=== PATIENT | female | born 1945 | race Caucasian/White ===

== ENCOUNTER → 2023-11-02 09:28 | Outpatient (REF) | payer MEDICARE, OTHER, SELFPAY ==
[2023-11-02 10:18] LABS: % Basophils 0.2 % (0-2); % Immature Granulocytes 0.3 % (0-0.5); % Lymphocytes 14.3 % (20.5-51.1); % Monocytes 6.1 % (1.7-9.3); % Neutrophils 79.1 % (42.2-75.2); Absolute Lymphocytes 1.3 10^3/uL (1.2-3.4); Absolute Monocytes 0.6 10^3/uL (0.1-0.6); Absolute Neutrophils 7.2 10^3/uL (1.4-6.5); Hematocrit 44.9 % (37.0-47.0); Hemoglobin 14.5 g/dL (12.0-16.0); Mean Corp Hgb Conc. 32.3 g/dL (33.0-37.0); Mean Corpuscular Hgb 28.2 pg (27.0-31.0); Mean Corpuscular Volume 87.4 fL (81.0-99.0); Mean Platelet Volume 10.4 fL (7.4-10.4); Nucleated Red Blood Cells % 0 %; Platelet Count 324 10^3/uL (130-400); Red Blood Cell Count 5.14 10^6/uL (4.20-5.40); Red Cell Dist. Width 13.3 % (11.5-14.5); White Blood Cell Count 9.2 10^3/uL (4.8-10.8)
[2023-11-02 10:37] LABS: ALT (SGPT) 22 U/L (0-35); AST (SGOT) 23 U/L (14-36); Albumin 4.2 g/dl (3.5-5.0); Alkaline Phosphatase 77 U/L (38-126); Blood Urea Nitrogen 18 mg/dl (7-17); Calcium 9.7 mg/dl (8.4-10.2); Carbon Dioxide 29 mmol/L (22-30); Chloride 102 mmol/L (98-107); Glucose 101 mg/dl (70-99); HDL Cholesterol 52 mg/dl; LDL Cholesterol, Calculated 57 mg/dl; Sodium 138 mmol/L (135-145); Total Bilirubin 0.8 mg/dl (0.2-1.3); Total Cholesterol 130 mg/dl (50-199); Total Protein 6.9 g/dl (6.3-8.2); Triglyceride 109 mg/dl (10-149); Very Low Density Lipoprotein 21 mg/dl (0-30); eGFR > 60.00
[2023-11-02 10:50] LABS: Potassium 4.1 mmol/L (3.5-5.1)
[2023-11-02 11:08] LABS: TSH Reflex To Free T4 0.91 uIU/ml (0.47-4.68)
[2023-11-02 12:20] LABS: Glycohemoglobin (HgbA1c) 5.8 % (4.0-5.6)
== END ==
LOC: REG 09:28
PROVIDERS: ATTENDING PHYSICIAN Emergency Medicine
DX: I10 Essential (primary) hypertension (principal); R73.03 Prediabetes; E78.00 Pure hypercholesterolemia, unspecified
CPT/HCPCS: 36415; 80053; 80061; 83036; 84443; 85025

== ENCOUNTER → 2024-01-01 14:36 | Outpatient (REF) | payer MEDICARE, OTHER, SELFPAY ==
[2024-01-01 16:30] LABS: % Basophils 0.3 % (0-2); % Immature Granulocytes 0.3 % (0-0.5); % Lymphocytes 15.1 % (20.5-51.1); % Monocytes 6.9 % (1.7-9.3); % Neutrophils 77.4 % (42.2-75.2); Absolute Lymphocytes 1.5 10^3/uL (1.2-3.4); Absolute Monocytes 0.7 10^3/uL (0.1-0.6); Absolute Neutrophils 7.4 10^3/uL (1.4-6.5); Hemoglobin 14.2 g/dL (12.0-16.0); Mean Corp Hgb Conc. 32.3 g/dL (33.0-37.0); Mean Corpuscular Hgb 27.7 pg (27.0-31.0); Mean Corpuscular Volume 85.8 fL (81.0-99.0); Mean Platelet Volume 10.8 fL (7.4-10.4); Nucleated Red Blood Cells % 0 %; Platelet Count 314 10^3/uL (130-400); Red Blood Cell Count 5.13 10^6/uL (4.20-5.40); Red Cell Dist. Width 13.4 % (11.5-14.5); White Blood Cell Count 9.6 10^3/uL (4.8-10.8)
[2024-01-01 16:44] LABS: Uric Acid 5.9 mg/dl (2.5-6.2)
[2024-01-01 16:48] LABS: Erythrocyte Sed Rate 13 mm/hour (0-20)
== END ==
LOC: REG 14:36
PROVIDERS: ATTENDING PHYSICIAN Orthopaedic Surgery; FAMILY PHYSICIAN Emergency Medicine
DX: M10.9 Gout, unspecified (principal)
CPT/HCPCS: 36415; 84550; 85025; 85652

== ENCOUNTER 2024-03-21 10:13 | Emergency (ER) | payer MEDICARE, OTHER, SELFPAY ==
[2024-03-21 10:20] VITALS: BP 127/83
[2024-03-21 10:46] VITALS: BP 122/59
[2024-03-21 10:50] VITALS: BMI 30.7
[2024-03-21 11:00] VITALS: BP 113/62
[2024-03-21] MEDS: TORADOL 30 MG IV (11:39)
[2024-03-21] MEDS: NSS 1000 IV (11:39)
[2024-03-21] MEDS: ZOFRAN 4 MG IV (11:40)
[2024-03-21 11:50] LABS: % Basophils 0.1 % (0-2); % Immature Granulocytes 0.4 % (0-0.5); % Lymphocytes 7.1 % (20.5-51.1); % Neutrophils 84.4 % (42.2-75.2); Absolute Immature Granulocytes 0.1 10^3/uL (0-0.05); Absolute Monocytes 1.1 10^3/uL (0.1-0.6); Hemoglobin 16.4 g/dL (12.0-16.0); Mean Corp Hgb Conc. 34.9 g/dL (33.0-37.0); Mean Platelet Volume 9.9 fL (7.4-10.4); Nucleated Red Blood Cells % 0 %; Platelet Count 379 10^3/uL (130-400); Red Blood Cell Count 5.66 10^6/uL (4.20-5.40); Red Cell Dist. Width 13.2 % (11.5-14.5); White Blood Cell Count 14.2 10^3/uL (4.8-10.8)
[2024-03-21 12:12] LABS: ALT (SGPT) 17 U/L (0-35); AST (SGOT) 21 U/L (14-36); Albumin 4.3 g/dl (3.5-5.0); Alkaline Phosphatase 64 U/L (38-126); Blood Urea Nitrogen 28 mg/dl (7-17); Calcium 9.8 mg/dl (8.4-10.2); Carbon Dioxide 33 mmol/L (22-30); Chloride 94 mmol/L (98-107); Estimated Creatinine Clearance 55 ml/min; Glucose 114 mg/dl (70-99); Lipase 46 U/L (23-300); Potassium 3.6 mmol/L (3.5-5.1); Sodium 139 mmol/L (135-145); Total Protein 6.7 g/dl (6.3-8.2); eGFR > 60.00
[2024-03-21 13:49] LABS: Urine Albumin Trace (Neg - Trace); Urine Bilirubin Negative (Negative); Urine Character Clear (Clear); Urine Color Yellow; Urine Glucose Negative (Negative); Urine Ketone Negative (Negative); Urine Leukocyte 2+ (Negative); Urine Nitrite Negative (Negative); Urine Occult Blood Negative (Negative); Urine Urobilinogen Negative (Neg - 1+)
[2024-03-21 13:58] LABS: Urine Bacteria Few (Negative); Urine Hyaline Cast 0-2 /LPF (0-2); Urine Red Blood Cell 0-2 /HPF (0-2); Urine Squamous Cell 21-25 /LPF (Few)
[2024-03-21] MEDS: NSS 500 IV (15:26)
[2024-03-21] MEDS: REGLAN 10 MG IV (15:27)
[2024-03-21] MEDS: BENTYL 20 MG IM (15:27)
[2024-03-21 17:07] VITALS: BP 156/71
--- NOTE | 2024-03-21 17:18 | ED.GENMED ---
History of Present Illness
General
Chief Complaint: Abdominal Pain
Source: patient and family
Exam Limitations: none
Time Seen by Provider: 03/21/24 11:12
Nursing documentation reviewed up to this point in time: agreed with
History of Present Illness
History of Present Illness:
78-year-old female past ministry of hypertension hyperlipidemia, GERD anxiety depression presenting to the emergency department today with concerns of constipation over the past 4 days or so there is that she is very nauseous unable to tolerate by
mouth and has severe lower abdominal pain. Denies any fever chest pain shortness of breath.
Past History
Past History
ED Past Medical History: HTN and Psychiatric (Anxiety)
ED Past Surgical History: Appendectomy, Gynecological and Orthopedic (Right TKR)
Social History
Tobacco: Non-smoker
Alcohol: None
Drug: None
Personal:
Living: with family
Employment: Retired
Family History
Family History: Hypertension
Review of Systems
Review of Systems
Allergies reviewed?: Yes
All Other Systems: ROS reviewed and negative except as documented in HPI and ROS
Phy Exam
Physical Exam
Physical Exam:
GENERAL: Alert , in no apparent distress
EYE: pupils equal and reactive
NECK: Supple, no significant adenopathy.
ENT: o/p clr, mmm.
CARDIAC: Regular rate and rhythm .
LUNGS: Clear breath sounds bilaterally, no acute respiratory distress, no wheezes/rales/rhonchi
ABDOMEN: Diffuse abdominal pain somewhat bloated.
NEUROLOGICAL: Alert and oriented, no focal neuro deficits
SKIN: Warm and dry, skin intact.
MUSCULOSKELETAL: No edema, well perfused.
PSYCH: Normal and appropriate interaction.
Course
Orders/Labs/Results
Orders:
Orders
03/21/24 11:18
0.9% Sodium Chloride 1000 ml [Nss] 1,000 ml IV BOLUS
Ketorolac [Toradol] 30 mg IV NOW STA
Ondansetron Injectable [Zofran] 4 mg IV NOW STA
03/21/24 11:19
CT Abd/Pel (IV only)-DH only Urgent
Comment:
Reason For Exam: diffuse abd pain, no BM for 5 days
03/21/24 11:37
Complete Blood Count/With Diff Urgent
Comprehensive Metabolic Panel Urgent
Lipase Urgent
03/21/24 13:26
Urinalysis Reflex To Culture Urgent
Date Specimen was Collected: 03/21/24
Time Specimen was Collected: 13:25
Urine Microscopic Reflex Cult Urgent
Urine Culture Urgent
DALI Source: U
Specimen Description:
Date Specimen was Collected: 03/21/24
Time Specimen was Collected: 13:25
03/21/24 15:21
0.9% Sodium Chloride 500 ml [Nss] 500 ml IV BOLUS
Dicyclomine HCl [Bentyl] 20 mg IM NOW STA
Metoclopramide [Reglan] 10 mg IV NOW STA
03/21/24 17:25
Lactic Acid Urgent
Abnormal Lab Results
03/21/24 03/21/24
11:37 13:26
WBC 14.2 H 10^3/uL
(4.8-10.8)
RBC 5.66 H 10^6/uL
(4.20-5.40)
Hgb 16.4 H g/dL
(12.0-16.0)
Abs Immat Gran (auto) 0.1 H 10^3/uL
(0-0.05)
Absolute Neuts (auto) 12.0 H 10^3/uL
(1.4-6.5)
Absolute Lymphs (auto) 1.0 L 10^3/uL
(1.2-3.4)
Absolute Monos (auto) 1.1 H 10^3/uL
(0.1-0.6)
Neutrophils % 84.4 H %
(42.2-75.2)
Lymphocytes % 7.1 L %
(20.5-51.1)
Chloride 94 L mmol/L
(98-107)
Carbon Dioxide 33 H mmol/L
(22-30)
BUN 28 H mg/dl
(7-17)
Glucose 114 H mg/dl
(70-99)
Leukocyte Esterase Rfl 2+ A
(Negative)
Urine Bacteria (Reflex) Few A
(Negative)
03/21/24 11:37
03/21/24 11:37
Vital Signs
Initial and Last Documented VS:
Initial Vital Signs
Temp Pulse Resp BP Pulse Ox
98.1 F 71 18 127/83 96
03/21/24 10:20 03/21/24 10:20 03/21/24 10:20 03/21/24 10:20 03/21/24 10:20
Last Documented Vital Signs
Temp Pulse Resp BP Pulse Ox
98.1 F 72 21 156/71 96
03/21/24 10:20 03/21/24 17:07 03/21/24 17:07 03/21/24 17:07 03/21/24 17:00
MDM/Problems Addressed
MDM/Problems Addressed:
78-year-old female presenting to the emergency department today with concerns of initial constipation over the past few days but worsening diffuse abdominal pain over the past 24 hours or so. Upon arrival vital signs are normal. Patient does have
a white count of 14.2 on labs elevated BUN to creatinine ratio of 28 2.9 likely representing dehydration was given fluids here. Urinalysis without acute abnormalities. CT scan did not show bowel obstruction but did show large volume of loose
liquid stool no signs of significant inflammation.. Patient was given multiple medications including Bentyl multiple nausea medications and pain medication upon reassessment patient did have some improvement and did appear comfortable. The case
was discussed with her and her daughter who does help her at home they are to monitor symptoms at home try medications to help with bowel movements and if symptoms are progressing or her nausea is persisting without ability to tolerate by mouth she
will return for further assessment.
*Critical Care Note
Total Time (30-74mins, 75-104mins- exclusive of procedures): Not Applicable
ED Attending Note
-
Portions of this chart may have been created with voice recognition software.� Occasional wrong word or��sound alike� substitutions may have occurred due to the inherent limitations of voice recognition software.
Discharge Plan
Departure
Patient Disposition: Home (Routine Discharge)
Date of Disposition: 03/21/24
Time of Disposition: 17:40
Patient with high blood pressure during this ER visit?: No
Condition: Good
Covid-19: Not Applicable
Discharge Problem:
Abdominal pain
Instructions: Constipation, Adult (DC), Abdominal Pain
Prescriptions:
New
ondansetron 4 mg tablet,disintegrating
4 mg PO Q8H PRN (Reason: nausea and vomiting) Qty: 7 0RF
No Action
atenolol 25 MG tablet
25 mg PO BID
hydrochlorothiazide 25 MG tablet
25 mg PO DAILY
rosuvastatin [Crestor] 5 mg Tablet
5 mg PO QPM
aspirin [Baby Aspirin] 81 mg Tablet,Chewable
81 mg PO DAILY
buspirone [BuSpar] 5 mg Tablet
5 mg PO BID
Referrals:
Anjana Cooper MD [Family Provider] -
Activity Restrictions/Additional Instructions:
You came to the emergency department today with concerns of abdominal discomfort. Here you had a reassuring assessment. Your CT scan did not show any bowel obstruction it did show a large amount of stool. Medications to help with stooling should
be helpful over the next few days. You did have some findings on your labs that would indicate a slight degree of dehydration. You were given fluids here which alleviated that. It is important that you start to drink fluids including electrolytes
at home. If you are not able to tolerate by mouth please return for further assessment here.
Interventions
Interventions:
*Risk Screen - Suicide Last Done: 03/21/24 10:20
*General Assessment Last Done: 03/21/24 10:20
*Neglect/Abuse Screening Last Done: 03/21/24 10:20
ED- Fall Risk Assessment Last Done: 03/21/24 10:52
*ED COVID-19 Vaccine History Last Done: 03/21/24 10:20
CY-Oopvml-Stdzoykqjq Assessment Last Done: 03/21/24 10:56
Discharge Date and Time
Print Language: LITHUANIAN
[2024-03-21 17:49] LABS: Lactic Acid 1.3 mmol/L (0.7-2.0)
[2024-03-21 18:03] VITALS: BP 156/71
== END 2024-03-21 18:05 | disposition home or self-care (01) ==
LOC: EMR 10:13
PROVIDERS: Physician Assistant; EMERGENCY PHYSICIAN Emergency Medicine; FAMILY PHYSICIAN Emergency Medicine
DX: R10.9 Unspecified abdominal pain (principal); K59.00 Constipation, unspecified; I10 Essential (primary) hypertension; E78.00 Pure hypercholesterolemia, unspecified; K21.9 Gastro-esophageal reflux disease without esophagitis; F41.8 Other specified anxiety disorders; Z82.49 Family history of ischemic heart disease and other diseases of the circulatory system; Z90.49 Acquired absence of other specified parts of digestive tract
CPT/HCPCS: 99284; 96374; 96375; 96372; 96361; 74177; 80053; 81003; 81015; 83605; 83690; 85025; 87086; Q9967

== ENCOUNTER 2024-03-24 13:59 | Inpatient (IN) | payer MEDICARE, OTHER, SELFPAY ==
[2024-03-24] VITALS (13 sets, daily range): BP systolic 97–132; BP diastolic 59–75; BMI 30.2; BMI 29.0
--- NOTE | 2024-03-24 09:09 | ED.GENMED ---
History of Present Illness
General
Chief Complaint: Chest Pain
Source: patient
Exam Limitations: none
Time Seen by Provider: 03/24/24 08:43
Nursing documentation reviewed up to this point in time: agreed with
History of Present Illness
History of Present Illness:
Patient treated in ED 3 days ago and diagnosed with potential constipation, after blood work and CT scan, returns to ED with continual difficulty with bowel movements, associated with decreased appetite with nausea sensation. Patient has also noted
increased abdominal distention, as well as 'indigestion'. Patient denies chest pain or shortness of breath. Secondary to discomfort, patient felt 'sweaty' last night. Denies fever or chills. Denies recent change in medications or diet. Denies
recent illness. Denies recent travel. Denies sick contact.
Past History
Past History
ED Past Medical History: HTN and Psychiatric (Anxiety)
ED Past Surgical History: Appendectomy, Gynecological and Orthopedic (Right TKR)
Social History
Tobacco: Non-smoker
Alcohol: None
Drug: None
Personal:
Living: with family
Employment: Retired
Family History
Family History: Hypertension
Review of Systems
Review of Systems
Allergies reviewed?: Yes
All Other Systems: ROS reviewed and negative except as documented in HPI and ROS
Constitutional: Reports no symptoms; Denies fever
EENT: Reports no symptoms
Respiratory: Reports no symptoms
Cardiac: Reports no symptoms; Denies chest pain
ABD/GI: Reports abdominal pain, nausea and constipated; Denies vomiting
Musculoskeletal: Reports no symptoms
Skin: Reports no symptoms
Neurological: Reports no symptoms
Phy Exam
Physical Exam
Physical Exam:
Physical Exam
General: mild distress, uncomfortable. afebrile
Head: nc/at. eomi
Neck: supple. no meningeal signs.
Heart: s1/s2 regular rate and rhythm, no murmur. equal radial pulses.
Lungs: no acute respiratory distress. clear bilaterally
Abdomen: normal bowel sounds. diffusely tender with mild distention.
Neuro: alert and oriented. no focal neurological deficits
Skin: no rash
Psychiatric: well kept. interactive and cooperative
Extremities: no edema. no calf tenderness.
Scores
Heart Score for Chest Pain Patients
STEMI patient?: Not applicable
Course
Orders/Labs/Results
Orders:
Orders
03/24/24 Breakfast
NPO
Allow oral meds: No
Allow clear liquids: No
03/24/24 08:21
Electrocardiogram (*1) Urgent
Reason for Study: Chest Pain
03/24/24 08:22
EKG- Treatment ONCE
03/24/24 09:03
Complete Blood Count/With Diff Urgent
03/24/24 09:08
Add On- LAB Urgent
Tests Added?: lipase, magnesium
03/24/24 09:09
0.9% Sodium Chloride 500 ml [Nss] 500 ml IV BOLUS
Ondansetron Injectable [Zofran] 4 mg IV NOW STA
Pantoprazole [Protonix IV] 40 mg IV NOW STA
03/24/24 09:11
CT Abd/pel W Iv And Oral Contr Urgent
Comment:
Reason For Exam: abd pain w distention
Iohexol [Omnipaque] See Protocol PO NOW STA
03/24/24 09:29
Troponin I Urgent
03/24/24 10:50
Comprehensive Metabolic Panel Urgent
Lipase Urgent
Magnesium Urgent
Urinalysis Reflex To Culture Urgent
Date Specimen was Collected: 03/24/24
Time Specimen was Collected: 10:38
Urine Microscopic Reflex Cult Urgent
03/24/24 13:33
0.9% Sodium Chloride [Nss (Preservative Free)] 0.25 ml IV ONCE@1333 ONE
Lorazepam [Ativan] 0.5 mg IV NOW STA
03/24/24 13:45
Admit/Transfer Patient As Directed
Co-Sign Provider:
Level of Care: Inpatient admission
Assign to:: Telemetry
Physician / Group: scott
Diagnosis: SBO
Reason for Telemetry: Arrhythmia
Date to Stop Telemetry: 03/27/24
Time to Stop Telemetry: 11:00
Reason for Hospitalization: SBO
Expected length of stay greater than two midnights?: Yes
ELOS- Estimated Length of Stay in days: 3
I certify the patient meets the requirements for IP care: Yes
PRN Pain Medication Management As Directed
May give lesser potent ordered pain med per pt: Yes
preference::
Protocol:: Medication orders for pain may be administered in a
manner that supports deferring to patient preference
when the pt is:
- Requesting an ordered lesser potent pain medication.
Least to most potent pain medications are defined
as: acetaminophen < NSAID < tramadol < opioids
(morphine, oxycodone, hydromorphone).
- Requesting a lesser dose of the same medication IF
ORDERED.
- Requesting a less intrusive route of administration
if both routes are prescribed by the provider (PO <
IV).
03/24/24 13:46
Code Status As Directed
Resuscitation Status: Do not resuscitate
Reached after discussion with pt or family/Healthcare POA: Yes
DNR Bracelet Application ONCE
03/24/24 13:50
Cr Chest Portable [CR Chest Portable - 1 View] Stat
Comment:
Reason For Exam: post gtube placement
Reason Study Needs to be Portable: Unable to Transport
03/24/24 14:00
Flush (0.9% Sodium Chloride) [Flush (Nss)] See Dose Instructions IV PER PROTOCOL
03/24/24 17:27
0.9% Sodium Chloride 1000 ml [Nss] 1,000 ml IV 80 mls/hr
HydrALAZINE [Apresoline] 5 mg IV Q6HPRN PRN
Lorazepam [Ativan] 0.5 mg IV Q8HPRN PRN
Morphine Sulfate 0.5 mg IV Q4HPRN PRN
Ondansetron Injectable [Zofran] 4 mg IV Q6HPRN PRN
03/24/24 17:27
CARDIOLOGY CONSULT Routine
Consulting Provider: Elmo Boyd
Was physician already notified: Yes
Colon Surgery Consult [ColoRectal Surgery Consult] Routine
Consulting Provider: Michael Leiva
Was physician already notified: Yes
Activity As Directed
Activity Level: As Tolerated
Vital Signs As Directed
Frequency: Per unit guidelines
DX Deep Vein Thrombosis Video Routine
03/24/24 18:00
Enoxaparin Sodium [Lovenox] 40 mg SC QPM
03/25/24 06:17
Basic Metabolic Panel IN AM
Complete Blood Count/No Diff IN AM
Magnesium IN AM
03/26/24 06:00
Basic Metabolic Panel IN AM
Complete Blood Count/No Diff IN AM
03/27/24 06:00
Basic Metabolic Panel IN AM
Complete Blood Count/No Diff IN AM
03/27/24 11:00
DC Protocol for Telemetry ONCE
03/28/24 06:00
Basic Metabolic Panel IN AM
Complete Blood Count/No Diff IN AM
03/29/24 06:00
Basic Metabolic Panel IN AM
Complete Blood Count/No Diff IN AM
Abnormal Lab Results
03/24/24 03/24/24
09:03 10:50
WBC 13.3 H 10^3/uL
(4.8-10.8)
RBC 6.01 H 10^6/uL
(4.20-5.40)
Hgb 17.0 H g/dL
(12.0-16.0)
Hct 49.2 H %
(37.0-47.0)
Plt Count 467 H D 10^3/uL
(130-400)
Abs Immat Gran (auto) 0.1 H 10^3/uL
(0-0.05)
Absolute Neuts (auto) 11.3 H 10^3/uL
(1.4-6.5)
Absolute Lymphs (auto) 1.0 L 10^3/uL
(1.2-3.4)
Absolute Monos (auto) 0.8 H 10^3/uL
(0.1-0.6)
Neutrophils % 84.8 H %
(42.2-75.2)
Lymphocytes % 7.6 L %
(20.5-51.1)
Chloride 97 L mmol/L
(98-107)
Carbon Dioxide 32 H mmol/L
(22-30)
BUN 43 H mg/dl
(7-17)
Glucose 107 H mg/dl
(70-99)
Magnesium 2.9 H mg/dl
(1.6-2.3)
Total Protein 6.2 L g/dl
(6.3-8.2)
Urine Ketones 2+ A
(Negative)
Urine Bilirubin 1+ A
(Negative)
Leukocyte Esterase Rfl Trace A
(Negative)
Urine Bacteria (Reflex) Few A
(Negative)
03/24/24 09:03
03/24/24 10:50
Vital Signs
Initial and Last Documented VS:
Initial Vital Signs
Temp Pulse Resp BP Pulse Ox
97.6 F 67 18 97/71 96
03/24/24 08:29 03/24/24 08:29 03/24/24 08:29 03/24/24 08:29 03/24/24 08:29
Last Documented Vital Signs
Temp Pulse Resp BP Pulse Ox
98.4 F 64 18 147/68 93
03/25/24 07:30 03/25/24 07:30 03/25/24 07:30 03/25/24 07:30 03/25/24 07:30
MDM/Problems Addressed
MDM/Problems Addressed:
History, exam, and CT scan consistent with bowel obstruction. NG tube will be placed, as patient remains symptomatic with significant abdominal distention.
Dr. Michael Leiva, colorectal surgery, notified via [facility] text.
*Critical Care Note
Total Time (30-74mins, 75-104mins- exclusive of procedures): Not Applicable
ED Attending Note
-
Portions of this chart may have been created with voice recognition software.� Occasional wrong word or��sound alike� substitutions may have occurred due to the inherent limitations of voice recognition software.
Discharge Plan
Departure
Patient Disposition: Admit
Date of Disposition: 03/24/24
Time of Disposition: 13:00
Admit to: Telemetry
Presentation/result/management discussed w/ accepting MD/DO: Hospitalist
Discharge Problem:
Bowel obstruction, Second degree heart block
Interventions
Interventions:
*Risk Screen - Suicide Last Done: 03/24/24 09:30
*General Assessment Last Done: 03/24/24 09:30
*Neglect/Abuse Screening Last Done: 03/24/24 09:30
*Nursing Disposition Last Done: 03/24/24 17:21
ED- Cardiac Assessment Last Done: 03/24/24 09:30
Discharge Date and Time
Discharge Date/Time: 03/24/24 17:21
[2024-03-24 09:12] LABS: % Basophils 0.5 % (0-2); % Eosinophils 0.8 % (0-6); % Immature Granulocytes 0.5 % (0-0.5); % Lymphocytes 7.6 % (20.5-51.1); % Monocytes 5.8 % (1.7-9.3); % Neutrophils 84.8 % (42.2-75.2); Absolute Basophils 0.1 10^3/uL (0-0.2); Absolute Eosinophils 0.1 10^3/uL (0-0.7); Absolute Immature Granulocytes 0.1 10^3/uL (0-0.05); Absolute Monocytes 0.8 10^3/uL (0.1-0.6); Absolute Neutrophils 11.3 10^3/uL (1.4-6.5); Hematocrit 49.2 % (37.0-47.0); Mean Corp Hgb Conc. 34.6 g/dL (33.0-37.0); Mean Corpuscular Hgb 28.3 pg (27.0-31.0); Mean Corpuscular Volume 81.9 fL (81.0-99.0); Mean Platelet Volume 9.5 fL (7.4-10.4); Nucleated Red Blood Cells % 0 %; Platelet Count 467 10^3/uL (130-400); Red Blood Cell Count 6.01 10^6/uL (4.20-5.40); Red Cell Dist. Width 13.5 % (11.5-14.5); White Blood Cell Count 13.3 10^3/uL (4.8-10.8)
[2024-03-24] MEDS: OMNIPAQUE 50 ML PO (09:35)
[2024-03-24] MEDS: ZOFRAN 4 MG IV ×2 (09:35→15:00)
[2024-03-24] MEDS: PROTONIX IV 40 MG IV (09:35)
[2024-03-24] MEDS: NSS 500 IV (09:36)
[2024-03-24 10:07] LABS: Troponin I 0.022 ng/ml
[2024-03-24 11:06] LABS: Urine Albumin Trace (Neg - Trace); Urine Bilirubin 1+ (Negative); Urine Character Clear (Clear); Urine Color Yellow; Urine Glucose Negative (Negative); Urine Ketone 2+ (Negative); Urine Leukocyte Trace (Negative); Urine Nitrite Negative (Negative); Urine Occult Blood Negative (Negative); Urine Specific Gravity 1.015 (<1.030); Urine Urobilinogen Negative (Neg - 1+)
[2024-03-24 11:12] LABS: ALT (SGPT) 18 U/L (0-35); AST (SGOT) 24 U/L (14-36); Albumin 3.8 g/dl (3.5-5.0); Alkaline Phosphatase 63 U/L (38-126); Blood Urea Nitrogen 43 mg/dl (7-17); Calcium 9.4 mg/dl (8.4-10.2); Carbon Dioxide 32 mmol/L (22-30); Chloride 97 mmol/L (98-107); Estimated Creatinine Clearance 53 ml/min; Glucose 107 mg/dl (70-99); Lipase 45 U/L (23-300); Magnesium 2.9 mg/dl (1.6-2.3); Potassium 3.6 mmol/L (3.5-5.1); Sodium 140 mmol/L (135-145); Total Bilirubin 1.3 mg/dl (0.2-1.3); Total Protein 6.2 g/dl (6.3-8.2); eGFR 57.66
[2024-03-24 11:42] LABS: Urine Red Blood Cell None Seen /HPF (0-2)
[2024-03-24 11:43] LABS: Urine Bacteria Few (Negative)
--- NOTE | 2024-03-24 13:02 | HPS.HSE ---
Family Physician
-
Family Physician: Anjana Cooper MD
Chief Complaint
-
constipation
History of Present Illness
78 year old with PMH for HTN, anxiety, depression, HLD presented to us with constipation. stated decreased appetite and nausea. denied vomit. patient stated no BM for for more than a week. stated abdominal distention and pain. patient was
evaluated here on . she had an CT with the impression of no bowel obstruction. denied ALVA, dizzy or syncopal episode. denied fever, chills, chest pain, sob.denied dysuria or hematuria
CT today with distal colonic obstruction located in the proximal sigmoid colon. NGT placed in ER. admitting for further management.
Medical History
Past Medical History
Past Medical History: Reports Other
Additional Past Medical History:
Anxiety
Hypertension
Depression
Irritable bowel syndrome
Hypertension hyperlipidemia
Past Surgical History: Reports Other
Additional Past Surgical History:
Appendectomy
Hysterectomy
left knee replacement
Right eye cataract surgery
Social History
Tobacco: Non-smoker
Alcohol: None
Drug: None
Family History
Family History: Not pertinent
Allergies / Home Medications
Allergies reflects when Allergies were last updated in [facility].
Home Medications with original date entered in [facility]
Allergy/Medication List:
Allergies
Allergy/AdvReac Type Severity Reaction Status Date / Time
amoxicillin [From Augmentin] Allergy Hives Verified 03/24/24 08:30
clavulanic acid Allergy Hives Verified 03/24/24 08:30
[From Augmentin]
lisinopril Allergy Hives Verified 03/24/24 08:30
Sulfa (Sulfonamide Allergy Rash Verified 03/24/24 08:30
Antibiotics)
Home Medications
atenolol 25 mg tablet 25 mg PO BID 07/28/12
hydrochlorothiazide 25 mg tablet 25 mg PO DAILY 07/28/12
aspirin 81 mg chewable tablet 81 mg PO DAILY 08/08/22
alprazolam 0.25 mg tablet 0.25 mg PO BIDPRN PRN anxiety 03/24/24
escitalopram oxalate 5 mg tablet 5 mg PO DAILY 03/24/24
rosuvastatin 5 mg tablet 5 mg PO QPM 03/24/24
Review of Systems
-
Constitutional: Reports No Symptoms
EENT: Reports No Symptoms
Respiratory: Reports No Symptoms
Cardiac: Reports No Symptoms
Abdomen/GI: Reports Nausea and Constipated
: Reports No Symptoms
Musculoskeletal: Reports No Symptoms
Skin: Reports No Symptoms
Neurological: Reports No Symptoms
Endocrine: Reports No Symptoms
Hematologic/Lymphatic: Reports No Symptoms
Psych: Reports No Symptoms
Physical Exam
Vital Signs
Vital Signs
Temp Pulse Resp BP Pulse Ox
97.6 F 68 18 113/69 96
03/24/24 08:29 03/24/24 11:00 03/24/24 08:29 03/24/24 11:00 03/24/24 10:00
Physical Exam
General: Well Developed, Well Nourished and No Apparent Distress
HEENT: NormoCephalic, Moist mucous membranes and Atraumatic
Respiratory: Clear
Cardiac: S1/S2 and Regular Rhythm; No Murmur or Rub
GI: Tender and Distended; No Organomegaly
Rectal: Deferred by Provider
Musculoskeletal: No Clubbing, No Cyanosis and No Edema
Skin: No Rash
Neuro: AO x 3 and Nonfocal/grossly intact
Psych: Calm
Laboratory Results
-
03/24/24 09:03
03/24/24 10:50
Laboratory Results
Total Bilirubin 1.3 mg/dl (0.2-1.3) 03/24/24 10:50
AST 24 U/L (14-36) 03/24/24 10:50
ALT 18 U/L (0-35) 03/24/24 10:50
Alkaline Phosphatase 63 U/L (38-126) 03/24/24 10:50
Troponin I 0.022 ng/ml 03/24/24 09:29
Lipase 45 U/L (23-300) 03/24/24 10:50
Data Reviewed
-
CT Scan: Report Reviewed by me
Lab Data: Labs Reviewed by me
Impression/Plan
-
# Severe small bowel and colonic obstruction located in the proximal sigmoid colon
-NGT placed in ER
-NPO
-Colorectal surgery consulted
-CT abdomen pelvis with severe small bowel and colonic distention proximal to a DISTAL COLONIC OBSTRUCTION located in the PROXIMAL SIGMOID COLON. Diagnostic possibilities are (1) an obstructing adenocarcinoma or (2) an obstructing stricture
secondary to chronic diverticular disease.
2. Severe diverticulosis in the sigmoid colon.
3. Small amount of peritoneal fluid in the pelvis.
4. Previous appendectomy and hysterectomy.
5. Small hiatal hernia.
6. Moderate number of bilateral parapelvic renal cysts.
7. 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
#2nd degree Mobitz 1 AV block
-EKG with SINUS RHYTHM WITH 2ND DEGREE A-V BLOCK (MOBITZ I) WITH 2:1 A-V CONDUCTION
-Avoid AV blocking agents
-cardiology consulted
# Leukocytosis, thrombocytosis likely reactive
-Defer antibiotics at at this time
-Continue to monitor CBC
#hemoconcentration likely dehydration
-hgb 17.0, 49.2
-Normal saline continued
#hypermagnesemia
-magnesium 2.9
-Fluids continued
-Monitor magnesium in a.m.
#anxiety
= Ativan IV every 8 hours ordered for anxiety
#essential HTN
-Hold HCTZ and atenolol
-Hydralazine as needed for systolic BP greater than 160
#DVT prophylaxis
-Lovenox subcu
# CODE STATUS
-DNR
--- NOTE | 2024-03-24 13:18 | W.PN.UPDATE ---
Update Note
Progress Note Update
I have independently evaluated the patient and agree with assessment and plan written on the same date. In addition:
78yo F with PMHx of diverticulitis, HTN, HLD came with nausea and abd pain for 1 week. She was seen in ED [address] at that time showed constipation, but with decompressed sigmoid. At this time concern for large bowel obstruction with
transition point in the sigmoid.
Patient has Hx of hysterectomy and appendectomy - high risk for adhesions
Accidental finding of 2nd degree AVB type 2
A/P:
#Large bowel obstruction
NG for decompression
NPO
Colorectal Sx eval
IVF
#2nd degree Mobitz type 1 AVB
Incidental
avoid AVB agents
Cardio consult
#Essential HTN
use IV meds as needed to control BP
#HLD
#Anxiety d/o
cont meds when able to take PO
#Leukocytosis
#Thrombocytosis
Reactive
no inducation for Abx
follow CBC
#Diverticulosis
#Small hiatal hernia
#DJD
follow up with PCP upon d/c
DVT ppx hep
Full code
We have spent at least 60min admitting the patient
[2024-03-24] MEDS: ATIVAN 0.5 MG IV (13:39)
[2024-03-24] MEDS: NSS (PRESERVATIVE FREE) 0.25 ML IV (13:40)
--- NOTE | 2024-03-24 14:51 | CON.CRS ---
Medical History
-
History of Present Illness:
Patient is a 78-year-old female with PMH of HTN, HLD, anxiety/depression and GERD who presents with concern of constipation and nausea associated with abdominal bloating. She first presented to [place] ED on 03/21/2024 due to significant nausea
and no BMs for 4 days. At that time, a CT scan was done, but a report is not available in [facility]. Per the ED note, the CT scan 'did not show bowel obstruction but did show large volume of loose liquid stools, no signs of significant
inflammation', so the patient was discharged with a bowel regiment. Over the last few days, she tried magnesium citrate and other motility agents, but did not pass any stool or much flatus. As she has had significant nausea and a couple of
episodes of dry heaving, she came back to the ED. She denies any vomiting. She has been having significant abdominal discomfort and bloating, but no abdominal pain. In the ED, her WBC was 13.[address] scan was done showing dilated small bowel
and proximal colon up to the point of a sigmoid obstruction, possibly a mass versus diverticular stricture. The cecum measuring 9 cm, no evidence of perforation or pneumatosis.
Past Medical History
Past Medical History: Other (As above)
Past Surgical History: Other (Appendectomy, right TKR, hysterectomy, shoulder surgery x2)
Social History
Tobacco: Non-Smoker
Alcohol: None
Personal:
Employment: Retired
Family History
Family History: Other (No CRC)
Allergies / Home Medications
Allergy/AdvReac Type Severity Reaction Status Date / Time
amoxicillin [From Augmentin] Allergy Hives Verified 03/24/24 08:30
clavulanic acid Allergy Hives Verified 03/24/24 08:30
[From Augmentin]
lisinopril Allergy Hives Verified 03/24/24 08:30
Sulfa (Sulfonamide Allergy Rash Verified 03/24/24 08:30
Antibiotics)
�Medication �Instructions �Recorded �Confirmed �Type
atenolol 25 mg tablet 25 mg PO BID Blood Pressure 07/28/12 03/24/24 History
hydrochlorothiazide 25 mg tablet 25 mg PO DAILY Blood Pressure 07/28/12 03/24/24 History
aspirin 81 mg chewable tablet 81 mg PO DAILY Blood Clot 08/08/22 03/24/24 History
Prevention/Tx
alprazolam 0.25 mg tablet 0.25 mg PO BIDPRN PRN anxiety 03/24/24 03/24/24 History
escitalopram oxalate 5 mg tablet 5 mg PO DAILY Mental Health/Anxiety 03/24/24 03/24/24 History
rosuvastatin 5 mg tablet 5 mg PO QPM High Cholesterol 03/24/24 03/24/24 History
Review of Systems
-
All other systems: Negative unless noted
A 10 point review of systems was completed, and was negative except as per HPI.
Physical Exam
Vital Signs
Temp 97.6 F 03/24/24 08:29
Pulse 68 03/24/24 11:00
Resp Rate 18 03/24/24 08:29
Blood pressure 113/69 03/24/24 11:00
SaO2 96 03/24/24 10:00
03/23/24 03/24/24 03/25/24
06:59 06:59 06:59
Actual Weight 87.5 kg
Body Mass Index (BMI) 30.2
Lab Results / Allergies
03/24/24 09:03
03/24/24 10:50
WBC 13.3 10^3/uL (4.8-10.8) H 03/24/24 09:03
Hgb 17.0 g/dL (12.0-16.0) H 03/24/24 09:03
Hct 49.2 % (37.0-47.0) H 03/24/24 09:03
Plt Count 467 10^3/uL (130-400) H D 03/24/24 09:03
Abs Immat Gran (auto) 0.1 10^3/uL (0-0.05) H 03/24/24 09:03
Neutrophils % 84.8 % (42.2-75.2) H 03/24/24 09:03
Allergy/AdvReac Type Severity Reaction Status Date / Time
amoxicillin [From Augmentin] Allergy Hives Verified 03/24/24 08:30
clavulanic acid Allergy Hives Verified 03/24/24 08:30
[From Augmentin]
lisinopril Allergy Hives Verified 03/24/24 08:30
Sulfa (Sulfonamide Allergy Rash Verified 03/24/24 08:30
Antibiotics)
Physical Exam
General: Well Developed and No Apparent Distress
HEENT: Normocephalic and Atraumatic
Respiratory: Non Labored Respirations
GI: Soft, Tender (Non tender, just some upper abdominal discomfort with palpation; no rebound or guarding) and Distended (Moderately distended)
Skin: Warm and Dry
Neuro: AO x 3
Data Reviewed
-
CT Scan: Discussed with Physician (With radiology, [facility]; with Dr. Stone), Discussed with Patient and Discussed with Family (Daughter was present)
Labs: Labs Reviewed by me, Discussed with Patient and Discussed with Family
Assessment / Plan
-
78-year-old female with PMH of HTN, HLD, anxiety/depression and GERD who presents with concern of constipation and nausea associated with abdominal bloating. She first presented to [place] ED on 03/21/2024 due to significant nausea and no BMs for
4 days. At that time, a CT scan was done, but a report is not available in [facility]. Per the ED note, the CT scan 'did not show bowel obstruction but did show large volume of loose liquid stools, no signs of significant inflammation', so the
patient was discharged with a bowel regiment. Over the last few days, she tried magnesium citrate and other motility agents, but did not pass any stool or much flatus. As she has had significant nausea and a couple of episodes of dry heaving, she
came back to the ED. She denies any vomiting or abdominal pain. Her last colonoscopy was >8yrs ago, likely in [place], reported as normal except for polyps and diverticulosis. In the ED, her WBC was 13.3 and a CTAP with PO contrast was done
showing dilated small bowel and proximal colon up to the point of a sigmoid obstruction, possibly a mass versus diverticular stricture. The cecum measuring 9 cm, no evidence of perforation or pneumatosis.
AFVSS
� Large bowel obstruction due to sigmoid narrowing; differential includes sigmoid colon mass versus stricture
�Recommend NGT placement, keep n.p.o. with IVF
�No evidence of hemodynamic instability or peritonitis
�Discussed with Dr. Ramos with GI for possible colonic stent; will plan for tomorrow morning
�Discussed risks and benefits regarding emergent surgery, including but not limited to, definitive relief of obstruction, needing an ostomy and an exploratory laparotomy; discussed risks and benefits regarding nonoperative measures with stent
placement, including but not limited to worsening clinical status and perforation, failure of stent to relieve obstruction or occlusion of stent; after lengthy discussion with patient and patient's daughter (who is a nurse in our [employer]), patient
was in agreement with moving forward with an attempt at colonic stent
�I explained that prior to the procedure, I would obtain her consent to move forward with ex lap and possible ostomy in the case that a stent fails to decompress the colon so that the surgery would not be delayed due to her inability to consent for
herself due to the effects of anesthesia; patient wanted a little more time to consider this, but the daughter was in agreement
� Strict n.p.o. with NGT, no p.o. meds
� Minimize narcotic pain meds, okay for Toradol PRN
� IVF
� Recommend DVT PPx with Lovenox
� Okay for OOB with assist, encourage IS
� Appreciate hospitalist
--- NOTE | 2024-03-24 16:58 | CON.CAR ---
Consultation
Consultation Request
Date/Time Consultation Requested: 03/24/24
Date/Time Consultation Performed: 03/24/24
Requesting Provider: Roula Mejia
Performing Provider: Oliver
Reason for Consultation: AV block
Medical History
-
Chief Complaint: abd distention, nausea, constipation
History of Present Illness:
78-year-old woman past medical history as below who presents with worsening constipation, abdominal distention and nausea. Cardiology is consulted for bradycardia and second-degree AV block.
Patient evaluated in the ED 3 days ago and was diagnosed with constipation. Now returns with worsening symptoms and CT of the abdomen and pelvis revealed bowel obstruction for which GI and surgery are discussing potential stenting +/- ex lap. NG
tube placed in the ER with greater than 1 L of gastric contents suctioned, patient tells me with this she has had some improvement in her symptoms.
In regards to her heart rate, we discussed that prior outpatient nuclear monitoring technician revealed second-degree AV block Mobitz type I in 2020. Telemetry here also showing Mobitz, no high-grade AV block or significant pauses. Patient is not reporting any
lightheadedness, dizziness or syncope to me. Her chest/epigastric discomfort seems to be related to her GI symptoms and is improving with NG tube placement and decompression.
Past medical history:
Hypertension
Hyperlipidemia
Palpitations
Family history of premature CAD
Anxiety
Past Medical History
Past Medical History: Other (as above)
Past Surgical History: Other (as above)
Social History
Tobacco: Non-Smoker
Employment: Retired
Family History
Family History: Reviewed & Not Pertinent
Allergies / Home Medications
Allergy/AdvReac Type Severity Reaction Status Date / Time
amoxicillin [From Augmentin] Allergy Hives Verified 03/24/24 08:30
clavulanic acid Allergy Hives Verified 03/24/24 08:30
[From Augmentin]
lisinopril Allergy Hives Verified 03/24/24 08:30
Sulfa (Sulfonamide Allergy Rash Verified 03/24/24 08:30
Antibiotics)
�Medication �Instructions �Recorded �Confirmed �Type
atenolol 25 mg tablet 25 mg PO BID Blood Pressure 07/28/12 03/24/24 History
hydrochlorothiazide 25 mg tablet 25 mg PO DAILY Blood Pressure 07/28/12 03/24/24 History
aspirin 81 mg chewable tablet 81 mg PO DAILY Blood Clot 08/08/22 03/24/24 History
Prevention/Tx
alprazolam 0.25 mg tablet 0.25 mg PO BIDPRN PRN anxiety 03/24/24 03/24/24 History
escitalopram oxalate 5 mg tablet 5 mg PO DAILY Mental Health/Anxiety 03/24/24 03/24/24 History
rosuvastatin 5 mg tablet 5 mg PO QPM High Cholesterol 03/24/24 03/24/24 History
Review of Systems
-
History Source: Patient and Family
All other systems: Negative unless noted
Physical Exam
Vital Signs
Temp Pulse Resp BP Pulse Ox
97.6 F 72 18 109/66 94
03/24/24 08:29 03/24/24 16:00 03/24/24 08:29 03/24/24 16:00 03/24/24 16:00
Lab Results
03/24/24 09:03
03/24/24 10:50
Troponin I 0.022 ng/ml 03/24/24 09:29
Physical Exam
General: Well Developed
HEENT: Normocephalic and Other (NG tube with bilious contents)
Respiratory: Clear
Cardiac: S1/S2 and Regular Rhythm
Breast: Deferred by me
GI: Distended
Musculoskeletal: No Edema
Skin: Warm and Dry
Neuro: Awake and Alert
Psych: Calm
Impression / Plan
-
Assembler Clip On Sunglasses: Cristiana
Assessment:
Bowel obstruction
2nd degree AV block, Mobitz type I
Hypertension
Hyperlipidemia
Palpitations
Family history of premature CAD
Anxiety
Plan:
-We are asked to evaluate for bradycardia and heart block, ECG and telemetry reviewed which shows sinus rhythm with Wenckebach. I do not see any high-grade AV block or significant pauses.
-Not reporting any lightheadedness, dizziness or syncope
-Prior outpatient nuclear monitoring technician reviewed from 2020 which also identified Wenckebach
-Suspect this is being precipitated by high vagal tone in the setting of bowel obstruction
-Would hold atenolol for now
-Monitor on telemetry overnight
Discussed with patient and daughter who is at bedside
Data Reviewed
-
EKG: Tracing Personally Visualized and interpreted
CT Scan: Image Personally Visualized and interpreted and Report Reviewed by me
Medical Tests (Nuc Med, Echo etc): Report Reviewed by me
Labs: Labs Reviewed by me
Old Records: Reviewed
--- NOTE | 2024-03-24 18:17 | CM ---
CM reviewed patient's chart. Spoke with patient at bedside. CM introduced self and role. Patient with an NGT. It's putting out a large amount of dark green output. Daughter at bedside as well.
PCP: Dr. Anjana Lincoln
Pharmacy: [facility] in [place]
Living situation: Patient lives alone in an apt at [facility]. She has a son and daughter for support.
Finances: Patient denies any social insecurities. She is able to afford her housing, clothing, medications, food, utilities and transportation. 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 Her son pays her bills for her.
DME/Ambulation: Patient ambulates independently. She owns a cane.
Transportation: Rubin's daughter will provide transportation once she is discharged. Patient does not drive.
Agreeable to home health care?: Yes, if needed. (Daughter shared [facility] uses [facility] for PT).
ANTICIPATED DISCHARGE DISPOSITION:
Return home to [facility].
CM will continue to follow case and available for further assistance.
[2024-03-24] MEDS: LOVENOX 40 MG SC (18:28)
[2024-03-24] MEDS: NSS 1000 IV (18:40)
[2024-03-24] MEDS: MORPHINE SULFATE 0.5 MG IV (21:50)
[2024-03-25] VITALS (11 sets, daily range): BP systolic 125–157; BP diastolic 57–74
[2024-03-25 06:40] LABS: Hematocrit 41.6 % (37.0-47.0); Hemoglobin 14.6 g/dL (12.0-16.0); Mean Corp Hgb Conc. 35.1 g/dL (33.0-37.0); Mean Corpuscular Hgb 28.6 pg (27.0-31.0); Mean Corpuscular Volume 81.4 fL (81.0-99.0); Mean Platelet Volume 9.9 fL (7.4-10.4); Platelet Count 383 10^3/uL (130-400); Red Blood Cell Count 5.11 10^6/uL (4.20-5.40); Red Cell Dist. Width 13.5 % (11.5-14.5); White Blood Cell Count 10.3 10^3/uL (4.8-10.8)
[2024-03-25 06:52] LABS: Blood Urea Nitrogen 43 mg/dl (7-17); Calcium 8.8 mg/dl (8.4-10.2); Carbon Dioxide 32 mmol/L (22-30); Chloride 99 mmol/L (98-107); Estimated Creatinine Clearance 57 ml/min; Glucose 79 mg/dl (70-99); Magnesium 2.9 mg/dl (1.6-2.3); Potassium 3.3 mmol/L (3.5-5.1); Sodium 139 mmol/L (135-145); eGFR > 60.00
[2024-03-25] MEDS: NSS 1000 IV ×2 (07:50→22:28)
[2024-03-25] MEDS: KCL 260 MEQ IV (07:51)
[2024-03-25 08:03] LABS: APTT 31.6 Sec (23.4-35.0)
--- NOTE | 2024-03-25 08:45 | WOUNDNOTE ---
[facility] RN NOTE: Patient visited for stoma marking x4 quadrants. Abdomen distended, tender. Procedure and rationale explained to patient and daughter. Rectus abdominal muscle was located and care was taken to avoid creases and folds. Patient was
assessed in laying and sitting positions. Patient and daughter made aware that abdominal topography is likely to change after surgery and that surgeon will make final determination of stoma placement. Will continue to follow with patient if stoma is
created.
--- NOTE | 2024-03-25 09:01 | CON.GI ---
Consultation
-
Date/Time Consultation Requested: 03/25/2024
Date/Time Consultation Performed: 03/25/2024
Performing Provider: Moe Ramos
Reason for Consultation: colonic obstruction
Medical History
Chief Complaint / HPI
Chief Complaint: colonic obstruction
History of Present Illness:
Patient is a 78-year-old female with history of HTN, GERD, and HPL who presents with obstipation and nausea. Patient states that for past 4 days she was not able to have bowel movement and does not think she passed flatus. She also has been having
worsening nausea but denies vomiting and had associated bloating/abdominal distention. Her last colonoscopy was couple years ago at outside facility. She recently presented to ER with similar complaint on 03/21/[address] scan of abdomen
which showed significant stool burden but no bowel obstruction was noted and was discharged home. CT abdomen and pelvis with oral contrast this time showed severe dilation of small bowel and colon proximal to the obstruction located in proximal
sigmoid colon suspicious for obstructing mass versus chronic diverticulitis stricture.
Past Medical History
Past Medical History: GERD, HTN and Hypercholesterolemia
Past Surgical History: Other
Social History
Tobacco: Non-Smoker
Alcohol: None
Drug: None
Allergies / Home Medications
Allergy/AdvReac Type Severity Reaction Status Date / Time
amoxicillin [From Augmentin] Allergy Hives Verified 03/24/24 08:30
clavulanic acid Allergy Hives Verified 03/24/24 08:30
[From Augmentin]
lisinopril Allergy Hives Verified 03/24/24 08:30
Sulfa (Sulfonamide Allergy Rash Verified 03/24/24 08:30
Antibiotics)
�Medication �Instructions �Recorded
atenolol 25 mg tablet 25 mg PO BID Blood Pressure 07/28/12
hydrochlorothiazide 25 mg tablet 25 mg PO DAILY Blood Pressure 07/28/12
aspirin 81 mg chewable tablet 81 mg PO DAILY Blood Clot 08/08/22
Prevention/Tx
alprazolam 0.25 mg tablet 0.25 mg PO BIDPRN PRN anxiety 03/24/24
escitalopram oxalate 5 mg tablet 5 mg PO DAILY Mental Health/Anxiety 03/24/24
rosuvastatin 5 mg tablet 5 mg PO QPM High Cholesterol 03/24/24
Review of Systems
Vital Signs
Temp Pulse Resp BP Pulse Ox
98.4 F 64 18 147/68 93
03/25/24 07:30 03/25/24 07:30 03/25/24 07:30 03/25/24 07:30 03/25/24 07:30
Physical Exam
Exam
General: Well Developed and Well Nourished
HEENT: Normocephalic
Respiratory: Clear
Cardiac: S1/S2
GI: Soft, Non Tender and Distended
Results
WBC 10.3 10^3/uL (4.8-10.8) 03/25/24 06:17
Hgb 14.6 g/dL (12.0-16.0) 03/25/24 06:17
Hct 41.6 % (37.0-47.0) 03/25/24 06:17
MCV 81.4 fL (81.0-99.0) 03/25/24 06:17
Plt Count 383 10^3/uL (130-400) 03/25/24 06:17
Absolute Neuts (auto) 11.3 10^3/uL (1.4-6.5) H 03/24/24 09:03
PT 15.0 Sec (11.4-14.6) H 03/25/24 07:28
INR 1.20 03/25/24 07:28
APTT 31.6 Sec (23.4-35.0) 03/25/24 07:28
Sodium 139 mmol/L (135-145) 03/25/24 06:17
Potassium 3.3 mmol/L (3.5-5.1) L 03/25/24 06:17
Chloride 99 mmol/L (98-107) 03/25/24 06:17
Carbon Dioxide 32 mmol/L (22-30) H 03/25/24 06:17
BUN 43 mg/dl (7-17) H 03/25/24 06:17
Creatinine 0.9 mg/dL (0.6-1.0) 03/25/24 06:17
Calcium 8.8 mg/dl (8.4-10.2) 03/25/24 06:17
Total Bilirubin 1.3 mg/dl (0.2-1.3) 03/24/24 10:50
AST 24 U/L (14-36) 03/24/24 10:50
ALT 18 U/L (0-35) 03/24/24 10:50
Alkaline Phosphatase 63 U/L (38-126) 03/24/24 10:50
Lipase 45 U/L (23-300) 03/24/24 10:50
Diagnostic Image Results:
CT abd/pel 03/24/2024
IMPRESSION:
1. Severe small bowel and colonic distention proximal to a DISTAL COLONIC OBSTRUCTION located in the PROXIMAL SIGMOID COLON. Diagnostic possibilities are (1) an obstructing adenocarcinoma or (2) an obstructing stricture secondary to chronic
diverticular disease.
2. Severe diverticulosis in the sigmoid colon.
3. Small amount of peritoneal fluid in the pelvis.
4. Previous appendectomy and hysterectomy.
5. Small hiatal hernia.
6. Moderate number of bilateral parapelvic renal cysts.
7. 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
Prior GI Procedures:
EGD:
Colonoscopy:
Assessment / Plan
-
78-year-old female with HTN, HPL, and GERD presents with 4-day history of obstipation, abdominal distention, and worsening nausea without vomiting.
Impression / Rec:
1. Obstipation, abdominal distention, and nausea - CT images were reviewed by me. CT w/ oral contrast showed severe small bowel and colonic distention proximal to the point of obstruction which is located in proximal sigmoid colon. This
obstructing lesion is suspected to be either obstructing mass versus chronic diverticulitis stricture. Has NG tube in place. Will plan for colonoscopy with intention of colonic stent placement.
Total Time Spent with Patient (in minutes): 55
-
-
Thank you for consultation and allowing me to participate in the patient's care. Please call the distribution systems superintendent GI physician during the after hours with any questions or concerns.
--- NOTE | 2024-03-25 09:48 | W.PN.CARDCBS ---
Addendum entered and electronically signed by Farhad Moran MD 03/25/24 15:35:
Patient seen, interviewed and examined by me.
Well-appearing, no acute distress
NG tube in place
Regular rate and rhythm with normal S1 and S2, no S3 no S4. There is a grade 1/6 apical holosystolic murmur and no rubs. PMI is normally placed.
Lungs are clear to auscultation bilaterally without wheezes rales or rhonchi.
Abdomen soft nontender nondistended with normoactive bowel sounds
Extremities show trace pretibial edema bilaterally no clubbing or cyanosis.
Agree with advanced practice professionals assessment and plan as noted below.
She has type I second-degree AV block and has remained asymptomatic. There is no indication for pacing. Would avoid AV yudy blocking agents and would not be unexpected to have periods of higher degree of AV block when she bears down or Valsalvas.
An echocardiogram has been ordered for tomorrow and we will review when available. There is no cardiac contraindication for any surgery or procedures.
Original Note:
Today's Communication / Plan
-
Continue to hold AV yudy blocking agents
Colonic stent procedure performed today
Continue to monitor on telemetry
Check TSH
Consider echo tomorrow if patient stable
Impression / Plan
-
Wave Solder Offbearer: Cristiana
Assessment:
Presented 03/24/2024 with abdominal pain, nausea and constipation x 1 wk
Bowel obstruction
2nd degree AV block, Mobitz type I
Hypertension
Hyperlipidemia
Palpitations
Sinus rhythm with first-degree AV block with intermittent second-degree AV block Mobitz type I
Family history of premature CAD
Anxiety
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
3-day SP3Hy monitor completed 11/20/2020: Sinus rhythm with heart rate range 45 to 106 bpm, average heart rate 69 bpm. First-degree AV block with brief episodes of winky block noted. There was no significant pauses, 12 episodes of atrial tachycardia
with isolated PACs and rare PVCs
Echo 09/01/2008: EF 60% with mild pulmonary hypertension, RVSP 42 mmHg
Plan:
-Presented 03/24/2024 with abdominal pain, nausea and constipation x 1 wk with concerns for large bowel obstruction. Failed conservative management thus far. Underwent placement of colonic stent after being found to have stricture 03/25/2024.
-cardiology asked to evaluate for bradycardia and heart block There is no high-grade AV block or significant pauses. Prior outpatient radiation monitor reviewed from 2020 which also identified Wenckebach.
-Would continue to monitor on telemetry
-Suspect this is being precipitated by high vagal tone in the setting of bowel obstruction.
-Not reporting any lightheadedness, dizziness or syncope. Could consider repeating outpatient monitor once improved from bowel obstruction standpoint
-Would avoid AV yudy blocking agents. Patient had been maintained on atenolol 25 mg twice a day as outpatient. Continue to hold for now; blood pressure stable.
-Would consider checking echocardiogram likely tomorrow
Reviewed with patient, patient's daughter who is at bedside and Dr. Gonsalez
Progress Note - Wave Solder Offbearer
Subjective
Date of Service: March 25, 2024
Patient seen and examined. Patient laying in bed post colonic stent implant. NG tube remains in place. She denies chest pain, shortness of breath, dizziness or lightheadedness
Objective
Labs:
03/25/24 06:17
03/25/24 06:17
Labs
Hgb 14.6 g/dL (12.0-16.0) 03/25/24 06:17
Hct 41.6 % (37.0-47.0) 03/25/24 06:17
Plt Count 383 10^3/uL (130-400) 03/25/24 06:17
PT 15.0 Sec (11.4-14.6) H 03/25/24 07:28
INR 1.20 03/25/24 07:28
APTT 31.6 Sec (23.4-35.0) 03/25/24 07:28
Sodium 139 mmol/L (135-145) 03/25/24 06:17
Potassium 3.3 mmol/L (3.5-5.1) L 03/25/24 06:17
BUN 43 mg/dl (7-17) H 03/25/24 06:17
Creatinine 0.9 mg/dL (0.6-1.0) 03/25/24 06:17
Glucose 79 mg/dl (70-99) 03/25/24 06:17
Troponins
03/24/24 03/24/24
09:03 09:29
Troponin I Cancelled 0.022
Vital Signs and I&O:
Vital Signs
Temp Pulse Resp BP Pulse Ox
98.4 F 64 18 147/68 93
03/25/24 07:30 03/25/24 07:30 03/25/24 07:30 03/25/24 07:30 03/25/24 07:30
Vital Signs
Temp Pulse Resp BP Pulse Ox
98.4 F 64 18 147/68 93
03/25/24 07:30 03/25/24 07:30 03/25/24 07:30 03/25/24 07:30 03/25/24 07:30
Intake & Output
03/23/24 03/24/24 03/25/24 03/26/24
06:59 06:59 06:59 06:59
Intake Total 1690 / 1690 0 / 0
Output Total 1695 / 1695
Balance -5 / -5 0 / 0
Physical Exam
Physical Exam
GEN: No distress, awake, Ox3, lying in bed with NG tube in place
HEENT: supple, anicteric, mmm
LUNGS: CTA anteriorly, no wheezes/rales
CV: Reg, S1/S2, faint murmur at left sternal border, no rubs or gallop
ABD: soft, BS+, NT/ND
EXT: No edema, clubbing or cyanosis
NEURO: Gross non-focal
SKIN: No rash, warm, dry, pink
--- NOTE | 2024-03-25 11:40 | W.PN.CRS1 ---
Today's Communication / Plan
-
as below
Assessment/Plan
-
78-year-old female with PMH of HTN, HLD, anxiety/depression and GERD who presents with concern of constipation and nausea associated with abdominal bloating. She first presented to [facility] ED on 03/21/2024 due to significant nausea and no BMs for
4 days. At that time, a CT scan was done, but a report is not available [facility]. Per the ED note, the CT scan 'did not show bowel obstruction but did show large volume of loose liquid stools, no signs of significant inflammation', so the
patient was discharged with a bowel regiment. Over the last few days, she tried magnesium citrate and other motility agents, but did not pass any stool or much flatus. As she has had significant nausea and a couple of episodes of dry heaving, she
came back to the ED. She denies any vomiting or abdominal pain. Her last colonoscopy was >8yrs ago, likely in [place], reported as normal except for polyps and diverticulosis. In the ED, her WBC was 13.3 and a CTAP with PO contrast was done
showing dilated small bowel and proximal colon up to the point of a sigmoid obstruction, possibly a mass versus diverticular stricture. The cecum measuring 9 cm, no evidence of perforation or pneumatosis.
03/25 - successful placement of colonic stent, findings concerning for diverticular stricture, no obvious mass seen, no biopsies taken
AFVSS
WBC 10.3 from 13.3, Cr 0.9
� Large bowel obstruction due to sigmoid narrowing; s/p stent, c/f diverticular stricture, no biopsies
�Cont NGT, keep n.p.o. with IVF
�Will monitor post procedure for improvement in distention
�Had lengthy discussion with patient and patient's daughter prior to procedure; patient consented to ex lap with possible ostomy in case stent unsuccessful or develops complication post�stent placement
� Minimize narcotic pain meds, okay for Toradol PRN
�Continue DVT PPx with Lovenox
� Okay for OOB with assist, encourage IS
� Appreciate hospitalist
Subjective Data
Subjective Data
Date of Service: March 25, 2024, seen at bedside around 8 AM
No overnight events.
Pain and distention improved since placement of NGT
Denies nausea/vomiting. N.p.o. with NGT.
No flatus or BMs overnight.
Objective Data
-
Vital Signs
Temp Pulse Resp BP Pulse Ox
97.5 F 71 14 139/68 92
03/25/24 10:30 03/25/24 11:30 03/25/24 11:30 03/25/24 11:30 03/25/24 11:30
Intake & Output
03/24/24 03/25/24 03/26/24
06:59 06:59 06:59
Intake Total 1690 / 1690 0 / 0
Output Total 1695 / 1695
Balance -5 / -5 0 / 0
Intake:
Oral fluids 600 / 600 0 / 0
IV fluids (Total) 1000 / 1000
Amount instilled into GI Tube ( 90 / 90
Total)
[place] Sump 90 / 90
Output:
Gastrointestinal tube output ( 1170 / 1170
Total)
[place] Sump 200 / 200
Urine, Voided 525 / 525
Other:
Number of approximated MODERATE 1
amounts of urine
Lab Results
03/25/24 06:17
03/25/24 06:17
Physical Exam
-
General: No Acute Distress and AOx3
HEENT: Grossly Normal
Abdomen: Soft, Distended (Moderately distended, slightly improved since yesterday), Non Tender, No Guarding and No Rebound
Skin: Warm and Dry
--- NOTE | 2024-03-25 12:57 | W.PN.HOSP.TC ---
Today's Communication/Plan
-
cont mgmt as per ColorectalSx
Assessment / Plan
Assessment / Plan
78yo F with PMHx of 2nd degree AVB type 2, diverticulitis, HTN, HLD came with nausea and abd pain for 1 week. She was seen in ED [address] at that time showed constipation, but with decompressed sigmoid. At this time concern for large
bowel obstruction with transition point in the sigmoid. Found stricture 2/2 diverticulosis, had stent placed on 03/25/24
A/P:
#Large bowel obstruction
NG for decompression
NPO
Colorectal Sx eval: s/p stent on 03/25/24 - no biopsy taken as no signs of tumor
IVF
#2nd degree Mobitz type 1 AVB
Incidental
avoid AVB agents
Cardio consult
#Essential HTN
use IV meds as needed to control BP
#HLD
#Anxiety d/o
cont meds when able to take PO
#Leukocytosis
#Thrombocytosis
Reactive
no inducation for Abx
follow CBC
#Diverticulosis
#Small hiatal hernia
#DJD
follow up with PCP upon d/c
DVT ppx hep
DNR/DNI
I ahve spent at least 37min reviewing chart, test results and direct aptient care
Anticipated Discharge: 24 - 48 hours
Subjective/Interval History
-
Date of Service: March 25, 2024
Objective Data
-
Labs:
Laboratory Results
03/25/24 03/25/24
06:17 07:28
WBC 10.3
Hgb 14.6
Hct 41.6
Plt Count 383
PT 15.0 H
INR 1.20
APTT 31.6
Sodium 139
Potassium 3.3 L
Chloride 99
Carbon Dioxide 32 H
BUN 43 H
Creatinine 0.9
Glucose 79
Calcium 8.8
Vital Signs:
Vital Signs
Temp Pulse Resp BP Pulse Ox
97.6 F 71 14 139/68 98
03/25/24 11:30 03/25/24 11:30 03/25/24 11:30 03/25/24 11:30 03/25/24 11:30
I&O
03/24/24 03/25/24 03/26/24
06:59 06:59 06:59
Intake Total 1690 / 1690 0 / 0
Output Total 1695 / 1695
Balance -5 / -5 0 / 0
Review of Systems
-
History Source: Patient
All other systems: Reviewed and negative
Physical Exam
-
General: Comfortable
Respiratory: Clear to Auscultation
Cardiac: Regular Rhythm
GI: Soft, Nontender and Nondistended
Neuro: Awake, Alert, Oriented and AO x 3
[2024-03-25] MEDS: LOVENOX 40 MG SC (17:26)
[2024-03-25 17:32] LABS: TSH Reflex To Free T4 0.83 uIU/ml (0.47-4.68)
--- NOTE | 2024-03-25 20:49 | VATNOTE ---
unsuccessful IV restart x2; another VAT RN to attempt.
--- NOTE | 2024-03-25 20:50 | VATNOTE ---
left arm IV removed; noted entire left arm swollen compared to right arm. +2 - 3 edema; elevated left arm on folded pillow. No pain per pt.
[2024-03-25] MEDS: ATIVAN 0.5 MG IV (22:28)
[2024-03-25] MEDS: NSS (PRESERVATIVE FREE) 0.25 ML IV (22:28)
[2024-03-26 03:10] VITALS: BP 150/64
[2024-03-26 05:48] LABS: % Basophils 0.1 % (0-2); % Immature Granulocytes 0.5 % (0-0.5); % Lymphocytes 6.7 % (20.5-51.1); % Monocytes 9.2 % (1.7-9.3); % Neutrophils 83.5 % (42.2-75.2); Absolute Immature Granulocytes 0.1 10^3/uL (0-0.05); Absolute Monocytes 1.4 10^3/uL (0.1-0.6); Absolute Neutrophils 12.3 10^3/uL (1.4-6.5); Hematocrit 40.3 % (37.0-47.0); Hemoglobin 13.8 g/dL (12.0-16.0); Mean Corp Hgb Conc. 34.2 g/dL (33.0-37.0); Mean Corpuscular Hgb 28.6 pg (27.0-31.0); Mean Corpuscular Volume 83.4 fL (81.0-99.0); Mean Platelet Volume 10.1 fL (7.4-10.4); Nucleated Red Blood Cells % 0 %; Platelet Count 345 10^3/uL (130-400); Red Blood Cell Count 4.83 10^6/uL (4.20-5.40); Red Cell Dist. Width 13.6 % (11.5-14.5); White Blood Cell Count 14.7 10^3/uL (4.8-10.8)
[2024-03-26 06:14] LABS: Blood Urea Nitrogen 31 mg/dl (7-17); Calcium 8.2 mg/dl (8.4-10.2); Carbon Dioxide 24 mmol/L (22-30); Chloride 104 mmol/L (98-107); Estimated Creatinine Clearance 74 ml/min; Glucose 82 mg/dl (70-99); Magnesium 2.8 mg/dl (1.6-2.3); Potassium 3.6 mmol/L (3.5-5.1); Sodium 141 mmol/L (135-145); eGFR > 60.00
[2024-03-26 07:10] LABS: Prealbumin (Transthyretin) 14.3 mg/dl (17.6-36.0)
[2024-03-26 07:15] VITALS: BP 164/61
--- NOTE | 2024-03-26 09:00 | W.PN.CRS1 ---
Today's Communication / Plan
-
clears
abd xrays
Assessment/Plan
-
03/25 - successful placement of colonic stent, findings concerning for diverticular stricture, no obvious mass seen, no biopsies taken
AFVSS
WBC 14.7 from 10.3
� Large bowel obstruction due to sigmoid narrowing; s/p stent, c/f diverticular stricture, no biopsies
� Advance diet to clears
� Abdominal xrays this AM
� Minimize narcotic pain meds, okay for Toradol PRN
� Continue DVT PPx with Lovenox
� Okay for OOB, PT evaluated on 03/25
� Appreciate hospitalist
Subjective Data
Subjective Data
Date of Service: March 26, 2024
Patient states she feels weak because she has not been eating. She has no nausea or vomiting. She is thirsty. She is not sure if she has had any flatus. She has had a little bit of stools.
Objective Data
-
Vital Signs
Temp Pulse Resp BP Pulse Ox
98.5 F 74 18 164/61 94
03/26/24 07:15 03/26/24 07:15 03/26/24 07:15 03/26/24 07:15 03/26/24 07:15
Intake & Output
03/25/24 03/26/24 03/27/24
06:59 06:59 06:59
Intake Total 1690 / 1690 1060 / 1060
Output Total 1695 / 1695 0 / 0
Balance -5 / -5 1060 / 1060
Intake:
Oral fluids 600 / 600 0 / 0
IV fluids (Total) 1000 / 1000 1000 / 1000
Amount instilled into GI Tube ( 90 / 90 60 / 60
Total)
[place] Sump 90 / 90 60 / 60
Output:
Gastrointestinal tube output ( 1170 / 1170 0 / 0
Total)
[place] Sump 200 / 200 0 / 0
Urine, Voided 525 / 525
Other:
Number of approximated MODERATE 2
amounts of urine
Number of unmeasured liquid
stools
Rectum 4
Lab Results
03/26/24 05:13
03/26/24 05:13
Physical Exam
-
General: No Acute Distress and AOx3
Abdomen: Soft, Distended (Improving) and Non Tender
Skin: Warm and Dry
[2024-03-26 11:45] VITALS: BP 166/71
--- NOTE | 2024-03-26 12:25 | CM ---
CM reviewed chart and pt with nursing
TT/Dr Gonsalez requesting PT order for eval
Pt may have VN or SNF needs per nursing
Discharge Disposition- home likely with services, watch for higher needs
--- NOTE | 2024-03-26 12:51 | W.PN.HOSP.TC ---
Today's Communication/Plan
-
mgmt as per Colorectal Sx
Assessment / Plan
Assessment / Plan
78yo F with PMHx of 2nd degree AVB type 2, diverticulitis, HTN, HLD came with nausea and abd pain for 1 week. She was seen in ED [address] at that time showed constipation, but with decompressed sigmoid. At this time concern for large
bowel obstruction with transition point in the sigmoid. Found stricture 2/2 diverticulosis, had stent placed on 03/25/24
A/P:
#Large bowel obstruction
NG for decompression
NPO
Colorectal Sx eval: s/p stent on 03/25/24 - no biopsy taken as no signs of tumor. Eventual surgical intervention planned in 1-2 weeks or sooner of condition deteriorate. Pharmaceutical Scientist clearance needed
IVF
#2nd degree Mobitz type 1 AVB
Incidental
avoid AVB agents
Cardio consult
#Essential HTN
use IV meds as needed to control BP
#HLD
#Anxiety d/o
cont meds when able to take PO
#Leukocytosis
#Thrombocytosis
Reactive
no inducation for Abx
follow CBC
#Diverticulosis
#Small hiatal hernia
#DJD
follow up with PCP upon d/c
DVT ppx hep
DNR/DNI
I ahve spent at least 37min reviewing chart, test results and direct aptient care
Anticipated Discharge: > 48 hours
Subjective/Interval History
-
Date of Service: March 26, 2024
Objective Data
-
Labs:
Laboratory Results
03/26/24
05:13
WBC 14.7 H
Hgb 13.8
Hct 40.3
Plt Count 345
Sodium 141
Potassium 3.6
Chloride 104
Carbon Dioxide 24
BUN 31 H
Creatinine 0.7
Glucose 82
Calcium 8.2 L
Vital Signs:
Vital Signs
Temp Pulse Resp BP Pulse Ox
98.6 F 77 16 166/71 96
03/26/24 11:45 03/26/24 11:45 03/26/24 11:45 03/26/24 11:45 03/26/24 11:45
I&O
03/25/24 03/26/24 03/27/24
06:59 06:59 06:59
Intake Total 1690 / 1690 1060 / 1060
Output Total 1695 / 1695 0 / 0
Balance -5 / -5 1060 / 1060
Review of Systems
-
History Source: Patient
All other systems: Reviewed and negative
Abdomen/GI: Reports Abdominal Pain and Nausea
Physical Exam
-
General: Appears in Distress and Pain
HEENT: Normocephalic
Respiratory: Clear to Auscultation
Cardiac: Regular Rhythm
GI: Soft, Nontender and Nondistended
Rectal: Brown
Musculoskeletal: No Clubbing, No Cyanosis and No Edema
Skin: Warm
Neuro: Awake
Psych: Anxious
--- NOTE | 2024-03-26 13:17 | W.PN.CARDCBS ---
Addendum entered and electronically signed by Scott Cruz MD 03/26/24 14:38:
I saw and examined the patient.
The SUPERINTENDENT RENTING MANAGING or PA's note was reviewed and I agree with the note.
Comment: General: Well developed, well nourished in NAD.
Neck: Supple, no JVD, HJR, carotids +2 B/L, no bruits bilaterally.
Heart: Non displaced PMI, RRR, no murmurs, No S3, S4, no rubs.
Lungs: Clear to auscultation bilaterally, no wheeze, rhonchi, rubs bilaterally,
normal expiratory phase.
Extremities: No clubbing, cyanosis or edema bilaterally.
Neuro: Grossly nonfocal, awake, alert and oriented x3.
Stable cardiology status. 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 Continue to hold atenolol
Original Note:
Today's Communication / Plan
-
Continue to hold outpatient dose of atenolol
Patient is at moderate risk for surgery, no cardiac contraindication for surgery. Recommend telemetry monitoring perioperatively.
Impression / Plan
-
PCP: Dr. Cooper
Sharepoint Trainer: Cristiana
Assessment:
Presented 03/24/2024 with abdominal pain, nausea and constipation x 1 wk
Bowel obstruction
2nd degree AV block, Mobitz type I
HTN
Hyperlipidemia
Palpitations
Sinus rhythm with first-degree AV block with intermittent second-degree AV block Mobitz type I
Family history of premature CAD
Anxiety
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
3-day Bardy monitor completed 11/20/2020: Sinus rhythm with heart rate range 45 to 106 bpm, average heart rate 69 bpm. First-degree AV block with brief episodes of winky block noted. There was no significant pauses, 12 episodes of atrial tachycardia
with isolated PACs and rare PVCs
Echo 09/01/08: EF 60% with mild pulmonary hypertension, RVSP 42 mmHg
Echo 03/26/24: EF 65 to 70%, normal RV size and function, mild MR, mild TR
Plan:
-Colorectal surgery service note reviewed and NGT to be removed 03/26/24. Patient being evaluated for an elective colectomy in 2-4 weeks
-From a cardiac standpoint the patient had normal LV function on echo without severe valve disease. No unstable or resting symptoms. Patient can proceed with procedures or surgeries at moderate risk and would recommend telemetry monitoring
perioperatively.
-Overnight tele reviewed and patient with sinus bradycardia and 1st degree AV block and Wenckebach rarely. Outpatient dose of atenolol 25 mg BID has been held since admission. No indication for pacing.
HPI: 78-year-old woman past medical history as below who presents with worsening constipation, abdominal distention and nausea. Cardiology is consulted for bradycardia and second-degree AV block. Patient evaluated in the ED 3 days ago and was
diagnosed with constipation. Now returns with worsening symptoms and CT of the abdomen and pelvis revealed bowel obstruction for which GI and surgery are discussing potential stenting +/- ex lap. NG tube placed in the ER with greater than 1 L of
gastric contents suctioned, patient tells me with this she has had some improvement in her symptoms. In regards to her heart rate, we discussed that prior outpatient quality assurance monitor chassis revealed second-degree AV block Mobitz type I in 2020. Telemetry
here also showing Mobitz, no high-grade AV block or significant pauses. Patient is not reporting any lightheadedness, dizziness or syncope to me. Her chest/epigastric discomfort seems to be related to her GI symptoms and is improving with NG tube
placement and decompression.
Progress Note - Sharepoint Trainer
Subjective
Date of Service: March 26, 2024
Tired, no lightheadedness
Objective
Labs:
03/26/24 05:13
03/26/24 05:13
Labs
Hgb 13.8 g/dL (12.0-16.0) 03/26/24 05:13
Hct 40.3 % (37.0-47.0) 03/26/24 05:13
Plt Count 345 10^3/uL (130-400) 03/26/24 05:13
PT 15.0 Sec (11.4-14.6) H 03/25/24 07:28
INR 1.20 03/25/24 07:28
APTT 31.6 Sec (23.4-35.0) 03/25/24 07:28
Sodium 141 mmol/L (135-145) 03/26/24 05:13
Potassium 3.6 mmol/L (3.5-5.1) 03/26/24 05:13
BUN 31 mg/dl (7-17) H 03/26/24 05:13
Creatinine 0.7 mg/dL (0.6-1.0) 03/26/24 05:13
Glucose 82 mg/dl (70-99) 03/26/24 05:13
Troponins
03/24/24 03/24/24
09:03 09:29
Troponin I Cancelled 0.022
Vital Signs and I&O:
Vital Signs
Temp Pulse Resp BP Pulse Ox
98.6 F 77 16 166/71 96
03/26/24 11:45 03/26/24 11:45 03/26/24 11:45 03/26/24 11:45 03/26/24 11:45
Vital Signs
Temp Pulse Resp BP Pulse Ox
98.6 F 77 16 166/71 96
03/26/24 11:45 03/26/24 11:45 03/26/24 11:45 03/26/24 11:45 03/26/24 11:45
Intake & Output
03/24/24 03/25/24 03/26/24 03/27/24
06:59 06:59 06:59 06:59
Intake Total 1690 / 1690 1060 / 1060
Output Total 1695 / 1695 0 / 0
Balance -5 / -5 1060 / 1060
Physical Exam
Physical Exam
GEN: AAOx3
HEENT: mmm
LUNGS: No audible wheeze
CV: SR on tele
ABD: +NGT
EXT: No edema
NEURO: Gross non-focal
SKIN: No rash
[2024-03-26 15:55] VITALS: BP 171/75
--- NOTE | 2024-03-26 16:12 | W.PN.UPDATE ---
Addendum entered and electronically signed by Michael Leiva MD 03/26/24 17:06:
Spoke with patients daughter and updated her on the above
Original Note:
Update Note
Progress Note Update
Patient reevaluated today due to concerns for abdominal discomfort. Repeat CT from today also reviewed. On exam at the bedside the patient has mild abdominal tenderness without guarding rebound or peritoneal signs. She is moderately distended.
She feels about the same as she did this morning. She admits to passing small pebble-like stools intermittently. Denies flatus. CT scan reveals the stent to be in reasonable position. There is no free air or evidence for perforation. There is
no evidence for stent migration. The rectal contrast is bright in the rectum and dilute proximal to the stent. Is unclear whether the proximal contrast is her prior oral contrast or the new rectal contrast. I communicated with Dr. Ramos of GI
regarding his thoughts. He recommended oral laxatives to see if she responds. Magnesium citrate ordered.
[2024-03-26] MEDS: CITROMA 300 ML PO (16:41)
[2024-03-26] MEDS: LOVENOX 40 MG SC (16:41)
[2024-03-26] MEDS: ATIVAN 0.5 MG IV (16:48)
--- NOTE | 2024-03-26 17:55 | W.PN.GI.CBS2 ---
Today's Communication / Plan
-
mg citrate o/n, re-eval tomorrow for possible repeat flx sig
Assessment / Plan
-
78-year-old female with HTN, HPL, and GERD presents with 4-day history of obstipation, abdominal distention, and worsening nausea without vomiting.
Impression / Rec:
1. Obstipation, abdominal distention, and nausea - CT images were reviewed by me. CT w/ oral contrast showed severe small bowel and colonic distention proximal to the point of obstruction which is located in proximal sigmoid colon. This
obstructing lesion is suspected to be either obstructing mass versus chronic diverticulitis stricture.
Colonic stent was placed yesterday, had small BM x 2 today but denies large BM. Had repeat CT which shows mild improvement but remains distended concerning for malfunction/occlusion of stent. CT was reviewed by me - the position looks good, with
prox end of stent well into the dilated sigmoid colon traversing the stenosis. If no significant BM by tomorrow, will repeat flx sig for re-evaluation. Trial of gentle laxative o/n. Case was d/w Dr. Galdamez.
Total Time Spent with Patient (in minutes): 35
Subjective
Subjective
Date of Service: March 26, 2024
Had small BMs x 2 today
Objective
Data Reviewed
Laboratory Data:
Laboratory Results
03/26/24 05:13
03/26/24 05:13
Laboratory Results
PT 15.0 Sec (11.4-14.6) H 03/25/24 07:28
INR 1.20 03/25/24 07:28
APTT 31.6 Sec (23.4-35.0) 03/25/24 07:28
Phosphorus 3.0 mg/dl (2.5-4.5) 03/26/24 05:13
Magnesium 2.8 mg/dl (1.6-2.3) H 03/26/24 05:13
Total Bilirubin 1.3 mg/dl (0.2-1.3) 03/24/24 10:50
AST 24 U/L (14-36) 03/24/24 10:50
ALT 18 U/L (0-35) 03/24/24 10:50
Alkaline Phosphatase 63 U/L (38-126) 03/24/24 10:50
Lipase 45 U/L (23-300) 03/24/24 10:50
Vital Signs and I&O:
Vital Signs
Temp Pulse Resp BP Pulse Ox
97.9 F 97 20 171/75 93
03/26/24 15:55 03/26/24 15:55 03/26/24 15:55 03/26/24 15:55 03/26/24 15:55
I&O
03/25/24 03/26/24 03/27/24
06:59 06:59 06:59
Intake Total 1690 / 1690 1060 / 1060
Output Total 1695 / 1695 0 / 0
Balance -5 / -5 1060 / 1060
[2024-03-26 19:30] VITALS: BP 133/70
[2024-03-26 23:35] VITALS: BP 120/62
[2024-03-27] VITALS (34 sets, daily range): BP systolic 94–162; BP diastolic 54–103; BMI 29.0; BMI 31.0
[2024-03-27] MEDS: ZOFRAN 4 MG IV (03:58)
[2024-03-27 06:13] LABS: % Basophils 0.4 % (0-2); % Eosinophils 0.4 % (0-6); % Immature Granulocytes 0.5 % (0-0.5); % Lymphocytes 4.6 % (20.5-51.1); % Monocytes 8.7 % (1.7-9.3); % Neutrophils 85.4 % (42.2-75.2); Absolute Basophils 0.1 10^3/uL (0-0.2); Absolute Eosinophils 0.1 10^3/uL (0-0.7); Absolute Immature Granulocytes 0.1 10^3/uL (0-0.05); Absolute Lymphocytes 0.8 10^3/uL (1.2-3.4); Absolute Monocytes 1.5 10^3/uL (0.1-0.6); Absolute Neutrophils 14.2 10^3/uL (1.4-6.5); Hematocrit 43.9 % (37.0-47.0); Mean Corp Hgb Conc. 34.2 g/dL (33.0-37.0); Mean Corpuscular Hgb 28.8 pg (27.0-31.0); Mean Corpuscular Volume 84.4 fL (81.0-99.0); Mean Platelet Volume 10.1 fL (7.4-10.4); Nucleated Red Blood Cells % 0 %; Platelet Count 369 10^3/uL (130-400); Red Cell Dist. Width 13.6 % (11.5-14.5); White Blood Cell Count 16.6 10^3/uL (4.8-10.8)
[2024-03-27 06:31] LABS: ALT (SGPT) 18 U/L (0-35); AST (SGOT) 30 U/L (14-36); Albumin 3.4 g/dl (3.5-5.0); Alkaline Phosphatase 76 U/L (38-126); Blood Urea Nitrogen 29 mg/dl (7-17); Calcium 8.4 mg/dl (8.4-10.2); Carbon Dioxide 28 mmol/L (22-30); Chloride 99 mmol/L (98-107); Estimated Creatinine Clearance 74 ml/min; Glucose 154 mg/dl (70-99); Potassium 3.3 mmol/L (3.5-5.1); Sodium 140 mmol/L (135-145); Total Protein 5.8 g/dl (6.3-8.2); eGFR > 60.00
--- NOTE | 2024-03-27 07:09 | PTCARENOTE ---
Verbal order received from Dr. Michael Leiva and read back for new order of Lactated Ringers at 125 ml/hr continuously.
[2024-03-27] MEDS: LR 1000 IV ×2 (07:21→15:17)
--- NOTE | 2024-03-27 08:52 | W.PN.HOSP.TC ---
Today's Communication/Plan
-
for GI and ColorectaSx mgmt
replete potassium
reinsertion of NG tube noted
Assessment / Plan
Assessment / Plan
78yo F with PMHx of 2nd degree AVB type 2, diverticulitis, HTN, HLD came with nausea and abd pain for 1 week. She was seen in ED [address] at that time showed constipation, but with decompressed sigmoid. At this time concern for large
bowel obstruction with transition point in the sigmoid. Found stricture 2/2 diverticulosis, had stent placed on 03/25/24
A/P:
#Large bowel obstruction
NG for decompression
NPO
Colorectal Sx eval: s/p stent by GI on 03/25/24 - no biopsy taken as no signs of tumor. Patient has no significant resolution - to reposition stent on 03/27/24, possible OR
IVF
#2nd degree Mobitz type 1 AVB
Incidental
avoid AVB agents
Cardio consult
#Essential HTN
use IV meds as needed to control BP
#HLD
#Anxiety d/o
cont meds when able to take PO
#Leukocytosis
#Thrombocytosis
Reactive
no indication for Abx
follow CBC
#Diverticulosis
#Small hiatal hernia
#DJD
follow up with PCP upon d/c
#Hypokalemia
replete
DVT ppx hep
DNR/DNI
I have spent at least 37min reviewing chart, test results and direct aptient care
Anticipated Discharge: > 48 hours
Subjective/Interval History
-
Date of Service: March 27, 2024
Objective Data
-
Labs:
Laboratory Results
03/27/24
05:37
WBC 16.6 H
Hgb 15.0
Hct 43.9
Plt Count 369
Sodium 140
Potassium 3.3 L
Chloride 99
Carbon Dioxide 28
BUN 29 H
Creatinine 0.7
Glucose 154 H
Calcium 8.4
Total Bilirubin 1.0
AST 30
ALT 18
Alkaline Phosphatase 76
Vital Signs:
Vital Signs
Temp Pulse Resp BP Pulse Ox
99 F 87 18 161/78 93
03/27/24 07:41 03/27/24 07:41 03/27/24 07:41 03/27/24 07:41 03/27/24 07:41
I&O
03/26/24 03/27/24 03/28/24
06:59 06:59 06:59
Intake Total 1060 / 1060 700 / 700
Output Total 0 / 0
Balance 1060 / 1060 700 / 700
Review of Systems
-
History Source: Patient
All other systems: Reviewed and negative
Abdomen/GI: Reports Abdominal Pain
Psych: Reports Anxious
Physical Exam
-
General: Appears in Distress
HEENT: Moist Mucous Membranes
Cardiac: Regular Rhythm
GI: Tender and Distended
Musculoskeletal: No Clubbing, No Cyanosis and No Edema
Skin: Warm
Neuro: Awake, Alert, Oriented and AO x 3
Psych: Anxious
[2024-03-27] MEDS: ATIVAN 0.5 MG IV (09:00)
[2024-03-27] MEDS: KCL 270 MEQ IV (09:50)
--- NOTE | 2024-03-27 10:03 | W.PN.CRS1 ---
Today's Communication / Plan
-
npo
ngt
GI to eval stent
Assessment/Plan
-
03/25 - successful placement of colonic stent, findings concerning for diverticular stricture, no obvious mass seen, no biopsies taken
AFVSS
WBC 14.7 from 10.3
� Large bowel obstruction due to sigmoid narrowing; s/p stent, c/f diverticular stricture, no biopsies
- GI contacted this AM given distention, enema given, will attempt to eval stent
� NPO, NGT ordered given distention/vomiting
� Abdominal xray to confirm NGT placement
� Minimize narcotic pain meds, okay for Toradol PRN
� Continue DVT PPx with Lovenox
� Okay for OOB, PT evaluated on 03/25
� Appreciate hospitalist
- Nutrition consulted and labs ordered, will need to consider TPN if continues with NGT
Subjective Data
Subjective Data
Date of Service: March 27, 2024
Patient states she is in that much belly pain. However, she did vomit twice, once overnight and once this morning. She has more distention today.
Objective Data
-
Vital Signs
Temp Pulse Resp BP Pulse Ox
99 F 87 18 161/78 93
03/27/24 07:41 03/27/24 07:41 03/27/24 07:41 03/27/24 07:41 03/27/24 07:41
Intake & Output
03/26/24 03/27/24 03/28/24
06:59 06:59 06:59
Intake Total 1060 / 1060 700 / 700
Output Total 0 / 0
Balance 1060 / 1060 700 / 700
Intake:
Oral fluids 0 / 0 700 / 700
IV fluids (Total) 1000 / 1000
Amount instilled into GI Tube ( 60 / 60
Total)
[place] Sump 60 / 60
Output:
Gastrointestinal tube output ( 0 / 0
Total)
[place] Sump 0 / 0
Other:
Number of approximated SMALL 1
amounts of urine
Number of approximated MODERATE 2 3
amounts of urine
Number of immeasurable emeses? 1
Number of unmeasured liquid
stools
Rectum 4
Lab Results
03/27/24 05:37
03/27/24 05:37
Physical Exam
-
General: No Acute Distress and AOx3
Abdomen: Distended and Tender (Upper quadrants)
Skin: Warm
--- NOTE | 2024-03-27 10:54 | W.PN.UPDATE ---
Update Note
Progress Note Update
Pt for colon with stent evaluation-- NGT placed right nare without difficulty with large volume of feculent material drainage placed at 60cm and confirmed with insufflation. .
--- NOTE | 2024-03-27 13:10 | SUR.PHASEI ---
Received pt from GI lab, HR 90 to low 100's in AFIB which is new. Dr. Fischer reached out and no new orders at this time. Will continue to monitor
[2024-03-27 13:13] LABS: Prealbumin (Transthyretin) 10.6 mg/dl (17.6-36.0)
--- NOTE | 2024-03-27 14:16 | W.PN.UPDATE ---
Addendum entered and electronically signed by Will Gonsalez MD 03/27/24 14:30:
Discussed with daughter in details. Hx of hives to penicillins, not clear about cephalosporin, however in agreement to try and closely monitor as cefepime is most favorable side evvect provide. Started Vanco/Cefepime
Original Note:
Update Note
Progress Note Update
Hypoxia s/p NG tube placement, pending OR at 1800 - close monitoring in IMU, chest XR. If signs of pneumonia or new fever - will start broad spectrum Abx
--- NOTE | 2024-03-27 14:17 | PTCARENOTE ---
1350 Spoke with anesthesia/hospitalist and agreed patient should be transferred to a higher level of care. Patient scheduled for OR today. Patient remains tachycardic, now febrile, saturation 90-92% on 5L NC. Remains comfortable with no C/O.
--- NOTE | 2024-03-27 14:54 | PHA.VAN.IN ---
Assessment
- Assessment
Renal Function: Appears similar to baseline
Concomitant Antimicrobials: cefepime
AUC Dosing Plan
- Dosing Variables
Dosing Weight (kg): 94
Dosing CrCl (ml/min): 74
Vd coefficient (L/kg): 0.7
- Empiric Dosing
Initial / Loading Dose: 2000mg - administration pending
Maintenance Regimen: Vanc 1000mg Q12H starting 03/28 600
Estimated AUC (mcg*h/mL): 477
Estimated Peak (mcg*h/mL): 27.8
Estimated Trough (mcg/ml): 13.5
Estimated Half Life (H): 10.5
- Monitoring
No levels ordered at this time: consider levels in next few days
MRSA Screen: Ordered per protocol
Pharmacokinetics Vancomycin I
- -
Patient Age: 78
Patient Sex: Female
Vancomycin Day #: 1
Indication: Pulmonary/Respiratory
Requesting Provider: Dr. Gonsalez
Pertinent Antimicrobial Allergies:
amoxicillin/clavulanic acid - hives
sulfonamide antibiotics - rash
Height / Weight:
Height 5 ft 7 in
Actual Weight 83.915 kg
- Vital Signs / Lab Results
Temp Pulse Resp BP Pulse Ox
99.6 F 91 26 105/64 92
03/27/24 13:50 03/27/24 14:30 03/27/24 14:30 03/27/24 14:30 03/27/24 14:30
Lab Results - Hematology
03/25/24 03/26/24 03/27/24
06:17 05:13 05:37
WBC 10.3 14.7 H 16.6 H
Lab Results - Chemistry
03/25/24 03/26/24 03/27/24
06:17 05:13 05:37
BUN 43 H 31 H 29 H
Creatinine 0.9 0.7 0.7
Estimated Creat Clear 57 74 74
Albumin 3.4 L
--- NOTE | 2024-03-27 15:44 | W.PN.CARDCBS ---
Addendum entered and electronically signed by Jose L Browning DO 03/27/24 20:25:
I saw and examined the patient AM 03/27/2024.
The [employer]osaic Worker's note was reviewed and I agree with the note.
Comment:
General: No acute distress, AAOX3
Neck: Negative JVD
Heart: Regular, Negative S3 positive S1/S2, Negative S4, No murmur
Lungs: CTA b/l, negative wheezes/rales/rhonchi
Abd: Positive BS, NT/ND, neg rebound/rigidity/guarding
Ext: Negative cyanosis/clubbing/edema
Neuro: nonfocal
Plan:
Transition to IV Lopressor
Atrial tachycardia today. Monitor HR with prior second degree AV block type I/bradycardia
Cont tele
Echo with preserved EF
Pt remains compensated for GI procedure/surgery from cardiac standpoint.
Discussed with son at bedside.
Original Note:
Today's Communication / Plan
-
found to have ischemic bowel - to OR today for colectomy
-IV Metoprolol for rate control of AT.
-check 12 lead EKG if recurrent AT.
Impression / Plan
-
PCP: Dr. Cooper
Day Treatment Clinician/Art Therapist: Cristiana
Assessment:
Presented 03/24/2024 with abdominal pain, nausea and constipation x 1 wk
worsening abd distension 03/27/24- NGT placed and had flex sig showing possible ischemic bowel - going to OR later today for colectomy (03/27/24).
Atrial tachycardia
2nd degree AV block, Mobitz type I
HTN
Hyperlipidemia
Palpitations
Sinus rhythm with first-degree AV block with intermittent second-degree AV block Mobitz type I
Family history of premature CAD
Anxiety
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
3-day Bardy monitor completed 11/20/2020: Sinus rhythm with heart rate range 45 to 106 bpm, average heart rate 69 bpm. First-degree AV block with brief episodes of winky block noted. There was no significant pauses, 12 episodes of atrial tachycardia
with isolated PACs and rare PVCs
Echo 09/01/08: EF 60% with mild pulmonary hypertension, RVSP 42 mmHg
Echo 03/26/24: EF 65 to 70%, normal RV size and function, mild MR, mild TR
EKG 03/27/24 reviewed: ST w/ first degree AVB
Plan:
-IV Metoprolol for rate control of ST/AT for HRs >100 bpm - order placed.
-continue telemetry
-going for colectomy tonight after worsening abdominal distention today with flex sig showing possible ischemic bowel.
-From a cardiac standpoint the patient had normal LV function on echo without severe valve disease. No unstable or resting symptoms. Patient can proceed with procedures or surgeries at moderate risk and would recommend telemetry monitoring
perioperatively.
-Overnight tele reviewed and patient with sinus rhythm/sinus bradycardia and 1st degree AV block and Wenckebach rarely. Started having runs atrial tachycardia this morning around 0840. Outpatient dose of atenolol 25 mg BID has been held since
admission. No indication for pacing. Ordering IV Metoprolol rate control of AT.
HPI: 78-year-old woman past medical history as below who presents with worsening constipation, abdominal distention and nausea. Cardiology is consulted for bradycardia and second-degree AV block. Patient evaluated in the ED 3 days ago and was
diagnosed with constipation. Now returns with worsening symptoms and CT of the abdomen and pelvis revealed bowel obstruction for which GI and surgery are discussing potential stenting +/- ex lap. NG tube placed in the ER with greater than 1 L of
gastric contents suctioned, patient tells me with this she has had some improvement in her symptoms. In regards to her heart rate, we discussed that prior outpatient maintenance machinist revealed second-degree AV block Mobitz type I in 2020. Telemetry
here also showing Mobitz, no high-grade AV block or significant pauses. Patient is not reporting any lightheadedness, dizziness or syncope to me. Her chest/epigastric discomfort seems to be related to her GI symptoms and is improving with NG tube
placement and decompression.
Progress Note - Day Treatment Clinician/Art Therapist
Subjective
Date of Service: March 27, 2024
Objective
Labs:
03/27/24 05:37
03/27/24 05:37
Labs
Hgb 15.0 g/dL (12.0-16.0) 03/27/24 05:37
Hct 43.9 % (37.0-47.0) 03/27/24 05:37
Plt Count 369 10^3/uL (130-400) 03/27/24 05:37
PT 15.0 Sec (11.4-14.6) H 03/25/24 07:28
INR 1.20 03/25/24 07:28
APTT 31.6 Sec (23.4-35.0) 03/25/24 07:28
Sodium 140 mmol/L (135-145) 03/27/24 05:37
Potassium 3.3 mmol/L (3.5-5.1) L 03/27/24 05:37
BUN 29 mg/dl (7-17) H 03/27/24 05:37
Creatinine 0.7 mg/dL (0.6-1.0) 03/27/24 05:37
Glucose 154 mg/dl (70-99) H 03/27/24 05:37
Vital Signs and I&O:
Vital Signs
Temp Pulse Resp BP Pulse Ox
99.6 F 99 40 102/59 94
03/27/24 13:50 03/27/24 15:30 03/27/24 15:30 03/27/24 15:30 03/27/24 15:30
Vital Signs
Temp Pulse Resp BP Pulse Ox
99.6 F 99 40 102/59 94
03/27/24 13:50 03/27/24 15:30 03/27/24 15:30 03/27/24 15:30 03/27/24 15:30
Intake & Output
03/25/24 03/26/24 03/27/24 03/28/24
06:59 06:59 06:59 06:59
Intake Total 1690 / 1690 1060 / 1060 700 / 700 200 / 200
Output Total 1695 / 1695 0 / 0 0 / 0
Balance -5 / -5 1060 / 1060 700 / 700 200 / 200
--- NOTE | 2024-03-27 15:47 | W.PN.UPDATE ---
Update Note
Progress Note Update
Spoke with daughter and patient regarding results of the flexible sigmoidoscopy; specifically, the stent was patent and was easily traversed; proximal to the stent, the mucosa appeared healthy and was primarily dilated with gas; distal to the
opening of the distal limb of the stent, the mucosa appeared ulcerated with pale/estevez discoloration, concerning for possible ischemic colitis; discussed at length over the phone with Dr. Ramos and Dr. Galdamez; due to the concern for possible ischemic
colitis in the setting of sigmoid stricture, the decision was made to not place another stent and to recommend surgery; this was discussed at length over the phone with her daughter, Otilia, who agreed to move forward with surgery; I explained the
intended surgery to include an exploratory laparotomy, evaluation of her colon with plan for resection of any unhealthy bowel and likely creation of colostomy; very rarely in this situation, the colon is not dilated and healthy enough to perform an
anastomosis; I reiterated the risks benefits and alternatives as they were discussed when the patient was initially consented on 03/25/2024; I met the patient in the recovery room; she was still groggy but answers questions appropriately; I explained
the above and the patient agreed to move forward with surgery;
--- NOTE | 2024-03-27 16:17 | CM ---
Pt to go OR .
Will need PT OT for dc planning.
[2024-03-27] MEDS: VANCOCIN 540 MG IV (16:47)
[2024-03-27] MEDS: MAXIPIME 2000 MG IV ×2 (16:55→23:08)
[2024-03-27] MEDS: STERILE WATER FOR INJECTION 10 ML IV ×2 (16:55→23:08)
--- NOTE | 2024-03-27 17:39 | PTCARENOTE ---
Verbal report received from ALISON Vaughan. Pt currently in OR
--- NOTE | 2024-03-27 17:59 | PTCARENOTE ---
Addendum Documentation from 1310 thru 1745 post flex sig was reflected in the Exp lap/Davila procedure. See PACU worklist. MIS made aware.
--- NOTE | 2024-03-27 20:56 | W.IMMPOSTOP ---
Surgical Immed Post Op Note
-
Primary Surgeon: Michael Leiva MD
Assisting Surgeon: Farhad Galdamez MD, Pradeep Clarke METALLURGICAL TESTER
Pre-op Diagnosis: Sigmoid colon stricture, large bowel obstruction
Post-op Diagnosis: Sigmoid colon stricture, large bowel obstruction
Procedure Performed: Exploratory laparotomy, sigmoidectomy, creation of end colostomy; anesthesia performed tap block preoperatively
Anesthesia Type: General
Specimen / Cultures: Sigmoid
Estimated Blood Loss: 75 mL
Complications: None
Operative Findings: Performed midline incision about 6 cm above umbilicus down to 4 cm above the pubic symphysis; upon entry, encountered clear ascites and dilated small bowel; encountered rather dense adhesions in the RLQ likely due to her prior
open appendectomy; these were taken down with blunt and sharp dissection; the extra-large Christo was placed; the abdomen was explored; the small bowel was distended but without signs of ischemia; there were multiple small bowel to right lower
quadrant and cecum adhesions that were lysed with sharp dissection in order to improve our visualization of the pelvis; the sigmoid colon was densely adherent to the left lower quadrant and left pelvic sidewall; this was very difficult dissection;
successfully identified the left iliac artery and vein, as well as what appeared to be the left gonadal and left ureter (however, we did not witnessed vermiculation); her anatomy was significantly distorted due to the extremely dense adhesions and
chronic inflammation from the sigmoid to the left pelvic brim/sidewall; after meticulous sharp dissection and blunt dissection, the sigmoid was primarily free from the left lower quadrant and left pelvic brim; however, the patient had a rather
narrow and deep pelvis; it appeared that the proximal aspect of the stent began at the pelvic inlet; in order to improve visualization, I mobilized the descending colon by taking down the white line of Toldt and bluntly dissecting the mesentery off
the left retroperitoneum and then I selected a proximal point along the proximal sigmoid and divided with a green load of the contour stapler; I used the Voyant impact to serially divide the mesentery distally, staying close to the mesenteric border
of the colon to the proximal aspect of the stent; the descending colon and small bowel were swept out of the way and the [place] was set up; with the improved visualization down the right aspect of the pelvis, we were able to identify dense
adhesions from the sigmoid to more anteriorly along the anterior aspect of the pelvis; after lysing these adhesions, the distal sigmoid and rectosigmoid came into view and these easily retracted out of the pelvis; the rectum and rectosigmoid
appeared healthy without inflammation; the thickened wall of the sigmoid began at about 10 cm proximal to the rectosigmoid junction, which is also where the distal aspect of the stent was palpated; the final attachments of the sigmoid to the left
pelvic sidewall were meticulously taken down, making sure to keep the left ureter safe; once the sigmoid was completely free, a point about 5 cm proximal to the rectosigmoid junction was selected and transected using a green load of the contour
stapler the mesentery was ligated with the Voyant impact; the sigmoid was passed off as specimen; there was no obvious perforation noted within the specimen; I mobilized more of the proximal sigmoid and descending colon, taking down the lateral
attachments up to the proximal descending colon and mobilizing the retroperitoneum off of the mesocolon; I irrigated the abdomen with 3 L of warm saline; at this point, I had adequate reach for an end colostomy at the LLQ ostomy marking site; in
order to prove the tension on the fascial closure, I milked the small bowel starting distally towards the ligament of Treitz twice; I palpated the NG tube within the stomach and anesthesia confirmed an extra 200 or so output; I checked the operative
site for hemostasis, which was confirmed; I placed a 3-0 Prolene tag at the right aspect of the Maksim pouch staple line; I made a skin opening at the LLQ ostomy marking site and took this down through the abdominal wall and brought out the
proximal staple line of the colon; I closed the fascia with 0 PDS and closed skin with intermittent telly and Telfa deyvi; I matured the ostomy in the usual partially�brooked fashion; after discussion with anesthesia, they elected to keep the
patient intubated as a precaution due to the desaturation she experienced after NG tube placement earlier
--- NOTE | 2024-03-27 21:10 | PTCARENOTE ---
rec'd pt direct back from OR via bed on monitor, vent and levo at 6 jairo, CHG bath done on adm, Pt not reversed from anesthesia, unresp, PER;l at 3mm, ST w/ 1' AV block, Pac's, Atach, ekg done, R conrad hernandez w/ poor wave form, very positional, goal to
keep map > 65, levo weaned off- see flow sheet for titrations, post tibial pulses via doppler, no pedal pulses via doppler, feet cool, pale- B grubbs, RADIO SCRIPT WRITER aware , will cont to monitor; #7 oral ett- 23 cm positioned in center, ac 14, tv 550, 8
peep, 50% fio2, sat 96, lungs decr in bases, hypo bowel sounds, left colostomy w/ pink budded stoma, R nares [place] to low cont wall suction draining brown liquid, irrigated w/ 30 tap h20, no vomiting, tapia draining marguerite urine
[2024-03-27] MEDS: NORMOSOL-R/PLASMALYTE-A 1000 IV (21:31)
[2024-03-27 21:48] LABS: B.E. 1.2 mmol/L; HCO3 23.6 mmol/L (21-28); Hemoglobin 15.4 g/dL (12.0-16.0); Ionized Calcium 0.89 mMOL/L (1.15-1.33); Mean Corp Hgb Conc. 34.2 g/dL (33.0-37.0); Mean Corpuscular Hgb 28.9 pg (27.0-31.0); Mean Corpuscular Volume 84.4 fL (81.0-99.0); Mean Platelet Volume 9.7 fL (7.4-10.4); O2 Saturation % 98.9 % (94-98); PCO2 31 mmHg (32-35); PO2 102 mmHg (83-108); Platelet Count 409 10^3/uL (130-400); Potassium 3.7 mMOL/L (3.5-5.1); Red Blood Cell Count 5.33 10^6/uL (4.20-5.40); Sodium 133 mMOL/L (136-145); White Blood Cell Count 14.7 10^3/uL (4.8-10.8); pH 7.49 (7.35-7.45)
[2024-03-27] MEDS: NSS 1000 IV (21:55)
[2024-03-27 22:01] LABS: Lactic Acid 1.2 mmol/L (0.7-2.0)
[2024-03-27] MEDS: FLAGYL 500 MG 100 IV (22:05)
[2024-03-27 22:07] LABS: APTT 26.4 Sec (23.4-35.0); INR 1.42; PT 17.4 Sec (11.4-14.6)
[2024-03-27] MEDS: SUBLIMAZE 50 MCG IV ×2 (22:12→23:36)
--- NOTE | 2024-03-27 22:15 | PTCARENOTE ---
BP elevated, HR elevated,50 jairo fent given
[2024-03-27 22:23] LABS: Blood Urea Nitrogen 26 mg/dl (7-17); Calcium 6.6 mg/dl (8.4-10.2); Carbon Dioxide 22 mmol/L (22-30); Chloride 103 mmol/L (98-107); Estimated Creatinine Clearance 76 ml/min; Glucose 160 mg/dl (70-99); Magnesium 2.9 mg/dl (1.6-2.3); Potassium 3.9 mmol/L (3.5-5.1); Sodium 138 mmol/L (135-145); eGFR > 60.00
--- NOTE | 2024-03-27 22:30 | PTCARENOTE ---
ac decr to 12, tv decr 500 & fio2 decr to 40 by resp theratpist per order
2250- 1 gm calcium chloride over 1hr hung per order
[2024-03-27] MEDS: CALCIUM CHLORIDE 10% SYRINGE 60 MG IV (22:50)
[2024-03-27] MEDS: LOPRESSOR 2.5 MG IV (23:05)
--- NOTE | 2024-03-27 23:05 | PTCARENOTE ---
atach up to 130, 500ml brown liquid stool via colostomy, B LINDEN Ceja aware, lopressor began q8hr per order
[2024-03-27 23:16] LABS: Phosphorus 2.4 mg/dl (2.5-4.5)
--- NOTE | 2024-03-27 23:40 | PTCARENOTE ---
awake, following commands, nods head yes to pain, fent 50mic bolus given, fent gtt hung at 25 jairo at 2350, diprivan gtt hung at 20 jairo at 0000, sys reviewed,pulses unch
[2024-03-27] MEDS: SUBLIMAZE 100 IV (23:53)
[2024-03-28] VITALS (56 sets, daily range): BP systolic 65–144; BP diastolic 33–99; BMI 31.2
[2024-03-28] MEDS: DIPRIVAN 100 IV
[2024-03-28] MEDS: OFIRMEV 100 IV ×2 (01:32→19:29)
--- NOTE | 2024-03-28 01:32 | PTCARENOTE ---
ofirmev 1 gm iv given for temp
--- NOTE | 2024-03-28 02:00 | PTCARENOTE ---
Temp incr, levophed gtt restarted for bp, B Brenna PILOT CONTROL OPERATOR aware of temp, urine oputput & BP, 500 ml LR bolus hung per order
[2024-03-28] MEDS: LR 500 IV (02:10)
--- NOTE | 2024-03-28 02:35 | PTCARENOTE ---
temp cont to climb, B LINDEN Ceja aware, urine, sputum and 1 set of blood cult obtained, unable to obtain 2nd set of cultures-m IV team also attempted, fio2 incrt to 100% for sat 89
0310- pt awake- precedex gtt started- see flow sheet for titrations, B LINDEN Ceja updated pts dtr, moy gtt started per order, 250 ml LR bolus hung for decr urine output, 1 gm calcium chloride hung over 1hr per order
--- NOTE | 2024-03-28 02:36 | PTCARENOTE ---
dip off for [temp per B Brenna, RETAIL ASSET PROTECTION SPECIALIST
[2024-03-28 03:00] LABS: B.E. -1.9 mmol/L; HCO3 20.9 mmol/L (21-28); Ionized Calcium 1.01 mMOL/L (1.15-1.33); O2 Saturation % 91.6 % (94-98); PCO2 30 mmHg (32-35); PO2 60 mmHg (83-108); Potassium 3.2 mMOL/L (3.5-5.1); Sodium 134 mMOL/L (136-145); pH 7.45 (7.35-7.45)
[2024-03-28 03:05] LABS: Urine Albumin 1+ (Neg - Trace); Urine Bilirubin 1+ (Negative); Urine Character Slightly Cloudy (Clear); Urine Glucose Negative (Negative); Urine Ketone 2+ (Negative); Urine Leukocyte Trace (Negative); Urine Nitrite Negative (Negative); Urine Occult Blood 4+ (Negative); Urine Urobilinogen 1+ (Neg - 1+)
[2024-03-28] MEDS: PRECEDEX 100 IV ×3 (03:10→22:41)
[2024-03-28 03:12] LABS: Hematocrit 44.2 % (37.0-47.0); Hemoglobin 14.9 g/dL (12.0-16.0); Mean Corp Hgb Conc. 33.7 g/dL (33.0-37.0); Mean Corpuscular Hgb 28.5 pg (27.0-31.0); Mean Corpuscular Volume 84.7 fL (81.0-99.0); Mean Platelet Volume 9.9 fL (7.4-10.4); Platelet Count 225 10^3/uL (130-400); Red Blood Cell Count 5.22 10^6/uL (4.20-5.40); Red Cell Dist. Width 13.9 % (11.5-14.5); White Blood Cell Count 4.7 10^3/uL (4.8-10.8)
[2024-03-28 03:13] LABS: Urine Color Amber
[2024-03-28] MEDS: NEO-SYNEPHRINE 250 IV ×2 (03:25→09:56)
[2024-03-28 03:27] LABS: Triglycerides 84 mg/dl (10-149)
[2024-03-28 03:31] LABS: ALT (SGPT) 21 U/L (0-35); AST (SGOT) 43 U/L (14-36); Alkaline Phosphatase 73 U/L (38-126); Blood Urea Nitrogen 31 mg/dl (7-17); Calcium 7.1 mg/dl (8.4-10.2); Carbon Dioxide 21 mmol/L (22-30); Chloride 107 mmol/L (98-107); Estimated Creatinine Clearance 59 ml/min; Glucose 121 mg/dl (70-99); Potassium 3.5 mmol/L (3.5-5.1); Sodium 139 mmol/L (135-145); Total Bilirubin 1.6 mg/dl (0.2-1.3); Total Protein 4.1 g/dl (6.3-8.2); eGFR > 60.00
[2024-03-28 03:37] LABS: Urine Amorphous Seen; Urine Mucus Many; Urine Squamous Cell >30 /LPF (Few)
[2024-03-28 03:38] LABS: Urine Urothelial Cell >30 /LPF (FEW)
[2024-03-28 03:39] LABS: Urine Hyaline Cast >15 /LPF (0-2); Urine White Cell Cast 0-2 /LPF
[2024-03-28 03:40] LABS: Urine Bacteria Many (Negative); Urine Red Blood Cell >100 /HPF (0-2); Urine White Cell 16-20 /HPF (0-5)
[2024-03-28] MEDS: LR 250 IV (03:40)
[2024-03-28] MEDS: CALCIUM CHLORIDE 10% SYRINGE 60 MG IV (03:41)
[2024-03-28 03:44] LABS: Magnesium 2.6 mg/dl (1.6-2.3)
--- NOTE | 2024-03-28 03:50 | W.PN.UPDATE ---
Update Note
Progress Note Update
0000 Patient spiked temp and become hemodynamically unstable, (Tylenol, cooling blanket, levophed restarted, 500ml of lactate ringer bolus, bucio culture, CXR possible left based consolidation, currently on cefepime, hgd stable, ostomy has put out at
least 1 liter of brown stool), urine out decrease (another 250ml bolus); Daughter updated.�
[2024-03-28] MEDS: POTASSIUM PHOSPHATE 259.0909 MEQ IV (04:05)
--- NOTE | 2024-03-28 04:05 | PTCARENOTE ---
sys reviewed, liquid stool from colostomy is slowing down, 40 KPhos hung over 4 hr per order
[2024-03-28] MEDS: FLAGYL 500 MG 100 IV ×2 (05:02→13:11)
--- NOTE | 2024-03-28 05:03 | PTCARENOTE ---
Diann Ceja NP aware of urine output- will cont to monitor
[2024-03-28] MEDS: LEVOPHED 250 IV ×5 (05:37→13:11)
[2024-03-28] MEDS: NSS 1000 IV (05:37)
[2024-03-28] MEDS: SUBLIMAZE 50 MCG IV ×5 (05:49→16:13)
[2024-03-28] MEDS: VANCOCIN 200 IV (06:02)
[2024-03-28] MEDS: MAXIPIME 2000 MG IV (07:26)
[2024-03-28] MEDS: STERILE WATER FOR INJECTION 10 ML IV ×3 (07:26→17:34)
[2024-03-28 07:51] LABS: Absolute Neutrophils -Man Diff 4.1 10^3/uL (1.4-6.5); Band Neutrophils 22 % (0-3); Lymphocytes 6 % (20-51); Segmented Neutrophils 66 % (42-75)
[2024-03-28 07:52] LABS: Acanthocytes 1+; Metamyelocytes 4 % (-); Normal RBC Morphology No; Platelets Checked Yes
[2024-03-28 07:53] LABS: Total Cells Counted 100
--- NOTE | 2024-03-28 08:06 | W.PN.ANS.POP ---
Anesthesia Post Operative
- Anesthesia Post Op Note
Vital Signs Stable-See Nursing Note: Yes (Pt continues to be on BP support )
Airway Patent: Yes (Pt still Intubated)
Adequate Pain Control: Yes
Change in Mental Status: No
Current Postoperative Nausea & Vomiting: No
Anesthesia Complications: No
General Anesthetic Recall: No
Unplanned Admission: No
Post Op Hydration Adequate: Yes
--- NOTE | 2024-03-28 08:30 | PTCARENOTE ---
Received pt. via handoff at bedside. Pt alert and oriented to verbal stimuli, pupils reactive, but demeanor anxious and slightly restless. NSR w/ first degree HB. Upper pulses palpable, LE pulses present with Doppler. ETT 7 and 23 @lip. AC
12/500/8/100%, lungs diminished at bases and more coarse on the left side. Hypoactive bowel sounds. Stoma reddish purple color, ostomy bag CDI with small amount of brown drainage in bag. [place] in Right nare @60. Rectal probe removed per surgical PA.
Thermal tapia put in for more accurate output measurements with the assistance of 3 staff members because of combative patient. Abdominal wound dressing intact w/ small amount of drainage. BP labile, pressors and sedation per worklist. Shoe Maker
and surgeon at bedside, stat labs sent. Family at bedside.
--- NOTE | 2024-03-28 08:57 | PTCARENOTE ---
Received pt. via handoff at bedside. Pt alert and oriented to verbal stimuli, pupils reactive, but demeanor anxious and slightly restless. NSR w/ first degree HB. Upper pulses palpable, LE pulses present with Doppler. ETT 7 and 23 @lip. AC
12/500/8/100%, lungs diminished at bases and more coarse on the left side. Hypoactive bowel sounds. Stoma reddish purple color, ostomy bag CDI with small amount of brown drainage in bag. [place] in Right nare @60. Rectal probe removed per surgical PA.
Thermal tapia put in for more accurate output measurements with the assistance of 3 staff members because of combative patient. Abdominal wound dressing intact w/ small amount of drainage. BP labile, pressors and sedation per worklist. Manager Deli
and surgeon at bedside, stat labs sent. Family at bedside.
[2024-03-28 09:14] LABS: HCO3 16.9 mmol/L (21-28); O2 Saturation % 99.3 % (94-98); PCO2 36 mmHg (32-35); PO2 112 mmHg (83-108); pH 7.28 (7.35-7.45)
[2024-03-28 09:24] LABS: INR 1.91; PT 21.7 Sec (11.4-14.6)
[2024-03-28 09:26] LABS: Lactic Acid 6.3 mmol/L (0.7-2.0)
[2024-03-28 09:48] LABS: Troponin I 0.149 ng/ml
[2024-03-28] MEDS: LR 1000 IV ×5 (09:51→19:32)
[2024-03-28] MEDS: ATIVAN 0.5 MG IV (09:55)
[2024-03-28] MEDS: NSS (PRESERVATIVE FREE) 0.25 ML IV (09:56)
--- NOTE | 2024-03-28 10:14 | CON.INTV ---
Addendum entered and electronically signed by Rafael Corcoran MD 03/28/24 13:03:
Patient is seen and examined independently by myself. Reviewed note and assessment below, agree with resident assessment.
Briefly, 78-year-old female whose history dates back to 03/21 with a ED visit for GI symptoms, constipation. Improved with ER intervention, sent home. Patient presenting with worsening nausea, with imaging that confirmed possible bowel obstruction.
NG tube was placed. Patient was treated with eventual colonic stent. Then developed increased symptoms, repeat endoscopy showed patent stent but a possible changes consistent with ischemic colitis. Decision was made to take to surgery, underwent
laparotomy, sigmoidectomy, creation of end colostomy. Patient did have some hypoxia within G-tube placement and decision was to maintain on mechanical ventilation. Patient subsequently developed hypotension in the setting of high fevers, chronic
IV fluid boluses, initiation of pressors. We are asked to help from critical care standpoint
Family history, social history as below. Allergies noted, amoxicillin/lisinopril/sulfa which causes a rash.
Physical exam
Mottled appearance involving lower extremities and arms, cool to touch. Chest exam is clear. No murmurs
Abdominal incision with dressing in place, ostomy intact
Upper extremity A-line, PICC line
Data reviewed
Initial abdominal CT 03/26/2024 without any parenchymal disease. Abdominal findings as below
Chest x-ray ET tube appropriate. Bibasilar pleural-parenchymal disease, likely atelectasis, small pleural effusions
PICC line in place
Echocardiogram 04/15 with normal biventricular function, PA pressure 43
EKG with nonspecific changes
A/P
Patient remains critically ill
Moving forward, we will continue with LR boluses as she seems to respond to this. Maintenance fluids with LR will continue
Urine output minimal. Follow creatinine
Extent of hypoxia noted, elevated Aa gradient
Suspect this is due to underlying sepsis from underlying ischemic bowel. Lactate increased
Continue with IV fluids.
At risk for lung injury process, will need to follow carefully. Of note following 2 L of bolus, oxygenation actually stable/improved
Other etiologies to consider include thromboembolic disease, aspiration event
Extent of findings on chest x-ray and exam argue against significant aspiration event but cannot rule out.
We will check lower extremity Dopplers. Reviewed at length with colorectal surgery, will consider empiric heparin therapy without bolus
Patient remains on broad-spectrum antibiotics, ID has been consulted
Maintain sedation, fentanyl/Precedex. Patient developed significant hypotension with propofol
Patient takes outpatient anxiolytic therapy, will continue with low-dose lorazepam as needed
Daughter and son at bedside.
They have requested that comfort be primary goal while resuscitation efforts continue.
They are considering transition to comfort measures depending on how she does in the next 24 to 48 hours. Emotional support provided
Remains DNR
Reviewed above at length with critical care nursing, pharmacy, respiratory care, colorectal surgery, primary service, cardiology
TCCT 55 min
Original Note:
Consultation
Consultation Request
Date/Time Consultation Requested: 03/27/24 21:09
Date/Time Consultation Performed: 03/27/24 21:09
Medical History
-
Chief Complaint: Bowel obstruction
History of Present Illness:
Patient is a 78-year-old woman who presented to the emergency department on 03/24 for continued difficulty with bowel movements, associated with decreased appetite with nausea sensation. Patient also had noted increased abdominal distention as well
as indigestion. She was seen in the emergency department 3 days prior for potential constipation and was discharged. She has a past medical history of hypertension, anxiety, depression, and hyperlipidemia. In the emergency department she was
given Zofran and Protonix along with IV fluids. Troponins were negative in the emergency department. White blood cells were elevated at 13.3 and hemoglobin was 17 but considered to be hemoconcentrated. Magnesium was 2.9 in the emergency
department. Blood pressure was 97/71 and pulse was 67 in the emergency department. ECG conducted showed a second-degree Mobitz [address] conducted in the emergency department showed a sliding hiatal hernia with severe small bowel
obstruction and colonic obstruction located in the proximal sigmoid colon with severe diverticulosis in the sigmoid colon. She was subsequently admitted for bowel obstruction.
Colorectal surgery along with cardiology and gastroenterology were consulted. Cardiology recommended holding atenolol due to concerns of bradycardia and Mobitz I. Colonoscopy with stent placement was conducted on 03/25. On 03/26 NGT was removed
clears were started and colorectal surgery recommended a definitive cholectomy within 2 to 3 weeks following her procedure. Following the procedure she had 2 small bowel movements with no large bowel movement. Repeat CT of the abdomen was
concerning for malfunction/occlusion of the stent. A repeat flexible sigmoidoscopy was conducted showing the surrounding mucosa at the point of stenosis appearing ulcerated and discolored with friability. Colorectal surgeon was under the
impression that it was possibly ischemia. After discussion, a decision was made to pursue surgical intervention. Exploratory laparotomy, sigmoidoscopy, with creation of end colostomy was conducted on 03/27. Patient spiked a temperature, became
hemodynamic hemodynamically unstable, Levophed was restarted, Tylenol given, cooling blanket given, 500 bolus of lactated ringer given. Broad-spectrum antibiotics including cefepime with vancomycin administered. Patient is currently on the ICU for
monitoring of hemodynamic stability and sepsis secondary to bowel obstruction s/p stenting and sigmoidoscopy.
Past Medical History
Past Medical History: HTN, Hypercholesterolemia, Psychiatric (Anxiety and depression) and Other (Irritable bowel syndrome)
Past Surgical History: Appendectomy and Orthopedic (Total knee replacement)
Social History
Tobacco: Non-smoker
Alcohol: None
Drug: None
Personal:
Living: With Family
Employment: Retired
Family History
Family History: Hypertension
Allergies / Home Medications
Allergies
Allergy/AdvReac Type Severity Reaction Status Date / Time
amoxicillin [From Augmentin] Allergy Hives Verified 03/24/24 08:30
clavulanic acid Allergy Hives Verified 03/24/24 08:30
[From Augmentin]
lisinopril Allergy Hives Verified 03/24/24 08:30
Sulfa (Sulfonamide Allergy Rash Verified 03/24/24 08:30
Antibiotics)
Home Medications
�Medication �Instructions �Recorded �Confirmed �Last Taken �Type
atenolol 25 mg tablet 25 mg PO BID Blood Pressure 07/28/12 03/24/24 03/23/24 History
hydrochlorothiazide 25 mg tablet 25 mg PO DAILY Blood Pressure 07/28/12 03/24/24 03/23/24 History
aspirin 81 mg chewable tablet 81 mg PO DAILY Blood Clot 08/08/22 03/24/24 03/23/24 History
Prevention/Tx
alprazolam 0.25 mg tablet 0.25 mg PO BIDPRN PRN anxiety 03/24/24 03/24/24 03/23/24 16:00 History
escitalopram oxalate 5 mg tablet 5 mg PO DAILY Mental Health/Anxiety 03/24/24 03/24/24 03/23/24 16:00 History
rosuvastatin 5 mg tablet 5 mg PO QPM High Cholesterol 03/24/24 03/24/24 03/23/24 History
Review of Systems
-
All other systems: Negative unless noted
Constitutional: No Symptoms
EENT: No Symptoms
Respiratory: No Symptoms
Cardiac: No Symptoms
Abdomen/GI: Abdominal Pain
Vitals / Labs / Diagnostic Testing
Vital Signs
Temp Pulse Resp BP Pulse Ox
97.5 F 101 21 140/66 98
03/28/24 09:31 03/28/24 09:00 03/28/24 09:00 03/28/24 09:00 03/28/24 10:02
Laboratory Results
03/27/24 03/27/24 03/27/24
21:37 21:37 21:37
PT 17.4 H Cancelled
INR 1.42 Cancelled
APTT 26.4
pH 7.49 H
pCO2 31 L
pO2 102
HCO3 23.6
O2 Delivery Level
03/28/24 03/28/24
02:54 08:51
PT 21.7 H
INR 1.91
APTT
pH 7.45 7.28 L
pCO2 30 L 36 H
pO2 60 L 112 H
HCO3 20.9 L 16.9 L
O2 Delivery Level
Microbiology
03/27/24 21:37 Nose Nasal Screen MRSA (PCR) - Final
MRSA not detected - performed by PCR methodology.
Diagnostic Testing:
Physical Exam
-
HEENT: Normocephalic
Cardiovascular: Regular Rhythm
Respiratory: Clear
GI: Tender
Neurology: Awake
Skin: Warm and Dry
Assessment
-
Impression:
-Large bowel obstruction
-Sepsis
-Second-degree Mobitz type I AV block
-Essential hypertension
-Hyperlipidemia
-Diverticulosis
-Sliding hiatal hernia
-Anxiety and depression
Plan:
-Large bowel obstruction - s/p exploratory laparotomy and creation of a colostomy on 03/27/2024
Patient presented on 03/24/2024 with abdominal pain, nausea, and constipation for a week, had worsening abdominal distention on 03/27/2024 and a NGT was placed and had a flexible sigmoidoscopy conducted showing possible ischemic bowel in the setting of
sigmoid stricture and went to the OR for exploratory laparotomy and creation of colostomy on 03/27/2024
Soft stool seen in colostomy bag
Colorectal surgery and gastroenterology continue to follow
Continue to support with pain control
-Sepsis- Improving
Patient remains intubated and is Raman status -monitor I/Os
1 L of lactated Ringer's at 125 mL given
Patient hemodynamically stable
Continue pressors as needed
Current antibiotics of cefepime and vancomycin
Recent urine analysis showed 2+ ketones, 4+ occult blood, 1+ bilirubin, trace leukocyte esterase, 16-20 high-power field of white blood cells, many bacteria, and 1+ albumin. Cannot rule out urinary contribution for sepsis
Blood cultures sent
-Second-degree Mobitz type I AV block
Continue IV metoprolol for rate control of heart rates greater than 100 bpm
Continue telemetry
Cardiology reviewed overnight telemetry and was under the impression that the patient had sinus rhythm/sinus bradycardia and first-degree AV block with Wenckebach rarely.
Cardiology continues to follow
-Essential hypertension
IV meds as needed to control blood pressure
-Hyperlipidemia
Stable, continue to monitor
-Diverticulosis
Recommend patient follows up with PCP in the outpatient setting upon discharge
-Sliding hiatal hernia
Recommend patient follows up with PCP in the outpatient setting upon discharge
-Anxiety and depression:
Stable, continue to monitor
Ativan adjusted to every 4 hours
DVT prophylaxis is heparin
DNR/DNI status
[2024-03-28 10:32] LABS: Fibrinogen 508 MG/DL (199-459)
[2024-03-28] MEDS: SUBLIMAZE 100 IV ×2 (11:07→17:54)
--- NOTE | 2024-03-28 11:42 | W.PN.CRS1 ---
Today's Communication / Plan
-
ID consult
Ventilator per nozzle and sleeve worker team
Panculture pending
Continue NG tube
Assessment/Plan
-
POD#1 Exploratory laparotomy, sigmoidectomy, creation of end colostomy; anesthesia performed tap block preoperatively
Tmax 103.0, WBC 4.7, hypotensive on 2 pressers
-Currently on 2 pressors and intubated and sedated
-consult ID given fevers overnight for antibiotic management
-Ventilator management per nozzle and sleeve worker team
-Wound RN for colostomy management
-Pain culture pending
-Stool culture pending
-Okay for out of bed once extubated
-Will need to consider nutrition if remains intubated
-OR pathology pending
-Appreciate consultants
-Continue to monitor urine output, has been low over the past 2 hours, may require a bolus
-Heparin subcu for DVT prophylaxis, teds and SCDs in place
-If extubated, continue NG tube
-Continue Raman today for I's and O's (replaced by RN this morning)
Subjective Data
Procedure
03/27/2024- sigmoidectomy with colostomy
Subjective Data
Date of Service: March 28, 2024
Patient is intubated and sedated
Objective Data
-
Vital Signs
Temp Pulse Resp BP Pulse Ox
96.7 F L 90 12 130/80 98
03/28/24 11:38 03/28/24 11:30 03/28/24 11:30 03/28/24 11:30 03/28/24 11:30
Intake & Output
03/27/24 03/28/24 03/29/24
06:59 06:59 06:59
Intake Total 700 / 700 3367.4 / 3657.9 2141.1 / 2141.1
Output Total 1392 / 1392
Balance 700 / 700 1975.4 / 2265.9 213.1 / 2131.1
Intake:
Oral fluids 700 / 700
IV fluids (Total) 2907.4 / 3197.9 2141.1 / 214.1
LR bolus 750 / 750 1000 / 1000
LR@ 125 200 / 200
Normosol 200 / 200
Nss 1,000 ml @ 125 mls/hr IV . 1125 / 1250 375 / 375
Q8H WILLAM Rx#:[id number]
Potassium Phos 130 / 195 130 / 130
calcium cloride 160 / 160
diprivan 10.8 / 10.8
fent 22.5 / 30.0 45.0 / 45.0
levophed 225.0 / 285.0 383.3 / 383.3
neosyn 66 / 90 174 / 174
precedex 18.1 / 27.1 33.8 / 33.8
IV piggybacks 400 / 400
Amount instilled into GI Tube ( 60 / 60
Total)
[place] Sump 60 / 60
Output:
Liquid stool amount 1000 / 1000
Colostomy 1000 / 1000
Gastrointestinal tube output ( 150 / 150
Total)
[place] Sump 150 / 150
Urine, Raman 242 / 242
Other:
Number of approximated SMALL 1
amounts of urine
Number of approximated MODERATE 3
amounts of urine
Number of immeasurable emeses? 1
Physical Exam
-
General: Other (Intubated and sedated)
Abdomen: Soft and Other (Colostomy in place, dark pink, liquid stool in bag)
--- NOTE | 2024-03-28 11:46 | PTCARENOTE ---
PICC inserted via IV team. Patient agitated and restless during procedure, Ativan given and fentanyl bolus administered. Levo titrated see flowsheet. Hygiene performed. Will continue to monitor.
--- NOTE | 2024-03-28 12:00 | WOUNDNOTE ---
[facility] RN note: Patient intubated, s/p exploratory lap, sigmoidectomy, end colostomy last night. Stoma large, dark pink and budded/swollen. Colostomy appliance intact with some liquid brown stool in pouch. Assisted CERAMIC SPRAYER Elizabeth with turning patient
to R semi side lying position. RN Elizabeth assessed patient's sacrum and stated skin was intact. Skin on heels intact. Heels off bed with pillows. Protective foam applied to heels. Colostomy teaching folder and Ostomy supplies (Jona wafer
#[id number], Malcom seals and Cameron pouch # [id number]) left in room. Plan to change appliance next week.
--- NOTE | 2024-03-28 12:01 | WOUNDNOTE ---
[facility] RN note: Patient s/p end colostomy last night. Stoma large dark pink and budded/swollen. Colostomy appliance intact with some liquid stool in pouch. Assisted RV MECHANICALISON Johnson with turning patient to R semi side lying position. ALISON Johnson
assessed patient's sacrum. Skin on heels and sacrum intact. Heels off bed with pillows. Protective foam applied to heels.
--- NOTE | 2024-03-28 12:20 | PTCARENOTE ---
Addendum entered by Elizabeth Calderon RN 03/28/24 12:50:
third liter LR bolus infusing, increased nonverbal pain cues. prn fentanyl administered, gtt adjustment per work list. colorectal MD at bedside, updated
Original Note:
patient assessed, coarse breath sounds anteriorly, monitor nsr with av block. PICC patent, all gtts now infusing thru picc line. adjustments per work list. urine marguerite and cloudy,ostomy budded, re/purple in color. small amount stool in bag. Ostomy
RN in to assess. ngt to suction per orders. draining green fluid. restraints maintained per patient safety.
--- NOTE | 2024-03-28 12:45 | CM ---
CM following re: discharge planning.
Reviewed pt's chart, met with pt.
Pt is POD#1 Exploratory laparotomy, sigmoidectomy, creation of end colostomy; anesthesia performed tap block preoperatively. Per rounds meeting, patient remains intubated and is Raman status, continue NG tube, continue supportive care.
PT and OT will evaluate the pt when clinically appropriate to determine a level of care at discharge.
D/C plan: uncertain at this time and will de[end on pt's progress.
CM will follow with discharge plan updates as hospitalization progresses
--- NOTE | 2024-03-28 13:10 | W.PN.UPDATE ---
Update Note
Progress Note Update
Reviewed the chart and evaluated the patient at the bedside with her nurse; Levophed has been titrated up to 23, moy been titrated down to 100; she just finished her third bolus of LR, and is making a little more urine; Tmax was 103, most recently
has been afebrile; abdomen soft, mildly distended, no grimacing with palpation, ostomy with dark red/purple changes to the mucosa near the mucocutaneous junction but well-perfused centrally, stool in the appliance; discussed with respiratory technician
regarding possible causes of her sepsis, which include abdominal sepsis, aspiration pneumonitis, less likely urinary; regarding possible abdominal sepsis, there was no contamination or concern for ischemia to the small bowel or remainder of colon
that was left in situ, so abdominal sepsis seems less likely but is certainly possible; respiratory technician believes that most likely, sepsis is from an abdominal source as the labs/imaging and clinical response has not been consistent with respiratory
source; preferred imaging study would be CTA of the abdomen and pelvis to rule out ischemia to the colon; however, she likely is developing an JOSEF with oliguria and a contrast bolus would cause significant further injury to the kidneys;
additionally, my suspicion for colonic ischemia is lower based on her current exam (no evidence of peritonitis, no blood per ostomy or per rectum, evidence of perfusion to the ostomy with ostomy function); prophylactically, we will start a heparin
drip without a bolus in case there has been any thromboembolic events leading to ischemia; cont aggressive IVF and cont IV abx
Had lengthy discussion with patient's daughter, Otilia, explaining the above and the risks involved with each treatment option; specifically, starting a heparin drip and inciting a bleeding event, which, based on the operative findings, is a lesser
concern; additionally, if it is felt that sepsis is due to an abdominal source, a repeat exploratory laparotomy may become indicated for better source control; at this point, Otilia made it clear that she is not interested in another surgery and
another exposure to general anesthesia; additionally, she would like to keep the DNR intact in case of any cardiopulmonary collapse; she is willing to continue other aggressive treatment options, but admits that she may prefer to transition to
comfort measures over the next 1 to 2 days; therefore, we will start a heparin drip and hold off on a CTA, no surgery at this time
[2024-03-28 13:26] LABS: Blood Urea Nitrogen 32 mg/dl (7-17); Carbon Dioxide 19 mmol/L (22-30); Chloride 106 mmol/L (98-107); Estimated Creatinine Clearance 38 ml/min; Glucose 140 mg/dl (70-99); Sodium 136 mmol/L (135-145); eGFR 38.51
[2024-03-28 13:31] LABS: Hematocrit 36.4 % (37.0-47.0); Hemoglobin 12.2 g/dL (12.0-16.0); Mean Corp Hgb Conc. 33.5 g/dL (33.0-37.0); Mean Corpuscular Hgb 28.1 pg (27.0-31.0); Mean Corpuscular Volume 83.9 fL (81.0-99.0); Mean Platelet Volume 11.1 fL (7.4-10.4); Platelet Count 147 10^3/uL (130-400); Red Blood Cell Count 4.34 10^6/uL (4.20-5.40); Red Cell Dist. Width 14.5 % (11.5-14.5); White Blood Cell Count 43.5 10^3/uL (4.8-10.8)
--- NOTE | 2024-03-28 13:34 | PTCARENOTE ---
labs sent, critical results to attendant child activity, orders received. reviewed gtts,plan of care
[2024-03-28] MEDS: KCL 100 IV (13:44)
--- NOTE | 2024-03-28 13:48 | W.PN.UPDATE ---
Addendum entered and electronically signed by Rafael Corcoran MD 03/28/24 14:38:
Updated son and daughter at length at bedside regarding plan
Original Note:
Update Note
Progress Note Update
Patient seems to respond to LR boluses with improvement in blood pressure
She has received 3 L to date.
Based on pulmonary parameters, although oxygenation is improving, compliance is slowly worsening, plateau pressure trending up towards 25
Hold off on further boluses for now, continue maintenance therapy
Urine output will be followed closely
Reviewed at length with colorectal surgery
Pulmonary findings on chest x-ray and exam are not enough to explain extent of hypoxemia
Suspect underlying sepsis, severe metabolic acidosis
Possibility of thromboembolic disease noted
Discussed possibility of ischemic colitis
Will start heparin therapy without bolus, PE protocol without bolus
Adjust as able
Fibrinogen levels are normal
Will add vasopressin if needed as it will be more difficult to provide boluses given possible worsening of pulmonary compliance
Reviewed at length with critical care nursing, respiratory care, colorectal surgery
Colorectal surgery updated family, daughter
TCCT 30 min
[2024-03-28] MEDS: HEPARIN 25000 UNITS/250 ML IV (13:49)
--- NOTE | 2024-03-28 14:04 | PHA.VAN.FU ---
Vancomycin Assessment / Plan
- Assessment
Renal Function: SCR Increasing
WBC's are: Trending Up
Concomitant Antimicrobials: Cefepime, metronidazole
- Dosing Plan
Adjust Regimen to: dosing by level for increasing SCR
- Monitoring Plan
Random Level: 03/29 0600
- Follow Up
Pharmacy will continue to follow.
Vancomycin Follow UP
- -
Patient Age: 78
Patient Sex: Female
Vancomycin Day #: 2
Indication: Pulmonary/Respiratory
Requesting Provider: Dr. Gonsalez
Pertinent Antimicrobial Allergies:
amoxicillin/clavulanic acid - hives
sulfonamide antibiotics - rash
Height / Weight:
Height 5 ft 7 in
Actual Weight 90.2 kg
- Vital Signs / Lab Results
Temp Pulse Resp BP Pulse Ox
96.7 F L 94 14 116/63 97
03/28/24 14:01 03/28/24 13:50 03/28/24 13:50 03/28/24 13:00 03/28/24 13:50
Lab Results - Hematology
03/26/24 03/27/24 03/27/24
05:13 05:37 21:37
WBC 14.7 H 16.6 H 14.7 H
Band Neutrophils
03/28/24 03/28/24
02:54 13:03
WBC 4.7 L 43.5 H*
Band Neutrophils 22 H
Lab Results - Chemistry
03/26/24 03/27/24 03/27/24
05:13 05:37 21:37
BUN 31 H 29 H 26 H
Creatinine 0.7 0.7 0.7
Estimated Creat Clear 74 74 76
Albumin 3.4 L
03/28/24 03/28/24
02:54 13:03
BUN 31 H 32 H
Creatinine 0.9 1.4 H
Estimated Creat Clear 59 38
Albumin 2.0 L
03/27/24 03/28/24 03/28/24
21:37 08:51 13:03
Lactic Acid 1.2 6.3 H* 5.0 H*
Lab Results - Urine
03/28/24
02:45
Urine Nitrite (Reflex) Negative
Leukocyte Esterase Rfl Trace A
Ur Squamous Epith Cells >30
Microbiology Results
03/28/24 03:06 Gram Stain - Preliminary
Tracheal Aspirate
03/27/24 21:37 Nasal Screen MRSA (PCR) - Final
Nose MRSA not detected - performed by PCR methodology.
[2024-03-28] MEDS: PITRESSIN 100 IV ×2 (14:12→19:38)
--- NOTE | 2024-03-28 14:47 | W.PN.HOSP.TC ---
Addendum entered and electronically signed by Will Gonsalez MD 03/28/24 14:54:
#JOSEF
2/2 shock, managing shock and IVF
follow Cr
Original Note:
Today's Communication/Plan
-
cont broad spectrum Abx
Added c.diff test
note new heparin drip
Assessment / Plan
Assessment / Plan
78yo F with PMHx of 2nd degree AVB type 2, diverticulitis, HTN, HLD came with nausea and abd pain for 1 week. She was seen in ED [address] at that time showed constipation, but with decompressed sigmoid. At this time concern for large
bowel obstruction with transition point in the sigmoid. Found stricture 2/2 diverticulosis, had stent placed on 03/25/24, however remained in distress. Repositioning attempted on 03/27/24 and during sigmoidoscopy patient found ischemic bowel, so
Hartmanns done by ColoRectal Sx. Patient alsowas found hypoxic, possible aspiration pneumonia later complicated with septic shock and mamaged in ICU as remained intubated postOP
A/P:
#Large bowel obstruction with ischemic bowel
NG for decompression
NPO
Colorectal Sx eval: s/p stent by GI on 03/25/24 - no biopsy taken as no signs of tumor. Patient has no significant resolution - to reposition stent on 03/27/24, then Hartmans done on the same date
IVF
Heparin drip
#Aspiration pneumonia with septic shock and acute hypoxic failure ands LLL consolidation on XR
#Leukemoid reaction
Check C.diff
Vent mgmt as per Pulm
Sedation vacation and wean off pressors
Cefepime/Metronidazole/Vanco and ID cosnult
Sputum Cx if possible
#2nd degree Mobitz type 1 AVB
Incidental
avoid AVB agents
Cardio consult
#Essential HTN
use IV meds as needed to control BP
#HLD
#Anxiety d/o
cont meds when able to take PO
#Leukocytosis
#Thrombocytosis
Reactive
no indication for Abx
follow CBC
#Diverticulosis
#Small hiatal hernia
#DJD
follow up with PCP upon d/c
#Hypokalemia
replete
DVT ppx hep drip
DNR/DNI
I have spent at least 57min reviewing chart, test results and direct aptient care
Anticipated Discharge: > 48 hours
Subjective/Interval History
-
Date of Service: March 28, 2024
Objective Data
-
Labs:
Laboratory Results
03/28/24 03/28/24 03/28/24
02:54 08:51 13:03
WBC 4.7 L 43.5 H*
Hgb 14.9 12.2
Hct 44.2 36.4 L
Plt Count 225 D 147 D
PT 21.7 H
INR 1.91
APTT
HCO3 20.9 L 16.9 L
Sodium 139 136
Potassium 3.5 3.0 L
Chloride 107 106
Carbon Dioxide 21 L 19 L
BUN 31 H 32 H
Creatinine 0.9 1.4 H
Glucose 121 H 140 H
Calcium 7.1 L 7.0 L
Total Bilirubin 1.6 H
AST 43 H
ALT 21
Alkaline Phosphatase 73
03/28/24 03/28/24
13:29 20:00
WBC
Hgb
Hct
Plt Count
PT
INR
APTT Cancelled Pending
HCO3
Sodium
Potassium
Chloride
Carbon Dioxide
BUN
Creatinine
Glucose
Calcium
Total Bilirubin
AST
ALT
Alkaline Phosphatase
Vital Signs:
Vital Signs
Temp Pulse Resp BP Pulse Ox
96.7 F L 79 14 93/59 96
03/28/24 14:01 03/28/24 14:40 03/28/24 14:40 03/28/24 14:00 03/28/24 14:40
I&O
03/27/24 03/28/24 03/29/24
06:59 06:59 06:59
Intake Total 700 / 700 3367.4 / 3657.9 5055.4 / 5055.4
Output Total 1392 / 1392 129 / 129
Balance 700 / 700 1975.4 / 2265.9 4926.4 / 4926.4
Review of Systems
-
Unable to obtain full review of systems at this time due to: Acuity and Patient Intubation
Physical Exam
-
General: Intubated
Respiratory: Clear to Auscultation
Cardiac: Regular Rhythm
GI: Soft and Ostomy (with brown stool)
Musculoskeletal: No Clubbing, No Cyanosis and No Edema
Neuro: Sedated
[2024-03-28] MEDS: MAXIPIME 1000 MG IV (15:48)
[2024-03-28] MEDS: LEVOPHED 258 MG IV ×2 (15:49→19:34)
--- NOTE | 2024-03-28 16:20 | W.PN.CARDCBS ---
Addendum entered and electronically signed by Scott Cruz MD 03/28/24 16:47:
I saw and examined the patient.
The METAL MINER or PA's note was reviewed and I agree with the note.
Comment: General: Awake on the ventilator
Neck: Supple, no JVD, HJR, carotids +2 B/L, no bruits bilaterally.
Heart: Non displaced PMI, RRR, no murmurs, No S3, S4, no rubs.
Lungs: Scattered rhonchi
Extremities: No clubbing, cyanosis or edema bilaterally.
Neuro: Awake on the ventilator
She remains intubated. Brief episodes of atrial tachycardia. Treatment of Isabelle tach is limited due to hypotension requiring pressors. If worsening could consider amiodarone but would hold off for now. She also had bradycardia earlier during
hospital stay. Discussed with nursing
Original Note:
Today's Communication / Plan
-
critically ill
follow rhythm. treatment of AT limited due to hypotension requiring pressors. also with bradycardia earlier in hospital stay.
Impression / Plan
-
PCP: Dr. Cooper
Adventure Challenge Instructor: Cristiana
Assessment:
Presented 03/24/2024 with abdominal pain, nausea and constipation x 1 wk
Large bowel obstruction with possible ischemic bowel
Status post exploratory laparotomy, sigmoidectomy, creation of end colostomy 03/27/24
Hypotension requiring pressors
Shock suspected secondary to sepsis
Atrial tachycardia
Sinus rhythm with first-degree AV block with intermittent second-degree AV block Mobitz type I
HTN
Hyperlipidemia
Palpitations
Family history of premature CAD
Anxiety
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
3-day Bardy monitor completed 11/20/2020: Sinus rhythm with heart rate range 45 to 106 bpm, average heart rate 69 bpm. First-degree AV block with brief episodes of winky block noted. There was no significant pauses, 12 episodes of atrial tachycardia
with isolated PACs and rare PVCs
Echo 2/10/09: EF 60% with mild pulmonary hypertension, RVSP 42 mmHg
Echo 03/26/24: EF 65 to 70%, normal RV size and function, mild MR, mild TR
EKG 03/27/24 reviewed: ST w/ first degree AVB
Plan:
-patient critically ill
-she underwent exploratory laparotomy, sigmoidectomy, creation of end colostomy 03/27/24
-remains intubated due to desat noted during NGT placement
-overnight patient was noted to have fever and elevated lactate. required restart of pressor support, LR bolus. on broad spectrum abx, ID following
-remains with frequent atach on review of tele. holding IV lopressor for now with hypotension requiring pressors. consider for IV amiodarone if HRs become rapid, however patient noted earlier this admission to have SB with 1st degree av block and
occasional wenckebach. she was on atenolol 25mg BID prior to admission.
-echo this admission with preserved LV function
-DNR code status. goal of care conversations ongoing pending clinical progress
HPI: 78-year-old woman past medical history as below who presents with worsening constipation, abdominal distention and nausea. Cardiology is consulted for bradycardia and second-degree AV block. Patient evaluated in the ED 3 days ago and was
diagnosed with constipation. Now returns with worsening symptoms and CT of the abdomen and pelvis revealed bowel obstruction for which GI and surgery are discussing potential stenting +/- ex lap. NG tube placed in the ER with greater than 1 L of
gastric contents suctioned, patient tells me with this she has had some improvement in her symptoms. In regards to her heart rate, we discussed that prior outpatient cardiac cath tech revealed second-degree AV block Mobitz type I in 2020. Telemetry
here also showing Mobitz, no high-grade AV block or significant pauses. Patient is not reporting any lightheadedness, dizziness or syncope to me. Her chest/epigastric discomfort seems to be related to her GI symptoms and is improving with NG tube
placement and decompression.
Progress Note - Adventure Challenge Instructor
Subjective
Date of Service: March 28, 2024
patient intubated
Objective
Labs:
03/28/24 13:03
03/28/24 13:03
Labs
Hgb 12.2 g/dL (12.0-16.0) 03/28/24 13:03
Hct 36.4 % (37.0-47.0) L 03/28/24 13:03
Plt Count 147 10^3/uL (130-400) D 03/28/24 13:03
PT 21.7 Sec (11.4-14.6) H 03/28/24 08:51
INR 1.91 03/28/24 08:51
APTT Cancelled 03/28/24 13:29
Sodium 136 mmol/L (135-145) 03/28/24 13:03
Potassium 3.0 mmol/L (3.5-5.1) L 03/28/24 13:03
BUN 32 mg/dl (7-17) H 03/28/24 13:03
Creatinine 1.4 mg/dL (0.6-1.0) H 03/28/24 13:03
Glucose 140 mg/dl (70-99) H 03/28/24 13:03
Troponins
03/28/24
08:51
Troponin I 0.149 H*
Vital Signs and I&O:
Vital Signs
Temp Pulse Resp BP Pulse Ox
98.8 F 80 14 59 97
03/28/24 16:14 03/28/24 14:50 03/28/24 14:50 03/28/24 14:00 03/28/24 14:58
Vital Signs
Temp Pulse Resp BP Pulse Ox
98.8 F 80 14 59 97
03/28/24 16:14 03/28/24 14:50 03/28/24 14:50 03/28/24 14:00 03/28/24 14:58
Intake & Output
03/26/24 03/27/24 03/28/24 09/07/24
07:59 07:59 07:59 07:59
Intake Total 1060 / 1060 700 / 700 3657.9 / 3948.4 5282.1 / 5282.1
Output Total 0 / 0 1392 / 1397 234 / 234
Balance 1060 / 1060 700 / 700 2265.9 / 2551.4 5048.1 / 5048.1
--- NOTE | 2024-03-28 16:49 | PTCARENOTE ---
All systems reassessed. Patient becomes restless during stimulation, Fentanyl bolus administered during turning and hygiene which caused drop in BP, gtts titrated per work order. Vent settings now 14/500/60%/8, lungs diminished bilaterally
throughout, suctioned twice w/ scant amounts of white sputum. Stoma purple/red with brownish yellow drainage, 'jim made aware of color. Raman draining yellowish/marguerite urine. Skin mottled and pale. Restraints remain on. Safe environment maintained.
Family at bedside.
[2024-03-28 16:57] LABS: Lactic Acid 4.7 mmol/L (0.7-2.0)
--- NOTE | 2024-03-28 17:03 | CON.ID ---
Consultation
-
Date/Time Consultation Requested: 03/28/2024 1121
Date/Time Consultation Performed: 03/28/2024 1645
Requesting Provider: Karla Kim
Performing Provider: Dr. Zamarripa
Reason for Consultation: Septic shock; fever
Chief Complaint / Past History
History of Present Illness
Ivan Shoemaker is a 78-year-old female being evaluated at the request of Karla Kim in regards to septic shock. History is obtained from chart review alone as patient is currently sedated and intubated.
The patient initially presented to [facility] on 03/24/2024. She had been seen 3 days earlier when she was evaluated for constipation. She was discharged, but returned after continued difficulty with bowel movements associated with decreased
appetite and with nausea. She also admitted to increased abdominal distention. She was found to have obstipation and evaluated by GI. She underwent colonoscopy with finding of sigmoid narrowing, with ultimate placement of a colonic stent.
Despite aggressive care, she developed necrosis around the stent, and yesterday required exploratory laparotomy, with a sigmoidectomy and creation of end colostomy. The patient initially was on pressors which were weaned down, but overnight has
required the reinstitution of pressor therapy. Additionally, she developed fevers to 103 degrees earlier this a.m., which at this point in time have come down. Currently she remains sedated and intubated.
Past History
Additional Past Medical History:
HTN
Anxiety
Additional Past Surgical History:
Appendectomy
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
Right TKR
Allergy History:
amoxicillin [From Augmentin] Allergy (Verified 03/24/24 08:30)
Hives
lisinopril Allergy (Verified 03/24/24 08:30)
Hives
Sulfa (Sulfonamide Antibiotics) Allergy (Verified 03/24/24 08:30)
Rash
Medications Reviewed: Yes
Current Antibiotics:
Cefepime 1 g IV every 8 hours (d#2)
Metronidazole 500 mg IV every 8 hours (d#2)
Vancomycin (dosing per pharmacy (d#2)
Social History
Tobacco: Non-Smoker
Alcohol: None
Drug: None
Personal:
Living: With Family
Employment: Retired
Family History
Family History: Not Pertinent
Review of Systems
Vital Signs
Temp Pulse Resp BP Pulse Ox
98.8 F 80 14 93/59 97
03/28/24 16:14 03/28/24 14:50 03/28/24 14:50 03/28/24 14:00 03/28/24 14:58
Physical Exam
Physical Exam
Constitutional: No Acute Distress, Comfortable, Acutely Ill and Toxic
Eyes: No Conjunctival Hemorrhage and Sclera Anicteric
Oral: Other (EET tube in place)
Cardiovascular: Regular Rate and S1/S2; Negative S3/S4
Pulmonary: Coarse; Negative Wheezes or Rales
Gastrointestinal: Soft, Non Distended, Decreased Bowel Sounds and Other (Ostomy in place)
Extremities: Edema; Negative Erythema or Splinter Hemorrhage
Skin: Negative Rash or Jaundice
Neurological: Other (Sedated)
Lab / Diagnostic Study Results
03/28/24 13:03
03/28/24 13:03
Abs Immat Gran (auto) 0.1 10^3/uL (0-0.05) H 03/27/24 05:37
Absolute Neuts (auto) 14.2 10^3/uL (1.4-6.5) H 03/27/24 05:37
Absolute Lymphs (auto) 0.8 10^3/uL (1.2-3.4) L 03/27/24 05:37
Absolute Monos (auto) 1.5 10^3/uL (0.1-0.6) H 03/27/24 05:37
Absolute Basos (auto) 0.1 10^3/uL (0-0.2) 03/27/24 05:37
Total Counted 100 03/28/24 02:54
Immature Gran % 0.5 % (0-0.5) 03/27/24 05:37
Neutrophils % 85.4 % (42.2-75.2) H 03/27/24 05:37
Lymphocytes % 4.6 % (20.5-51.1) L 03/27/24 05:37
Monocytes % 8.7 % (1.7-9.3) 03/27/24 05:37
Eosinophils % 0.4 % (0-6) 03/27/24 05:37
Basophils % 0.4 % (0-2) 03/27/24 05:37
Abs Neuts (Manual) 4.1 10^3/uL (1.4-6.5) 03/28/24 02:54
Segmented Neutrophils 66 % (42-75) 03/28/24 02:54
Band Neutrophils 22 % (0-3) H 03/28/24 02:54
Lymphocytes (Manual) 6 % (20-51) L 03/28/24 02:54
Basophils (Manual) 2 % 03/28/24 02:54
PT 21.7 Sec (11.4-14.6) H 03/28/24 08:51
INR 1.91 03/28/24 08:51
Lactic Acid 4.7 mmol/L (0.7-2.0) H* 03/28/24 16:34
C-Reactive Protein 40.10 mg/L (0.0-10.00) H 03/26/24 05:13
Ur Squamous Epith Cells >30 /LPF (Few) 03/28/24 02:45
Microbiology Results
Micro:
03/28/24 04:34 C. difficile GDH Antigen & Toxins - Final
Feces/Stool Negative for toxigenic C.difficile
03/28/24 03:06 Respiratory Culture - Pending
Tracheal Aspirate Gram Stain - Preliminary
03/27/24 21:37 Nasal Screen MRSA (PCR) - Final
Nose MRSA not detected - performed by PCR methodology.
03/28/24 08:33 Blood Culture - Pending
Blood/Venous
03/28/24 04:34 Salmonella/Shigella Culture - Pending
Feces/Stool Campylobacter Culture - Pending
Shiga Toxin Test - Pending
03/28/24 02:45 Urine Culture - Pending
Urine
03/28/24 03:03 Blood Culture - Pending
Blood/Venous
Imaging:
03/26/24 CT abdomen/pelvis with contrast: Placement of sigmoid colon stent in the interval since prior study. Rectal contrast administered, approximately 300-400 cc. High attenuation contrast density seen within the rectum extending to the distal
portion of the stent, no definitive rectal contrast seen at the level of the sigmoid stent. Slightly high attenuation density although less dense than contrast in the rectum seen in the remainder of the mildly dilated large bowel. These findings
would suggest sigmoid stent patency although it is difficult to exclude that the high attenuation density within the colon proximal to the sigmoid is residual oral contrast from CT of March 24, 2024.
Assessment / Plan
Clinical sepsis/septic shock
Marked leukocytosis; ?Leukemoid reaction
Lactic acidosis
S/p sigmoidectomy with end colostomy creation
Recommendations:
Blood cultures currently pending. C. difficile testing negative. MRSA screen negative.
Consolidate antibiotics to meropenem 500 mg IV every 6 hours.
Continue with pressor therapy to maintain MAP greater than 65.
Trend white count. Trend fever curve.
Continue with supportive measures.
Follow cultures.
Further recommendations as additional data is returned.
Patient critically ill on pressor therapy in intensive care unit.
[2024-03-28] MEDS: MERREM 500 MG IV (17:36)
[2024-03-28 20:38] LABS: Lactic Acid 3.6 mmol/L (0.7-2.0)
--- NOTE | 2024-03-28 21:10 | PTCARENOTE ---
Assumed care of pt. approx 1899.
Remains intubated and sedated. MAP being maintained W/ Norepi X2, and vasopressin, Monroe turned off during dayshi.
placed on heparin gtt during , 1999 labs revealed supratherapeutic gtt held.
sedation being managed with DEX, Fentanyl.
Colorectal surgery rounded on patient, reports stoma is appearing dusky, which he expected due to vasopressor use. no new orders.
Decreased urine output, colorectal surgery made aware. no new orders.
[2024-03-28 21:11] LABS: APTT > 200 Sec (23.4-35.0)
[2024-03-28 21:25] LABS: Blood Urea Nitrogen 29 mg/dl (7-17); Calcium 6.5 mg/dl (8.4-10.2); Carbon Dioxide 15 mmol/L (22-30); Chloride 109 mmol/L (98-107); Estimated Creatinine Clearance 53 ml/min; Glucose 129 mg/dl (70-99); Potassium 3.6 mmol/L (3.5-5.1); Sodium 137 mmol/L (135-145); eGFR 57.66
--- NOTE | 2024-03-28 22:24 | PTCARENOTE ---
labs completed 2008 --> resulted 2124.
Resulted given to ICU VANESA, new orders placed.
As of 2224, awaiting pharmacy to send up medications.
[2024-03-28] MEDS: SODIUM BICARBONATE 1150 MEQ IV (22:31)
[2024-03-28] MEDS: CALCIUM GLUCONATE 130 MG IV (22:37)
[2024-03-28] MEDS: KCL 160 MEQ IV (22:40)
[2024-03-29] MEDS: SUBLIMAZE 50 MCG IV (00:02)
[2024-03-29] MEDS: ATIVAN 1 MG IV (00:03)
--- NOTE | 2024-03-29 00:09 | PTCARENOTE ---
Addendum entered by Arnaldo Abraham RN 03/29/24 00:12:
Labs revealed ca, and K needing lyte replt.
3G ca replt
20meq K
Bicarb on serum chem revealed 15, LR changed to Bicarb gtt.
Original Note:
pt. RASS noted to be 3, CPOT 8. PRNs given see MAR, fentanyl gtt increased per protocol.
Weaning down Norepi, heparin gtt restarted.
starting to autodiuresis, output past hour over 250.
[2024-03-29] MEDS: LEVOPHED 258 MG IV ×2 (01:24→16:21)
[2024-03-29] MEDS: SUBLIMAZE 100 IV ×4 (01:37→23:15)
[2024-03-29] MEDS: MERREM 500 MG IV ×3 (01:44→17:45)
[2024-03-29] MEDS: STERILE WATER FOR INJECTION 10 ML IV ×3 (01:45→17:44)
[2024-03-29 02:36] LABS: APTT > 200 Sec (23.4-35.0)
[2024-03-29] MEDS: PITRESSIN 100 IV ×2 (03:13→10:06)
[2024-03-29] MEDS: PRECEDEX 100 IV ×2 (03:32→10:33)
--- NOTE | 2024-03-29 03:34 | PTCARENOTE ---
Stoma appears to have gone from dusky to more blackened, ICU VANESA aware.
Titrating down Norepi, see titration flowsheet for details.
Heparin again remains greater than 200, gtt held, provider informed.
[2024-03-29] MEDS: OFIRMEV 100 IV ×2 (04:03→10:15)
[2024-03-29 04:15] LABS: B.E. -1.6 mmol/L; HCO3 21.1 mmol/L (21-28); O2 Saturation % 99.8 % (94-98); PCO2 29 mmHg (32-35); PO2 142 mmHg (83-108); pH 7.47 (7.35-7.45)
[2024-03-29 04:53] LABS: Hematocrit 35.3 % (37.0-47.0); Hemoglobin 12.1 g/dL (12.0-16.0); Mean Corp Hgb Conc. 34.3 g/dL (33.0-37.0); Mean Corpuscular Hgb 28.9 pg (27.0-31.0); Mean Corpuscular Volume 84.2 fL (81.0-99.0); Red Blood Cell Count 4.19 10^6/uL (4.20-5.40); Red Cell Dist. Width 14.5 % (11.5-14.5); White Blood Cell Count 45.4 10^3/uL (4.8-10.8)
[2024-03-29 04:56] LABS: Mean Platelet Volume 12.1 fL (7.4-10.4); Platelet Count 78 10^3/uL (130-400)
[2024-03-29 05:11] LABS: ALT (SGPT) 31 U/L (0-35); AST (SGOT) 55 U/L (14-36); Albumin 1.7 g/dl (3.5-5.0); Alkaline Phosphatase 72 U/L (38-126); Blood Urea Nitrogen 30 mg/dl (7-17); Calcium 7.1 mg/dl (8.4-10.2); Carbon Dioxide 21 mmol/L (22-30); Chloride 103 mmol/L (98-107); Direct Bilirubin 0.5 mg/dl (0.0-0.4); Estimated Creatinine Clearance 49 ml/min; Glucose 116 mg/dl (70-99); Magnesium 2.2 mg/dl (1.6-2.3); Potassium 3.7 mmol/L (3.5-5.1); Sodium 136 mmol/L (135-145); Total Bilirubin 0.8 mg/dl (0.2-1.3); Total Protein 3.6 g/dl (6.3-8.2); eGFR 51.43
[2024-03-29 05:13] LABS: Vancomycin Random 9.6 ug/ml
[2024-03-29] MEDS: SODIUM BICARBONATE 1150 MEQ IV (05:17)
[2024-03-29 06:00] VITALS: BMI 31.6
[2024-03-29] MEDS: CALCIUM GLUCONATE 100 IV (06:13)
--- NOTE | 2024-03-29 08:03 | W.PN.INTV ---
Today's Communication / Plan
Recommendations
Kind ventilation
Vasopressors
Wean off vasopressin
NG tube
Serial abdominal exams
Closely monitor stoma for any worsening duskiness
Surgery recs appreciated
May need TPN
Lightly sedate with SAT/SBT if clinically appropriate, reassessing daily
Goal SpO2 >90-94%; MAP >65
Guarded prognosis -family updated. If additional surgery is needed they will likely withdraw care
Assessment
-
Impression:
-Acute respiratory failure with hypoxia on mechanical ventilation
-Large bowel obstruction with severe sigmoid colon stenosis s/p sigmoid stent (placed 03/25/2024) with subsequent ex lap with sigmoidectomy and colostomy creation (OR date: 03/27/2024)
-Suspected ischemic colitis (per sigmoidoscopy findings on03/27/2024) currently on heparin drip
-Septic shock
-Lactic acidosis
-JOSEF (baseline Cr: 0.7)
-Hypoalbuminemia
-Moderate pulmonary hypertension (via TTE from 04/15 with PASP: 43 assuming an RAP of 3 mmHg)
-Bilateral lower lobe pneumonia due to aspiration
-Abnormal urinalysis with possible UTI
-Acute thrombocytopenia with concern for JEAN-PAUL (4T score: 6)
-Second-degree Mobitz type I AV block
-Essential hypertension
-Hyperlipidemia
-Diverticulosis
-Sliding hiatal hernia
-Anxiety and depression
Plan:
-Large bowel obstruction - s/p exploratory laparotomy and creation of a colostomy on 03/27/2024
Patient presented on 03/24/2024 with abdominal pain, nausea, and constipation for a week, had worsening abdominal distention on 03/27/2024 and a NGT was placed and had a flexible sigmoidoscopy conducted showing possible ischemic bowel in the setting of
severe sigmoid colon stenosis s/p 22 mm x 6 cm stent placement (03/25/2024 via colonoscopy) and subsequently went to the OR for exploratory laparotomy and creation of colostomy on 03/27/2024
Colorectal surgery and gastroenterology continue to follow - recs appreciated
Keep NGT to LCWS
If additional surgery is needed, family will likely withdraw care
-Septic shock
Sources include bowel and lung (b/l LL pneumonia); also UTI possible as well
Patient remains intubated and is Tapia status -monitor I/Os
Continue mechanical ventilation with daily SAT/SBT if clinically appropriate
Neurochecks while on sedation with goal RASS 0 to -2; continue light sedation
Titrate FiO2 + PEEP to maintain SpO2 >90-94%; keep plateau pressure <30
Titrate vasopressors to keep MAP>65
Give albumin 25g 25% given her albumin level is <2
Trend lactate until <2mmol/L
Stop bicarb gtt as she is now alkalemic as of today's ABG
Continue antibiotics per ID --> now on meropenem + micafungin s/p cefepime/Flagyl since 03/27 - 03/28 + IV vancomycin on 03/27
Follow up blood cultures (collected 03/28); respiratory culture from 03/28/2024 growing GNR � follow-up species/sensitivities
Keep BG 140-180mg/dL
Start pepcid for stress ulcer ppx
-Thrombocytopenia
Concern for JEAN-PAUL as 4T score is 6
Change heparin drip to argatroban and consult hematology
Continue to trend platelet count and transfuse if needed to maintain plt>20k; keep Hb>7g/dL
-JOSEF
Baseline creatinine about 0.7
Continue to avoid nephrotoxic agents and trend sCr daily, monitor UOP with Tapia catheter; remove tapia once JOSEF resolves and pressor requirements stabilize, ideally once she is off pressors completely
-Second-degree Mobitz type I AV block
Continue IV metoprolol with hold parameters; goal HR<100
Continuous telemetry
Cardiology reviewed telemetry and was under the impression that the patient had sinus rhythm/sinus bradycardia and first-degree AV block with Wenckebach rarely.
Cardiology recs appreciated
-Essential hypertension
Hold anti-HTN meds for now as pt in shock and on vasopressors
-Hyperlipidemia
Resume statin once she can start taking PO meds and tube feeds, which willl be deferred to surgery
-Diverticulosis
Recommend patient follows up with PCP in the outpatient setting upon discharge
-Sliding hiatal hernia
Recommend patient follows up with PCP in the outpatient setting upon discharge
-Anxiety and depression:
Stable, continue to monitor
Ativan adjusted to every 4 hours
DVT prophylaxis: heparin gtt --> changing to argatroban given concern for JEAN-PAUL
DNR status
Critical care statement: A total of 41 minutes of critical care time was provided for this patient today. This includes management of unstable vital signs, evaluation of the patient at bedside, reviewing the patient's pertinent medical records
including radiographs, microbiology, laboratory evaluations, and discussion with primary team, consultants, pharmacy, nutrition, physical therapy, case management, charge nurse, critical care nursing, and respiratory therapy.
Subjective Dataa
Subjective Data
Date of Service:
Date of Service: March 29, 2024
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
Subjective:
Patient was seen and evaluated today at bedside. Remains in septic shock however improvement with vasopressor requirements. Earlier this morning she was on Levophed at 29mcg/min, and during my evaluation she was down to 5mcg/min. Also on
vasopressin at 0.04 units/min, heparin drip, bicarb drip at 150 cc/hr and Precedex at 0.6mcg/kg/hr. she remains sedated on fentanyl at 150mcg/hr, and when sedation is lowered and she is stimulated, she does not follow commands and she gets very
agitated. She has been febrile since last night with Tmax of 101.7 �F this morning. She is currently intubated on AC/CMV at 14/500/50%/5, breathing at 14 breaths/min, with PIP: 23 cmH2O and VTe 474 mL. Platelet count dropping this morning, he is
currently 78. Colostomy stoma appears dusky. NGT on LCWS. During my evaluation, heart rate 61, BP 129/58 and SpO2 97%.
Patient's children were updated at bedside.
Review of Systems
General: Unobtainable - Sedation
Objective Data
Data Reviewed
Vital Signs / I&O / Oxygen:
Vital Signs
Temp Pulse Resp BP Pulse Ox
101.3 F H 61 14 89/58 97
03/29/24 06:00 03/29/24 08:20 03/29/24 08:20 03/28/24 15:00 03/29/24 08:20
Intake and Output
03/28/24 03/29/24 03/30/24
06:59 06:59 06:59
Intake Total 3367.4 / 3657.9 7820.2 / 8132.2 767.5 / 767.5
Output Total 1392 / 1392 2344 / 2444 275 / 275
Balance 1975.4 / 2265.9 5476.2 / 5688.2 492.5 / 492.5
SaO2 [A/C] 97
SaO2 97
Nasal Cannula flow liters per 5
minute
Physical Exam
General: Respiratory Distress (negative) and Sweats
HEENT: Normocephalic and Anicteric
Cardiovascular: Peripheral Edema (negative) and Other (normal heart rate)
Respiratory: Wheeze (negative), Rhonchi (negative), Non-Labored Respirations, ET Tube and Other (Mechanical breath sounds heard bilaterally)
GI: Soft, Non Distended, Non Tender, NG Tube and Other (Hypoactive bowel sounds)
Neurology: Other (Sedated; pupils are +1 bilaterally and sluggish)
Skin: Warm, Dry and Cyanosis (negative)
Labs/Micro/Reports
Lab Data
03/29/24 04:04
03/29/24 04:04
Laboratory Results
03/28/24 03/28/24 03/29/24
13:29 20:09 01:48
APTT Cancelled > 200 H* > 200 H*
pH
pCO2
pO2
HCO3
O2 Delivery Level
03/29/24 03/29/24
04:04 08:04
APTT 101.1 H
pH 7.47 H
pCO2 29 L
pO2 142 H
HCO3 21.1
O2 Delivery Level
Microbiology
03/28/24 02:45 Urine Urine Culture - Final
NO GROWTH
03/28/24 04:34 Feces/Stool Salmonella/Shigella Culture - Preliminary
Culture in Progress
03/28/24 04:34 Feces/Stool Campylobacter Culture - Preliminary
Culture in Progress
03/28/24 03:06 Tracheal Aspirate Respiratory Culture - Preliminary
Gram negative bacilli
03/28/24 03:06 Tracheal Aspirate Gram Stain - Preliminary
03/28/24 08:33 Blood/Venous Blood Culture - Preliminary
No Growth in 24 hours- Final report to follow
03/28/24 03:03 Blood/Venous Blood Culture - Preliminary
No Growth in 24 hours- Final report to follow
03/28/24 04:34 Feces/Stool C. difficile GDH Antigen & Toxins - Final
Negative for toxigenic C.difficile
03/27/24 21:37 Nose Nasal Screen MRSA (PCR) - Final
MRSA not detected - performed by PCR methodology.
--- NOTE | 2024-03-29 08:11 | W.PN.ID1 ---
Date of Service
Date of Service: March 29, 2024
Today's Communication
Continue meropenem. Add micafungin.
Assessment / Plan
Clinical sepsis/septic shock
Marked leukocytosis
-Persists
Fevers
Lactic acidosis
S/p sigmoidectomy with end colostomy creation
Recommendations:
Blood cultures currently pending. C. difficile testing negative. MRSA screen negative.
Continue meropenem 500 mg IV every 6 hours.
Given ongoing leukocytosis, will add micafungin.
Continue with pressor therapy to maintain MAP greater than 65.
Trend white count. Trend fever curve.
Continue with supportive measures.
Follow cultures.
Further recommendations as additional data is returned.
Patient critically ill on pressor therapy in intensive care unit. Overall outlook guarded.
����������������������������������������������������������
Chief Complaint
-: Clinical Sepsis
Subjective / Review of Systems
Patient seen and examined. Remains intubated, on vent and on pressors at this time, although pressors are being weaned.
Review of Systems: Fever
Vital Signs / Physical Exam
Vital Signs
Vital Signs
Temp Pulse Resp BP Pulse Ox
101.3 F H 79 14 89/58 97
03/29/24 06:00 03/29/24 06:15 03/29/24 06:15 03/28/24 15:00 03/29/24 06:15
Physical Exam
Constitutional: Acutely Ill and Toxic
Head: Normocephalic
Eyes: Sclera Anicteric
Oropharyngeal: Other (ET tube in place.)
Cardiovascular: S1/S2; Negative S3/S4
Pulmonary: Coarse
Gastrointestinal: Soft, Distended, Decreased Bowel Sounds (No bowel sounds auscultated.) and Other (Ostomy in place.)
Extremities: Edema and Cyanosis; Negative Erythema
Wound: Other (Midline abdominal wound with strikethrough on bandage.)
Objective Data
Lab Data
Lab Results
03/29/24 04:04
03/29/24 04:04
PT 21.7 Sec (11.4-14.6) H 03/28/24 08:51
INR 1.91 03/28/24 08:51
APTT > 200 Sec (23.4-35.0) H* 03/29/24 01:48
Estimated Creat Clear 49 ml/min 03/29/24 04:04
Lactic Acid 3.6 mmol/L (0.7-2.0) H 03/28/24 20:09
Total Bilirubin 0.8 mg/dl (0.2-1.3) 03/29/24 04:04
AST 55 U/L (14-36) H 03/29/24 04:04
ALT 31 U/L (0-35) 03/29/24 04:04
Alkaline Phosphatase 72 U/L (38-126) 03/29/24 04:04
C-Reactive Protein 40.10 mg/L (0.0-10.00) H 03/26/24 05:13
Most recent labs reviewed.
Micro Results:
03/28/24 03:03 Blood Culture - Preliminary
Blood/Venous No Growth in 24 hours- Final report to follow
03/28/24 04:34 C. difficile GDH Antigen & Toxins - Final
Feces/Stool Negative for toxigenic C.difficile
03/28/24 03:06 Respiratory Culture - Pending
Tracheal Aspirate Gram Stain - Preliminary
03/27/24 21:37 Nasal Screen MRSA (PCR) - Final
Nose MRSA not detected - performed by PCR methodology.
03/28/24 08:33 Blood Culture - Pending
Blood/Venous
03/28/24 04:34 Salmonella/Shigella Culture - Pending
Feces/Stool Campylobacter Culture - Pending
Shiga Toxin Test - Pending
03/28/24 02:45 Urine Culture - Pending
Urine
Imaging:
03/26/24 CT abdomen/pelvis with contrast: Placement of sigmoid colon stent in the interval since prior study. Rectal contrast administered, approximately 300-400 cc. High attenuation contrast density seen within the rectum extending to the distal
portion of the stent, no definitive rectal contrast seen at the level of the sigmoid stent. Slightly high attenuation density although less dense than contrast in the rectum seen in the remainder of the mildly dilated large bowel. These findings
would suggest sigmoid stent patency although it is difficult to exclude that the high attenuation density within the colon proximal to the sigmoid is residual oral contrast from CT of March 24, 2024.
[2024-03-29 08:27] LABS: APTT 101.1 Sec (23.4-35.0)
--- NOTE | 2024-03-29 08:30 | PTCARENOTE ---
recd pt 0715 handoff at bedside, ETT to vent tolerating current settings. no response to voice, did grimace with oral care, eyes flicker, assessed as noted. NG irrigated, thick viscous drainage. colostomy stoma dusky, dark, center of stoma is
deep purple. restrained for ETT safety. non-purposeful, restless. gtts as noted, see documentation for titrations. calcium repletion completed, heparin as noted. PTT sent and pending. daughter bedside, updated.
--- NOTE | 2024-03-29 09:45 | W.PN.CARDCBS ---
Today's Communication / Plan
-
Telemetry with brief atrial tachycardia
Unable to treat due to hypotension requiring pressors
Family considering comfort care but want to await possible response to antibiotics
Impression / Plan
-
PCP: Dr. Cooper
Traveling Electrician: Cristiana
Assessment:
Presented 03/24/2024 with abdominal pain, nausea and constipation x 1 wk
Large bowel obstruction with possible ischemic bowel
Status post exploratory laparotomy, sigmoidectomy, creation of end colostomy 03/27/24
Hypotension requiring pressors
Shock suspected secondary to sepsis
Atrial tachycardia
Sinus rhythm with first-degree AV block with intermittent second-degree AV block Mobitz type I
HTN
Hyperlipidemia
Palpitations
Family history of premature CAD
Anxiety
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
DNR
3-day Bardy monitor completed 11/20/2020: Sinus rhythm with heart rate range 45 to 106 bpm, average heart rate 69 bpm. First-degree AV block with brief episodes of winky block noted. There was no significant pauses, 12 episodes of atrial tachycardia
with isolated PACs and rare PVCs
Echo 09/01/08: EF 60% with mild pulmonary hypertension, RVSP 42 mmHg
Echo 03/26/24: EF 65 to 70%, normal RV size and function, mild MR, mild TR
EKG 03/27/24 reviewed: ST w/ first degree AVB
Plan:
She remains critically ill on pressors
Infectious disease has broaden antibiotic coverage
She is not responsive to commands
Telemetry with brief episodes of atrial tachycardia
Unable to treat due to hypotension requiring pressors except for possibly adding amiodarone but no need at present
Family assessing possible comfort care but want to wait till possible response to antibiotic
Discussed with nursing and family at bedside in detail
HPI: 78-year-old woman past medical history as below who presents with worsening constipation, abdominal distention and nausea. Cardiology is consulted for bradycardia and second-degree AV block. Patient evaluated in the ED 3 days ago and was
diagnosed with constipation. Now returns with worsening symptoms and CT of the abdomen and pelvis revealed bowel obstruction for which GI and surgery are discussing potential stenting +/- ex lap. NG tube placed in the ER with greater than 1 L of
gastric contents suctioned, patient tells me with this she has had some improvement in her symptoms. In regards to her heart rate, we discussed that prior outpatient rn cardiac rehab revealed second-degree AV block Mobitz type I in 2020. Telemetry
here also showing Mobitz, no high-grade AV block or significant pauses. Patient is not reporting any lightheadedness, dizziness or syncope to me. Her chest/epigastric discomfort seems to be related to her GI symptoms and is improving with NG tube
placement and decompression.
Progress Note - Traveling Electrician
Subjective
Date of Service: March 29, 2024
Unresponsive except to pain
Objective
Labs:
03/29/24 04:04
03/29/24 04:04
Labs
Hgb 12.1 g/dL (12.0-16.0) 03/29/24 04:04
Hct 35.3 % (37.0-47.0) L 03/29/24 04:04
Plt Count 78 10^3/uL (130-400) L D 03/29/24 04:04
PT 21.7 Sec (11.4-14.6) H 03/28/24 08:51
INR 1.91 03/28/24 08:51
APTT 101.1 Sec (23.4-35.0) H 03/29/24 08:04
Sodium 136 mmol/L (135-145) 03/29/24 04:04
Potassium 3.7 mmol/L (3.5-5.1) 03/29/24 04:04
BUN 30 mg/dl (7-17) H 03/29/24 04:04
Creatinine 1.1 mg/dL (0.6-1.0) H 03/29/24 04:04
Glucose 116 mg/dl (70-99) H 03/29/24 04:04
Troponins
03/28/24
08:51
Troponin I 0.149 H*
Vital Signs and I&O:
Vital Signs
Temp Pulse Resp BP Pulse Ox
101.3 F H 61 14 89/58 97
03/29/24 06:00 03/29/24 08:20 03/29/24 08:20 03/28/24 15:00 03/29/24 08:20
Vital Signs
Temp Pulse Resp BP Pulse Ox
101.3 F H 61 14 89/58 97
03/29/24 06:00 03/29/24 08:20 03/29/24 08:20 03/28/24 15:00 03/29/24 08:20
Intake & Output
03/27/24 03/28/24 03/29/24 03/30/24
06:59 06:59 06:59 06:59
Intake Total 700 / 700 3367.4 / 3657.9 7820.2 / 8132.2 767.5 / 767.5
Output Total 1392 / 1392 2344 / 2444 275 / 275
Balance 700 / 700 1975.4 / 2265.9 5476.2 / 5688.2 492.5 / 492.5
Physical Exam
Physical Exam
General: Unresponsive
Neck: Supple, no JVD, HJR, carotids +2 B/L, no bruits bilaterally.
Heart: Non displaced PMI, RRR, no murmurs, No S3, S4, no rubs.
Lungs: Scattered rhonchi
Extremities: No clubbing, cyanosis or edema bilaterally.
Neuro: Unresponsive
[2024-03-29] MEDS: MYCAMINE 105 MG IV (10:51)
--- NOTE | 2024-03-29 12:53 | PTCARENOTE ---
family updated, seen by Cali Gauthier Figueroa. turned. agitated when given substantial nursing care (turning). swats at staff. rests when undisturbed and face is relaxed, no grimace. IV fluids capped per MD.
--- NOTE | 2024-03-29 13:17 | W.PN.CRS1 ---
Today's Communication / Plan
-
as below
Assessment/Plan
-
78-year-old female with PMH of HTN, HLD, anxiety/depression and GERD who presents with concern of constipation and nausea associated with abdominal bloating. She first presented to [place] ED on 03/21/2024 due to significant nausea and no BMs for
4 days. At that time, a CT scan 'did not show bowel obstruction but did show large volume of loose liquid stools, no signs of significant inflammation'. She was discharged. She returned with persistent obstipation, bloating and discomfort. Her last
colonoscopy was >8yrs ago, likely in [place], reported as normal except for polyps and diverticulosis. In the ED, her WBC was 13.3 and a CTAP with PO contrast was done showing dilated small bowel and proximal colon up to the point of a sigmoid
obstruction, possibly a mass versus diverticular stricture. The cecum measuring 9 cm, no evidence of perforation or pneumatosis.
03/25 - successful placement of colonic stent, findings concerning for diverticular stricture, no obvious mass seen, no biopsies taken
03/27 - repeat flex sig showed stent in appropriate location, significant fibrinous exudate but no occulsion, mucosa healthy proximally, mucosa with subtle paleness and an ulcer, raising concern for ischemia; d/w Richard and Rudolph and flex sig aborted
for surgery
POD 2 Maksim's procedure, no ischemic appearance to bowel; no perforation or contamination; small bowel diffusely distented, colon mildly distended proximally
-on night of POD 0, developed worsening sepsis, fevers, hypotension requiring multiple pressors; unclear etiology, possible abdominal (possible ischemic vs other colitis) vs respiratory (had a possible aspiration event during NGT placement prior to
surgery)
WBC 45.4 from 43.5, Hb 12.1 from 12.2, CR 1.1 from 1.4, UOP 1.9 L, lactate downtrending
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
-Follow-up path
�NGT output 220 mL, ostomy producing 650 mL liquid stool; ostomy dusky but perfused and functioning
�No current concern for ileus, but would keep n.p.o. while on pressors, can consider TPN for nutritional support
�Septic shock; appreciate line tender
�Continue vent and pressor support; wean as tolerated
�Continue sedation and pain control
�Unable to tolerate CTA due to JOSEF, started heparin drip empirically for possible thromboembolic event to the bowel versus elsewhere; no concern for bleeding at this point
� Discussed with the patient's daughter and son; prognosis is guarded; concerning her GI tract, it appears functional and therefore seems less likely the cause of her persistent sepsis; unfortunately, we do not have a better alternative explanation;
she may have had in insult to the abdomen immediately postoperatively, such has mesenteric ischemia, but this seems to have improved, possibly due to the hep gtt vs broader coverage with abx; it may have been related to aspiration pneumonitis from
event after NGT, but hemodynamics and treatment response not consistent with this per intensvist; patient's daughter expressed concern to me about continued aggressive support as the patient preoperatively was a DNR and would not want prolonged life
support; will continue for this morning and appreciate the line tender's regarding opinion of immediate prognosis
Subjective Data
Procedure
03/27/2024- sigmoidectomy with colostomy
Subjective Data
Date of Service: March 29, 2024
No overnight events. Pressors have been weaned down to levo of 7, neois off, vaso at 0.04. She began spiking temps again overnight, up to 101.3. Her urine output improved and continues to make stool from the ostomy.
Objective Data
-
Vital Signs
Temp Pulse Resp BP Pulse Ox
102 F H 61 14 89/58 97
03/29/24 12:10 03/29/24 12:20 03/29/24 12:20 03/28/24 15:00 03/29/24 12:20
Intake & Output
09/01/1303/29/24 03/30/24
06:59 06:59 06:59
Intake Total 3367.4 / 3657.9 7820.2 / 8132.2 1071.2 / 1071.2
Output Total 1392 / 1392 2344 / 2444 625 / 625
Balance 1975.4 / 2265.9 5476.2 / 5688.2 446.2 / 446.2
Intake:
Oral fluids 0 / 0
IV fluids (Total) 2907.4 / 3197.9 6950.2 / 7162.2 811.2 / 811.2
LR bolus 750 / 750 3000 / 3000
LR@ 125 200 / 200
Lr 1,000 ml @ 125 mls/hr IV . 1000 / 1000
Q8H WILLAM Rx#:[id number]
Normosol 200 / 200
Nss 1,000 ml @ 125 mls/hr IV . 1125 / 1250 375 / 375
Q8H WILLAM Rx#:[id number]
Potassium Phos 130 / 195 130 / 130
Sterile Water For Injection 450 / 450
1000 ml 1,000 ml @ 150 mls/hr
IV .Q7H40M WILLAM with Sodium
Bicarbonate 150 Meq Rx#:
[id number]
calcium cloride 160 / 160
diprivan 10.8 / 10.8
fent 22.5 / 30.0 297.5 / 312.5 90 / 90
heparin 224 / 232 48 / 48
levophed 225.0 / 285.0 1323.4 / 1336.9 70.2 / 70.2
neosyn 66 / 90 264 / 264
precedex 18.1 / 27.1 144.3 / 157.8 81.0 / 81.0
vasopressin 192 / 204 72 / 72
IV piggybacks 400 / 400 750 / 850 200 / 200
Amount instilled into GI Tube ( 60 / 60 120 / 120 60 / 60
Total)
[place] Sump 60 / 60 120 / 120 60 / 60
Output:
Liquid stool amount 1000 / 1000 400 / 400 250 / 250
Colostomy 1000 / 1000 400 / 400 250 / 250
Gastrointestinal tube output ( 150 / 150 220 / 220
Total)
[place] Sump 150 / 150 220 / 220
Urine, Raman 242 / 242 1724 / 1824 375 / 375
Other:
Number of immeasurable emeses? 0
Lab Results
03/29/24 04:04
Physical Exam
-
General: Other (Sedated and intubated)
HEENT: Grossly Normal and Other (NGT-220 mL bilious)
Abdomen: Soft, Distended (Mildly distended minimally tympanic), Non Tender (No grimacing with palpation), No Guarding, No Rebound and Other (Ostomy with dark purple/ischemic changes at the mucocutaneous junction, dark red more centrally with liquid
stool in the appliance)
Wound: No Signs of Infection, Dressing in Place (Aquacel in place with stable strikethrough) and No Skin Erythema
--- NOTE | 2024-03-29 13:19 | W.PN.HOSP.TC ---
Today's Communication/Plan
-
Argatroban drip
cotn merrem/caspofungin
Needs less pressors
JOSEF improving - follow labs
Assessment / Plan
Assessment / Plan
78yo F with PMHx of 2nd degree AVB type 2, diverticulitis, HTN, HLD came with nausea and abd pain for 1 week. She was seen in ED [address] at that time showed constipation, but with decompressed sigmoid. At this time concern for large
bowel obstruction with transition point in the sigmoid. Found stricture 2/2 diverticulosis, had stent placed on 03/25/24, however remained in distress. Repositioning attempted on 03/27/24 and during sigmoidoscopy patient found ischemic bowel, so Davila
done by ColoRectal Sx. Patient also was found hypoxic on 03/27/24 after attempt to reposition the stent, possible aspiration pneumonia that later complicated with septic shock and managed in ICU as remained intubated postOP. ALso concern for HIT
A/P:
#Large bowel obstruction with ischemic bowel
NG for decompression
NPO
Colorectal Sx eval: s/p stent by GI on 03/25/24 - no biopsy taken as no signs of tumor. Patient has no significant resolution - to reposition stent on 03/27/24, then Davila done on the same date
IVF
Heparin drip
#Aspiration pneumonia with septic shock and acute hypoxic failure ands LLL consolidation on XR
#Leukemoid reaction
C.diff neg
Vent mgmt as per Pulm
Sedation vacation and wean off pressors
ID consult: merrem/caspofungin as of 03/28/24
Sputum Cx: GNB
#2nd degree Mobitz type 1 AVB
Incidental
avoid AVB agents
Cardio consult
#Essential HTN
use IV meds as needed to control BP
#HLD
#Anxiety d/o
cont meds when able to take PO
#Thrombocytopenia
High 4T score of 6
Argatroban drip, HIT Ab and Hem consult
#Diverticulosis
#Small hiatal hernia
#DJD
follow up with PCP upon d/c
#Hypokalemia
replete
DVT ppx hep drip
DNR/DNI
I have spent at least 57min reviewing chart, test results and direct aptient care
Anticipated Discharge: > 48 hours
Subjective/Interval History
-
Date of Service: March 29, 2024
Objective Data
-
Labs:
Laboratory Results
03/29/24 03/29/24 03/29/24
01:48 04:04 08:04
WBC 45.4 H*
Hgb 12.1
Hct 35.3 L
Plt Count 78 L D
PT
INR
APTT > 200 H* 101.1 H
HCO3 21.1
Sodium 136
Potassium 3.7
Chloride 103
Carbon Dioxide 21 L
BUN 30 H
Creatinine 1.1 H
Glucose 116 H
Calcium 7.1 L
Total Bilirubin 0.8
AST 55 H
ALT 31
Alkaline Phosphatase 72
03/29/24 03/29/24 03/29/24
13:01 15:00 20:00
WBC Pending
Hgb Pending
Hct Pending
Plt Count Pending
PT Pending
INR Pending
APTT Pending Pending
HCO3 Pending
Sodium
Potassium
Chloride
Carbon Dioxide
BUN
Creatinine
Glucose
Calcium
Total Bilirubin Pending
AST Pending
ALT Pending
Alkaline Phosphatase Pending
Vital Signs:
Vital Signs
Temp Pulse Resp BP Pulse Ox
102 F H 61 14 89/58 97
03/29/24 12:10 03/29/24 12:20 03/29/24 12:20 03/28/24 15:00 03/29/24 12:20
I&O
03/28/24 03/29/24 03/30/24
06:59 06:59 06:59
Intake Total 3367.4 / 3657.9 7820.2 / 8132.2 1071.2 / 1071.2
Output Total 1392 / 1392 2344 / 2444 625 / 625
Balance 1975.4 / 2265.9 5476.2 / 5688.2 446.2 / 446.2
Review of Systems
-
Unable to obtain full review of systems at this time due to: Patient Intubation
Physical Exam
-
General: Intubated
HEENT: Moist Mucous Membranes and [place] Conjunctivae
Respiratory: Clear to Auscultation
Cardiac: Regular Rhythm
GI: Soft, Nondistended and Ostomy (with brown stool)
Musculoskeletal: No Clubbing, No Cyanosis and No Edema
Skin: Warm
Neuro: Sedated
Psych: Calm
[2024-03-29 13:41] LABS: Hemoglobin 11.8 g/dL (12.0-16.0); Mean Corp Hgb Conc. 34.7 g/dL (33.0-37.0); Mean Corpuscular Volume 80.6 fL (81.0-99.0); Mean Platelet Volume 12.4 fL (7.4-10.4); Platelet Count 69 10^3/uL (130-400); Red Blood Cell Count 4.22 10^6/uL (4.20-5.40); Red Cell Dist. Width 14.5 % (11.5-14.5); White Blood Cell Count 39.9 10^3/uL (4.8-10.8)
[2024-03-29 13:48] LABS: INR 1.64; PT 19.3 Sec (11.4-14.6)
[2024-03-29 13:50] LABS: APTT 119.9 Sec (23.4-35.0)
[2024-03-29 13:54] LABS: Lactic Acid 2.5 mmol/L (0.7-2.0)
[2024-03-29 14:24] LABS: ALT (SGPT) 34 U/L (0-35); AST (SGOT) 71 U/L (14-36); Albumin 1.8 g/dl (3.5-5.0); Alkaline Phosphatase 117 U/L (38-126); Direct Bilirubin 0.4 mg/dl (0.0-0.4); Total Bilirubin 0.7 mg/dl (0.2-1.3); Total Protein 3.8 g/dl (6.3-8.2)
--- NOTE | 2024-03-29 14:28 | PTCARENOTE ---
PTT noted, Dr. Taylor notified, discussions with pharmacy. awaiting clarification of argatroban. heparin gtt off, turned, cooling blanket in place.
[2024-03-29] MEDS: ARGATROBAN 252.5 MG IV (14:48)
[2024-03-29] MEDS: NSS (PRESERVATIVE FREE) 8 ML IV (15:17)
[2024-03-29] MEDS: PEPCID 20 MG IV (15:17)
[2024-03-29] MEDS: FLEXBUMIN 100 IV ×2 (15:18→18:40)
--- NOTE | 2024-03-29 15:57 | PTCARENOTE ---
rhythm change, 12 lead, noted aflutter, see chart. Drs. Taylor and Anthony updated, no new orders recd at this time. while giving mouth care, pt moving arms as if to resist care, did not initially answer questions, then asked if she was angry at
which point she nodded very clearly several times yes. daughter now bedside. no other changes. levophed continuing 10 mcg/min.
[2024-03-29 16:10] VITALS: PULSE 51
[2024-03-29 17:22] LABS: APTT 120.6 Sec (23.4-35.0)
[2024-03-29 17:28] VITALS: PULSE 43
[2024-03-29 18:00] VITALS: PULSE 43
--- NOTE | 2024-03-29 21:18 | PTCARENOTE ---
Addendum entered by Arnaldo Abraham RN 03/29/24 22:14:
ptt RESULTED TARGET RANGE for agatroban gtt. Next ptt 0130.
Original Note:
Assumed care of pt. approx 1900.
Remains intubated/sedated.
Developed HIT, heparin switched to Argatroban. Trending ptt q4.
BP managed w/ just norepi x2, VASO turned off on dayshi.
Colorectal surgery rounded, stoma is appearing more dusky but having output.
Persisting fevers, tmax 101.3.
[2024-03-29 21:38] LABS: B.E. 2.2 mmol/L; O2 Saturation % 99.1 % (94-98); PCO2 32 mmHg (32-35); PO2 99 mmHg (83-108)
[2024-03-29 21:50] LABS: APTT 81.4 Sec (23.4-35.0)
[2024-03-29 21:51] LABS: Lactic Acid 1.7 mmol/L (0.7-2.0)
--- NOTE | 2024-03-30 00:13 | PTCARENOTE ---
Remains bradycardic, range from 39-50. Periods of atrial flutter, and inter. PVCs when in sinus.
Norepi remains on, titrating as appropriate.
Stoma appearance unchanged from last assessment.
[2024-03-30] MEDS: MERREM 500 MG IV (01:48)
[2024-03-30] MEDS: STERILE WATER FOR INJECTION 10 ML IV (01:48)
[2024-03-30] MEDS: ATIVAN 1 MG IV (01:49)
[2024-03-30 01:50] LABS: Hematocrit 28.9 % (37.0-47.0); Hemoglobin 10.2 g/dL (12.0-16.0); Mean Corp Hgb Conc. 35.3 g/dL (33.0-37.0); Mean Corpuscular Hgb 28.2 pg (27.0-31.0); Mean Corpuscular Volume 79.8 fL (81.0-99.0); Mean Platelet Volume 12.1 fL (7.4-10.4); Platelet Count 54 10^3/uL (130-400); Red Blood Cell Count 3.62 10^6/uL (4.20-5.40); Red Cell Dist. Width 14.2 % (11.5-14.5)
[2024-03-30 01:58] LABS: APTT 78.6 Sec (23.4-35.0); Fibrinogen 591 MG/DL (199-459)
--- NOTE | 2024-03-30 02:04 | W.PN.UPDATE ---
Update Note
Progress Note Update
03/30/24
0130- RN noted bleeding around midline abdominal dressing site, surgical dressing saturated and bleeding noted on patient's gown and top/bottom of the dressing. Bloody serosang drainage noted in colostomy bag as well. No acute changes in blood
pressure, still on levophed gtt for hypotension. No tachycardia or bleeding noted elsewhere. Dr. Taylor, webbing weaver updated, recommendations received: stop Argatroban gtt now, obtain labs CBC/PTT and fibrinogen, and update surgeon. Dr. Leiva,
general surgeon updated about blood drainage, instructed to reinforce dressing for now, agreed with labs and stopping Argatroban gtt for now, complete surgical dressing change in AM.
--- NOTE | 2024-03-30 02:11 | PTCARENOTE ---
Abdominal dressing saturated, bleeding through gown.
ICU VANESA notified, argatroban gtt on hold, coags/CBC sent, dressing reinforced.
[2024-03-30 02:44] LABS: INR 3.08; PT 31.8 Sec (11.4-14.6)
[2024-03-30 02:46] LABS: APTT 64.9 Sec (23.4-35.0)
--- NOTE | 2024-03-30 03:40 | PTCARENOTE ---
Reinforced dressing remains C/D/I.
Hemodynamically stable on Norepi.
No change in prior patient assessment.
Surgery to round in AM for full dressing change.
[2024-03-30 04:46] LABS: B.E. 2.2 mmol/L; HCO3 24.5 mmol/L (21-28); O2 Saturation % 99.7 % (94-98); PCO2 30 mmHg (32-35); PO2 172 mmHg (83-108); pH 7.52 (7.35-7.45)
[2024-03-30 04:57] LABS: Hematocrit 30.1 % (37.0-47.0); Hemoglobin 10.5 g/dL (12.0-16.0); Mean Corp Hgb Conc. 34.9 g/dL (33.0-37.0); Mean Corpuscular Hgb 28.1 pg (27.0-31.0); Mean Corpuscular Volume 80.5 fL (81.0-99.0); Platelet Count 54 10^3/uL (130-400); Red Blood Cell Count 3.74 10^6/uL (4.20-5.40); Red Cell Dist. Width 14.1 % (11.5-14.5); White Blood Cell Count 38.2 10^3/uL (4.8-10.8)
[2024-03-30 05:13] LABS: Lactic Acid 1.7 mmol/L (0.7-2.0)
[2024-03-30 05:46] LABS: ALT (SGPT) 30 U/L (0-35); AST (SGOT) 58 U/L (14-36); Albumin 2.4 g/dl (3.5-5.0); Alkaline Phosphatase 71 U/L (38-126); Blood Urea Nitrogen 31 mg/dl (7-17); Calcium 7.6 mg/dl (8.4-10.2); Carbon Dioxide 23 mmol/L (22-30); Chloride 102 mmol/L (98-107); Estimated Creatinine Clearance 60 ml/min; Glucose 98 mg/dl (70-99); Magnesium 2.5 mg/dl (1.6-2.3); Phosphorus 2.3 mg/dl (2.5-4.5); Potassium 3.5 mmol/L (3.5-5.1); Sodium 137 mmol/L (135-145); Total Bilirubin 0.9 mg/dl (0.2-1.3); Total Protein 4.1 g/dl (6.3-8.2); eGFR > 60.00
[2024-03-30 06:00] VITALS: BMI 31.6
[2024-03-30] MEDS: SUBLIMAZE 100 IV ×2 (07:20→13:46)
[2024-03-30] MEDS: KCL 160 MEQ IV (07:46)
[2024-03-30 08:57] LABS: % Immature Granulocytes 3.6 % (0-0.5); % Lymphocytes 3.1 % (20.5-51.1); % Monocytes 2.4 % (1.7-9.3); % Neutrophils 90.9 % (42.2-75.2); Absolute Immature Granulocytes 1.4 10^3/uL (0-0.05); Absolute Lymphocytes 1.2 10^3/uL (1.2-3.4); Absolute Monocytes 0.9 10^3/uL (0.1-0.6); Absolute Neutrophils 34.7 10^3/uL (1.4-6.5); Nucleated Red Blood Cells % 0 %
--- NOTE | 2024-03-30 09:01 | W.PN.INTV ---
Today's Communication / Plan
Recommendations
Family decided to transition to comfort care with terminal extubation
already saw patient
Continue with fentanyl drip, stop Precedex, and start prn Dilaudid + Ativan, raising frequency to [id number] prn
Motel Operator/Pulmonary service will now sign off. - we are available if there are any additional questions. Thank you for allowing us to be involved in the care of this patient.
Assessment
-
Impression:
-Acute respiratory failure with hypoxia on mechanical ventilation
-Large bowel obstruction with severe sigmoid colon stenosis s/p sigmoid stent (placed 03/25/2024) with subsequent ex lap with sigmoidectomy and colostomy creation (OR date: 03/27/2024)
-Suspected ischemic colitis (per sigmoidoscopy findings on03/27/2024) currently on heparin drip
-Septic shock
-Lactic acidosis - normalized as of 03/29/2024
-JOSEF (baseline Cr: 0.7)
-Hypoalbuminemia
-Moderate pulmonary hypertension (via TTE from 04/15 with PASP: 43 assuming an RAP of 3 mmHg)
-Bilateral lower lobe pneumonia due to aspiration with E. coli seen on respiratory culture
-Abnormal urinalysis with possible UTI
-Acute thrombocytopenia with concern for JEAN-PAUL (4T score: 6)
-Second-degree Mobitz type I AV block
-Essential hypertension
-Hyperlipidemia
-Diverticulosis
-Sliding hiatal hernia
-Anxiety and depression
Plan:
- Family interested in transitioning to comfort care. already saw the patient this morning. Will plan to give Dilaudid IVP X1, keep fentanyl drip on and terminally extubate with transition to comfort care measures.
-Large bowel obstruction - s/p exploratory laparotomy and creation of a colostomy on 03/27/2024
Patient presented on 03/24/2024 with abdominal pain, nausea, and constipation for a week, had worsening abdominal distention on 03/27/2024 and a NGT was placed and had a flexible sigmoidoscopy conducted showing possible ischemic bowel in the setting of
severe sigmoid colon stenosis s/p 22 mm x 6 cm stent placement (03/25/2024 via colonoscopy) and subsequently went to the OR for exploratory laparotomy and creation of colostomy on 03/27/2024
Colorectal surgery and gastroenterology continue to follow - recs appreciated
Keep NGT to LCWS --> remove NGT once transitioned to comfort care
-Septic shock
Sources include bowel and lung (b/l LL pneumonia); also UTI possible as well
Patient remains intubated and is Raman status -monitor I/Os
Planning to terminally extubate this morning
Pressors will be stopped
Abx will be stopped; she was on meropenem + micafungin s/p cefepime/Flagyl since 03/27 - 03/28 + IV vancomycin on 03/27
Follow up blood cultures (collected 03/28); respiratory culture from 03/28/2024 grew E. coli
Keep BG 140-180mg/dL
-Thrombocytopenia
Concern for JEAN-PAUL as 4T score is 6
Heparin drip was changed to argatroban and hematology consulted --> patient developed bleeding from colostomy overnight and argatroban is now stopped
No blood transfusions will be done as patient is being transitioned to comfort care
-JOSEF
Baseline creatinine about 0.7
Keep Raman catheter for comfort care measures
-Second-degree Mobitz type I AV block
Cardiology reviewed telemetry and was under the impression that the patient had sinus rhythm/sinus bradycardia and first-degree AV block with Wenckebach rarely.
Cardiology recs appreciated
-Essential hypertension
Hold anti-HTN meds
-Hyperlipidemia
Will not start statin given patient being transitioned to comfort care
-Diverticulosis
-Sliding hiatal hernia
-Anxiety and depression:
Continue to monitor
Ativan and will raise frequency to q30min prn
DVT prophylaxis: Heparin drip changed to argatroban yesterday given concern for JEAN-PAUL --> anticoagulation stopped due to development of GI bleed. Patient now being transitioned to comfort care.
DNR status
Patient being transitioned to comfort care with terminal extubation. Emotional support was provided to the family. Motel Operator/pulmonary service is available if there are any additional questions. Motel Operator/Pulmonary service will now sign off.
Thank you for allowing us to be involved in the care of this patient.
Total time spent today was 40 minutes for this encounter. Time includes reviewing laboratory test/imaging results, reviewing pertinent medical records, obtaining and reviewing medical history, performing an appropriate exam, ordering medications,
tests and procedures. Time also includes documentation of this encounter, coordinating patient care and communicating with other healthcare professionals. Total time does not include separately billed tests performed on this date of service.
Subjective Dataa
Subjective Data
Date of Service:
Date of Service: March 30, 2024
Chief Complaint: Motel Operator Follow Up
Subjective:
Patient seen and evaluated today at bedside. Bleeding from colostomy overnight and argatroban was stopped. Febrile last night at 8 PM to 101 �F. Family interested in transitioning to comfort care. She remains on FiO2 40%, PEEP 5, on Levophed at
6mcg/min, as well as Precedex 0.4mcg/kg/hr + fentanyl drip at 125mcg/hr.
Review of Systems
General: Unobtainable - Sedation
Objective Data
Data Reviewed
Vital Signs / I&O / Oxygen:
Vital Signs
Temp Pulse Resp BP Pulse Ox
100.1 F 58 14 89/58 98
03/30/24 07:00 03/30/24 09:20 03/30/24 09:20 03/28/24 15:00 03/30/24 09:20
Intake and Output
03/29/24 03/30/24 03/31/24
06:59 06:59 06:59
Intake Total 7820.2 / 8132.2 2047.9 / 2047.9 116.4 / 116.4
Output Total 2344 / 2444 2024 60 / 60
Balance 5476.2 / 5688.2 22.9 / 22.9 56.4 / 56.4
SaO2 [A/C] 97
SaO2 98
Nasal Cannula flow liters per 5
minute
Physical Exam
General: Respiratory Distress (negative) and Chills (negative)
HEENT: Normocephalic, Anicteric and Other (ETT in place)
Cardiovascular: Peripheral Edema (negative) and Other (normal heart rate)
Respiratory: Wheeze (negative), Rhonchi (negative), Non-Labored Respirations, ET Tube and Other (Mechanical breath sounds heard bilaterally)
GI: Soft, Non Distended, Non Tender, NG Tube, Other (Hypoactive bowel sounds) and Other (Colostomy in place)
Neurology: Other (Sedated; pupils are +1 bilaterally and sluggish)
Skin: Warm, Dry and Cyanosis (negative)
Labs/Micro/Reports
Lab Data
03/30/24 04:28
03/30/24 04:28
Laboratory Results
03/29/24 03/29/24 03/29/24
13:20 13:20 17:00
PT 19.3 H
INR 1.64
APTT Cancelled 119.9 H 120.6 H
pH
pCO2
pO2
HCO3
O2 Delivery Level
03/29/24 03/30/24 03/30/24
21:23 01:32 02:18
PT 31.8 H
INR 3.08
APTT 81.4 H 78.6 H 64.9 H
pH 7.50 H
pCO2 32
pO2 99
HCO3 25.0
O2 Delivery Level
03/30/24
04:28
PT
INR
APTT
pH 7.52 H
pCO2 30 L
pO2 172 H
HCO3 24.5
O2 Delivery Level
Microbiology
03/28/24 04:34 Feces/Stool Salmonella/Shigella Culture - Final
No Salmonella, Shigella, Aeromonas or Plesiomonas species
isolated.
03/28/24 04:34 Feces/Stool Campylobacter Culture - Final
No Campylobacter species isolated.
03/28/24 03:06 Tracheal Aspirate Respiratory Culture - Final
Escherichia coli
Escherichia coli#2
03/28/24 03:06 Tracheal Aspirate Gram Stain - Final
03/28/24 08:33 Blood/Venous Blood Culture - Preliminary
No Growth in 48 hours- Final report to follow
03/28/24 03:03 Blood/Venous Blood Culture - Preliminary
No Growth in 48 hours- Final report to follow
03/28/24 02:45 Urine Urine Culture - Final
NO GROWTH
03/28/24 04:34 Feces/Stool C. difficile GDH Antigen & Toxins - Final
Negative for toxigenic C.difficile
03/27/24 21:37 Nose Nasal Screen MRSA (PCR) - Final
MRSA not detected - performed by PCR methodology.
--- NOTE | 2024-03-30 09:09 | W.PN.ID1 ---
Date of Service
Date of Service: March 30, 2024
Today's Communication
Discontinue antibiotics at family's request.
Assessment / Plan
Clinical sepsis/septic shock
Marked leukocytosis
-Persists
Fevers
Lactic acidosis
S/p sigmoidectomy with end colostomy creation
Recommendations:
Blood cultures currently pending. C. difficile testing negative. MRSA screen negative.
Family (Daughter, Son) asked to speak with me regarding patient's overall condition. They understand the acuity of her illness and the high likelihood of mortality. They note that given her overall condition and condition should she survive this
acute episode, they note that she would not like to live.
They have asked that patient now be made comfort measures, and will be pursuing hospice.
They would like further antibiotics to be discontinued, which were I will do now.
Little more to offer from a Infectious Diseases standpoint.
Will see again at your request.
����������������������������������������������������������
Chief Complaint
-: Clinical Sepsis
Subjective / Review of Systems
Chart reviewed; events overnight noted.
Vital Signs / Physical Exam
Vital Signs
Vital Signs
Temp Pulse Resp BP Pulse Ox
100.1 F 44 14 89/58 97
03/30/24 07:00 03/30/24 06:30 03/30/24 06:30 03/28/24 15:00 03/30/24 07:44
Physical Exam
Constitutional: Acutely Ill
Oropharyngeal: Other (ET tube in place. NG tube in place to suction.)
Neurological: Other (Sedated)
Objective Data
Lab Data
Lab Results
03/30/24 04:28
03/30/24 04:28
PT 31.8 Sec (11.4-14.6) H 03/30/24 02:18
INR 3.08 03/30/24 02:18
APTT 64.9 Sec (23.4-35.0) H 03/30/24 02:18
Estimated Creat Clear 60 ml/min 03/30/24 04:28
Lactic Acid 1.7 mmol/L (0.7-2.0) 03/30/24 04:28
Total Bilirubin 0.9 mg/dl (0.2-1.3) 03/30/24 04:28
AST 58 U/L (14-36) H 03/30/24 04:28
ALT 30 U/L (0-35) 03/30/24 04:28
Alkaline Phosphatase 71 U/L (38-126) 03/30/24 04:28
C-Reactive Protein 40.10 mg/L (0.0-10.00) H 03/26/24 05:13
Most recent labs reviewed.
Micro Results:
03/28/24 04:34 Salmonella/Shigella Culture - Final
Feces/Stool No Salmonella, Shigella, Aeromonas or Plesiomonas species
isolated.
Campylobacter Culture - Final
No Campylobacter species isolated.
Shiga Toxin Test - Pending
03/28/24 03:06 Respiratory Culture - Final
Tracheal Aspirate Escherichia coli
Escherichia coli#2
Gram Stain - Final
03/28/24 08:33 Blood Culture - Preliminary
Blood/Venous No Growth in 48 hours- Final report to follow
03/28/24 03:03 Blood Culture - Preliminary
Blood/Venous No Growth in 48 hours- Final report to follow
03/28/24 02:45 Urine Culture - Final
Urine NO GROWTH
03/28/24 04:34 C. difficile GDH Antigen & Toxins - Final
Feces/Stool Negative for toxigenic C.difficile
03/27/24 21:37 Nasal Screen MRSA (PCR) - Final
Nose MRSA not detected - performed by PCR methodology.
Imaging:
03/26/24 CT abdomen/pelvis with contrast: Placement of sigmoid colon stent in the interval since prior study. Rectal contrast administered, approximately 300-400 cc. High attenuation contrast density seen within the rectum extending to the distal
portion of the stent, no definitive rectal contrast seen at the level of the sigmoid stent. Slightly high attenuation density although less dense than contrast in the rectum seen in the remainder of the mildly dilated large bowel. These findings
would suggest sigmoid stent patency although it is difficult to exclude that the high attenuation density within the colon proximal to the sigmoid is residual oral contrast from CT of March 24, 2024.
--- NOTE | 2024-03-30 09:20 | PTCARENOTE ---
recd pt handoff at bedside. systems, pumps, vent reviewed. family visiting. asking questions about keeping pt comfortable and requesting collet making machine operator. pastoral care notified, dynamometer tuner in to visit. ETT to vent tolerating settings until turning,
mouth care, then became quite rigid, angry, biting and uncooperative with care. BP initially to 220/130, levophed paused briefly until pt less agitated. dosage continues as documented. rest of assessment noted. LH weeping. abd dressing dry and
intact. Dr. Gonsalez and Marilou visited. Dr Taylor aware of current status and family request. questions answered, support given, awaiting further plan of care.
--- NOTE | 2024-03-30 09:31 | CON.ONC ---
Impression
Impression
- Acute thrombocytopenia
- Septic shock
- ischemic colitis s/p sigmoidectomy with diverting ostomy
Plan
Plan
- drop in platelet count from ~ 400K range to < 100K over 24 hour time period in the setting of worsening clinical status with hypotension, Temp to 103.0, rising lactate w/ c/f ongoing bowel ischemia and initiation of heparin gtt.
- several possible etiologies for acute thrombocytopenia including infection, abx, high risk for acute DIC. HIT. 4T score 4-5, intermediate. Agree with switching heparin to argatroban, HIT RUDDY pending. No evidence of new thrombosis. LE US
negative for DVT, lactate downtrended and now in normal range.
- plts today 54,000. mild oozing from lines this am otherwise no serious signs of bleeding.
- plan to transition to comfort care today so likely no additional lab monitoring planned or interventions recommended.
thank you for consultation.
Patient History
History of Present Illness
pt is a 78 yo F that presented on 03/24 with constipation x [address] on admission showed distal colonic obstruction located in the proximal sigmoid colon c/f mass vs diverticular stenosis. She was admitted for further management of SBO. Hematology
was consulted for acute thrombocytopenia.
She underwent colonoscopy on 03/25 which showed a benign appearing severe intrinsic stenosis within the sigmoid colon for which stent was placed. She had initial symptoms improvement and NGT was removed on 03/26. However she shortly then developed
abdominal pain, distention. Sigmoidoscopy revealed mucosal changes concerning for ischemic colitis distal to the stent. She underwent Exploratory laparotomy, sigmoidectomy, creation of end colostomy on 03/27. Pt was kept intubated after procedure due
to a desaturation with NGT placement earlier that day. Overnight 03/27-03/28 she spiked temp, became hypotensive and was started on abx (cefepime, vanco, meropenem), pressor support. Due to concern for possible worsening bowel ischemia with
thromboembolic events she was started on heparin gtt ~ 2pm on 03/28 (has been receiving ppx lovenox). Platelet trend: had been consistently in 300-400K range during early admission w/ drop from 409K after surgery on 03/27 to 225K in am 03/28 after acute
decompensation, 147K afternoon 03/28 then down to 78K in am 03/29. Due to possibility for HIT she was switched to Argatroban yesterday at ~ 3pm. HIT RUDDY pending. platelet count today 54,000. Hgb w/ mild downtrend over past 24 hours as well from 12.1
g/dl to 10.5 g/dl in setting of IVFs, drips, leukocytosis 38.2 today. fibrinogen high at 591. d-dimer, coags unreliable with recent ischemic event, AC drips. LFTs without evidence of significant shock liver (mild rise in AST). Pt remains intubated.
daughter at bedside and notifies me family has decided to withdrawal supportive interventions and transition to comfort care.
Past-Medical/Surgical History
Past Medical History: Reports Other
Additional Past Medical History:
Anxiety
Hypertension
Depression
Irritable bowel syndrome
Hypertension hyperlipidemia
Past Surgical History: Reports Other
Additional Past Surgical History:
Appendectomy
Hysterectomy
left knee replacement
Right eye cataract surgery
Patient Medication
�Medication �Instructions �Recorded �Confirmed �Last Taken �Type
atenolol 25 mg tablet 25 mg PO BID Blood Pressure 07/28/12 03/24/24 03/23/24 History
hydrochlorothiazide 25 mg tablet 25 mg PO DAILY Blood Pressure 07/28/12 03/24/24 03/23/24 History
aspirin 81 mg chewable tablet 81 mg PO DAILY Blood Clot 08/08/22 03/24/24 03/23/24 History
Prevention/Tx
alprazolam 0.25 mg tablet 0.25 mg PO BIDPRN PRN anxiety 03/24/24 03/24/24 03/23/24 16:00 History
escitalopram oxalate 5 mg tablet 5 mg PO DAILY Mental Health/Anxiety 03/24/24 03/24/24 03/23/24 16:00 History
rosuvastatin 5 mg tablet 5 mg PO QPM High Cholesterol 03/24/24 03/24/24 03/23/24 History
Active Medications
Generic Name Dose Route Start Last Admin
Trade Name Freq PRN Reason Stop Dose Admin
Famotidine 20 mg 03/30/24 22:00
Famotidine 20 Mg/2 Ml Vial IV 04/27/24 21:59
HS WILLAM
Fentanyl Citrate 50 mcg 03/27/24 23:34 03/29/24 00:02
Fentanyl (50 Mcg/Ml) 100 Mcg/2 Ml Ampul IV 04/10/24 23:33 50 mcg
[id number] PRN Administration
see protocol
Protocol
Hydralazine HCl 5 mg 03/24/24 17:27
Hydralazine 20 Mg/Ml Vial IV 04/21/24 17:26
Q6HPRN PRN
hypertension
Fentanyl Citrate 1,000 mcg in 100 mls @ 0 mls/hr 03/27/24 23:45 03/30/24 07:20
Sublimaze IV 100 mls
PER PROTOCOL WILLAM Administration
Protocol
Per Protocol
Dexmedetomidine HCl 400 mcg in 100 mls @ 0 mls/hr 03/28/24 03:15 03/29/24 10:33
Precedex IV 100 mls
PER PROTOCOL WILLAM Administration
Protocol
Per Protocol
Phenylephrine HCl 50 mg in 250 mls @ 0 mls/hr 03/28/24 03:30 03/28/24 09:56
[place]-Synephrine IV 250 mls
PER PROTOCOL WILLAM Administration
Protocol
Per Protocol
Vasopressin 20 units in 100 mls @ 0 mls/hr 03/28/24 14:15 03/29/24 10:06
Pitressin IV 100 mls
PER PROTOCOL WILLAM Administration
Protocol
Per Protocol
Norepinephrine Bitartrate 8 mg 258 mls @ 0 mls/hr 03/28/24 15:45 03/29/24 16:21
/ Dextrose IV 258 mls
PER PROTOCOL WILLAM Administration
Protocol
Per Protocol
Acetaminophen 1,000 mg in 100 mls @ 400 mls/hr 03/29/24 03:23 03/29/24 10:15
Ofirmev IV 04/02/24 03:22 100 mls
Q6HPRN PRN Administration
fever>100.3/mild pain
Protocol
Argatroban 250 mg/ Sodium 252.5 mls @ 0 mls/hr 03/29/24 13:00 03/29/24 14:48
Chloride IV 252.5 mls
PER PROTOCOL WILLAM Administration
Protocol
Per Protocol
Lorazepam 1 mg 03/28/24 12:39 03/30/24 01:49
Lorazepam 2 Mg/Ml Vial IV 04/25/24 10:01 1 mg
Q4HPRN PRN Administration
anxiety
Metoprolol Tartrate 2.5 mg 03/28/24 00:00 03/27/24 23:05
Metoprolol 5 Mg/5 Ml Vial IV 04/25/24 00:00 2.5 mg
Q8 WILLAM Administration
Ondansetron HCl 4 mg 03/24/24 17:27 03/27/24 03:58
Ondansetron 4 Mg/2 Ml Vial IV 04/21/24 17:26 4 mg
Q6HPRN PRN Administration
nausea and vomiting
Sodium Chloride 0 flush 03/24/24 14:00
Sodium Chloride 0.9% (Flush) Syringe IV 04/21/24 13:59
PER PROTOCOL WILLAM
Sodium Chloride 0.5 ml 03/28/24 12:41
Nss (Pf) 10 Ml Vial For Ativan 1 Mg Dose IV 04/25/24 12:40
Q4HPRN PRN
IV LORAZEPAM DILUTION
Sodium Chloride 8 ml 03/29/24 22:00 03/29/24 23:45
Nss 8 Ml Qhs IV 04/26/24 21:59 Not Given
HS WILLAM
Review of Systems
-
Unable to obtain full review of systems at this time due to: Patient Intubation
Physical Exam
-
General: Intubated
HEENT: Negative Jaundice
Extremities: Edema
Neurology: Other (intubated)
Labs
Lab Results
WBC 38.2 10^3/uL (4.8-10.8) H 03/30/24 04:28
RBC 3.74 10^6/uL (4.20-5.40) L 03/30/24 04:
Hgb 10.5 g/dL (12.0-16.0) L 03/30/24 04:28
Hct 30.1 % (37.0-47.0) L 03/30/24 04:
MCV 80.5 fL (81.0-99.0) L 03/30/24 04:28
MCH 28.1 pg (27.0-31.0) 03/30/24 04:28
MCHC 34.9 g/dL (33.0-37.0) 03/30/24 04:28
RDW 14.1 % (11.5-14.5) 03/30/24 04:28
Plt Count 54 10^3/uL (130-400) L 03/30/24 04:28
MPV 12.0 fL (7.4-10.4) H 03/30/24 04:28
Abs Immat Gran (auto) 1.4 10^3/uL (0-0.05) H 03/30/24 04:28
Absolute Neuts (auto) 34.7 10^3/uL (1.4-6.5) H 03/30/24 04:28
Absolute Lymphs (auto) 1.2 10^3/uL (1.2-3.4) 03/30/24 04:28
Absolute Monos (auto) 0.9 10^3/uL (0.1-0.6) H 03/30/24 04:28
Absolute Eos (auto) 0.0 10^3/uL (0-0.7) 03/30/24 04:
Absolute Basos (auto) 0.0 10^3/uL (0-0.2) 03/30/24 04:28
Immature Gran % 3.6 % (0-0.5) H 03/30/24 04:28
Neutrophils % 90.9 % (42.2-75.2) H 03/30/24 04:28
Lymphocytes % 3.1 % (20.5-51.1) L 03/30/24 04:
Monocytes % 2.4 % (1.7-9.3) 03/30/24 04:
Eosinophils % 0.0 % (0-6) 03/30/24 04:28
Basophils % 0.0 % (0-2) 03/30/24 04:
Creatinine 0.9 mg/dL (0.6-1.0) 03/30/24 04:28
Vital Signs
Vital Signs
Temp Pulse Resp BP Pulse Ox
100.1 F 58 14 89/58 98
03/30/24 07:00 03/30/24 09:20 03/30/24 09:20 03/28/24 15:00 03/30/24 09:20
--- NOTE | 2024-03-30 10:13 | W.PN.HOSP.TC ---
Today's Communication/Plan
-
transition to comfort care
Hospice consult
Assessment / Plan
Assessment / Plan
78yo F with PMHx of 2nd degree AVB type 2, diverticulitis, HTN, HLD came with nausea and abd pain for 1 week. She was seen in ED [address] at that time showed constipation, but with decompressed sigmoid. At this time concern for large
bowel obstruction with transition point in the sigmoid. Found stricture 2/2 diverticulosis, had stent placed on 03/25/24, however remained in distress. Repositioning attempted on 03/27/24 and during sigmoidoscopy patient found ischemic bowel, so Davila
done by ColoRectal Sx. Patient also was found hypoxic on 03/27/24 after attempt to reposition the stent, possible aspiration pneumonia that later complicated with septic shock and managed in ICU as remained intubated postOP. ALso concern for HIT, so
argatroban was started on 03/29/24.
Family made a decision for comfort care based on previous patient wishes and ongoing complexity of the management
A/P:
#Large bowel obstruction with ischemic bowel
#Aspiration pneumonia with septic shock and acute hypoxic failure ands LLL consolidation on XR
#Leukemoid reaction
#2nd degree Mobitz type 1 AVB
#Essential HTN
#HLD
#Anxiety d/o
#Thrombocytopenia
#Diverticulosis
#Small hiatal hernia
#DJD
#Hypokalemia
Transition to comfort care upon extubation
Hospice consult
Family is in agreement that with comfort care no new diagnostic tests will be pursued and medical management will be limited to symptomatic with opioids and ativan with target of patient comfort. Abx, IVF, anticoag and other medications will be
stoopped and patient will proceed to terminal extubation. They verbalized understanding of this
DVT ppx NA
DNR/DNI
I have spent at least 57min reviewing chart, test results and direct aptient care
Anticipated Discharge: Within 24 hours
Subjective/Interval History
-
Date of Service: March 30, 2024
Objective Data
-
Labs:
Laboratory Results
03/30/24 03/30/24 03/30/24
01:32 02:18 04:28
WBC 39.0 H 38.2 H
Hgb 10.2 L 10.5 L
Hct 28.9 L 30.1 L
Plt Count 54 L D 54 L
PT 31.8 H
INR 3.08
APTT 78.6 H 64.9 H
HCO3 24.5
Sodium 137
Potassium 3.5
Chloride 102
Carbon Dioxide 23
BUN 31 H
Creatinine 0.9
Glucose 98
Calcium 7.6 L
Total Bilirubin 0.9
AST 58 H
ALT 30
Alkaline Phosphatase 71
Vital Signs:
Vital Signs
Temp Pulse Resp BP Pulse Ox
100.1 F 58 14 89/58 98
03/30/24 07:00 03/30/24 09:20 03/30/24 09:20 03/28/24 15:00 03/30/24 09:20
I&O
03/29/24 03/30/24 03/31/24
06:59 06:59 06:59
Intake Total 7820.2 / 8132.2 2047.9 / 2047.9 116.4 / 116.4
Output Total 2344 / 2444 2024 60 / 60
Balance 5476.2 / 5688.2 22.9 / 22.9 56.4 / 56.4
Review of Systems
-
Unable to obtain full review of systems at this time due to: Patient Intubation
Physical Exam
-
General: Intubated
Neuro: Sedated
--- NOTE | 2024-03-30 10:54 | W.PN.UPDATE ---
Update Note
Progress Note Update
Met with daughter, Yesenia, this morning, as well as patient's son, Toni. Decision made to stop treatment and transition to comfort care. Patient had bleeding from colostomy overnight. Argatroban currently off. Levophed at 6mcg/min. On fentanyl
drip at 125mcg/hr. She appears comfortable. On FiO2 40%. Will transition to comfort care with terminal extubation. Emotional support was provided. All questions were answered. Primary hospitalist aware of plan.
[2024-03-30] MEDS: DILAUDID 1 MG IV (11:16)
--- NOTE | 2024-03-30 11:32 | W.PN.CARDCBS ---
Today's Communication / Plan
-
Comfort care
Sign off
Impression / Plan
-
PCP: Dr. Cooper
Rehabilitation Medicine Physician: Cristiana
Assessment:
Presented 03/24/2024 with abdominal pain, nausea and constipation x 1 wk
Large bowel obstruction with possible ischemic bowel
Status post exploratory laparotomy, sigmoidectomy, creation of end colostomy 03/27/24
Hypotension requiring pressors
Shock suspected secondary to sepsis
Atrial tachycardia
Sinus rhythm with first-degree AV block with intermittent second-degree AV block Mobitz type I
HTN
Hyperlipidemia
Palpitations
Family history of premature CAD
Anxiety
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
DNR
3-day Bardy monitor completed 11/20/2020: Sinus rhythm with heart rate range 45 to 106 bpm, average heart rate 69 bpm. First-degree AV block with brief episodes of winky block noted. There was no significant pauses, 12 episodes of atrial tachycardia
with isolated PACs and rare PVCs
Echo 09/01/08: EF 60% with mild pulmonary hypertension, RVSP 42 mmHg
Echo 03/26/24: EF 65 to 70%, normal RV size and function, mild MR, mild TR
EKG 03/27/24 reviewed: ST w/ first degree AVB
Plan:
Episode of atrial tachycardia versus atrial flutter on 03/29
No treatment indicated and was already on argatroban at that time
Family has elected for comfort care
Discussed with daughter in detail for 20 minutes
Will sign off
HPI: 78-year-old woman past medical history as below who presents with worsening constipation, abdominal distention and nausea. Cardiology is consulted for bradycardia and second-degree AV block. Patient evaluated in the ED 3 days ago and was
diagnosed with constipation. Now returns with worsening symptoms and CT of the abdomen and pelvis revealed bowel obstruction for which GI and surgery are discussing potential stenting +/- ex lap. NG tube placed in the ER with greater than 1 L of
gastric contents suctioned, patient tells me with this she has had some improvement in her symptoms. In regards to her heart rate, we discussed that prior outpatient laboratory monitor revealed second-degree AV block Mobitz type I in 2020. Telemetry
here also showing Mobitz, no high-grade AV block or significant pauses. Patient is not reporting any lightheadedness, dizziness or syncope to me. Her chest/epigastric discomfort seems to be related to her GI symptoms and is improving with NG tube
placement and decompression.
Progress Note - Rehabilitation Medicine Physician
Subjective
Date of Service: March 30, 2024
Patient remains sedate on the ventilator. Family plans for comfort care
Objective
Labs:
03/30/24 04:28
03/30/24 04:28
Labs
Hgb 10.5 g/dL (12.0-16.0) L 03/30/24 04:28
Hct 30.1 % (37.0-47.0) L 03/30/24 04:28
Plt Count 54 10^3/uL (130-400) L 03/30/24 04:28
PT 31.8 Sec (11.4-14.6) H 03/30/24 02:18
INR 3.08 03/30/24 02:18
APTT 64.9 Sec (23.4-35.0) H 03/30/24 02:18
Sodium 137 mmol/L (135-145) 03/30/24 04:28
Potassium 3.5 mmol/L (3.5-5.1) 03/30/24 04:28
BUN 31 mg/dl (7-17) H 03/30/24 04:28
Creatinine 0.9 mg/dL (0.6-1.0) 03/30/24 04:28
Glucose 98 mg/dl (70-99) 03/30/24 04:28
Troponins
03/28/24
08:51
Troponin I 0.149 H*
Vital Signs and I&O:
Vital Signs
Temp Pulse Resp BP Pulse Ox
100.1 F 58 14 89/58 98
03/30/24 07:00 03/30/24 09:20 03/30/24 09:20 03/28/24 15:00 03/30/24 09:20
Vital Signs
Temp Pulse Resp BP Pulse Ox
100.1 F 58 14 89/58 98
03/30/24 07:00 03/30/24 09:20 03/30/24 09:20 03/28/24 15:00 03/30/24 09:20
Intake & Output
03/28/24 03/29/24 03/30/24 03/31/24
06:59 06:59 06:59 06:59
Intake Total 3367.4 / 3657.9 7820.2 / 8132.2 2047.9 / 2047.9 116.4 / 116.4
Output Total 1392 / 1392 2344 / 2444 2024 / 2024 60 / 60
Balance 1975.4 / 2265.9 5476.2 / 5688.2 22.9 / 22.9 56.4 / 56.4
Physical Exam
Physical Exam
General: Sedate and on the ventilator.
--- NOTE | 2024-03-30 11:33 | PTCARENOTE ---
extubated smoothly to room air, levophed dcd as ordered, precedex off. med with dilaudid approx 1105 per order. oral care. family bedside. resting, face relaxed, resps even nonlabored at 12.
--- NOTE | 2024-03-30 12:03 | RESPNOTE ---
Respiratory: patient extubated at 1130 with out incident, no stridor, no wheeze.
--- NOTE | 2024-03-30 14:36 | CM ---
Patient physician placed consult earlier today for hospice, referral sent to [facility] hospice and patient extubated today. CM will continue to follow for discharge planning needs.
Plan; hospice assessment
--- NOTE | 2024-03-30 14:38 | HOSPNOTE ---
Met with patient's son and daughter and reviewed hospice care, discussed [facility] hosp[facility] care. Patient would like no further agressive treatments. Hospice liason to follow up with the family 03/31/24.
--- NOTE | 2024-03-30 16:11 | CHAP ---
Asked by nurse to assist Ivan's family, as they were planning to withdraw life support. Contacted [facility] fur tanner line. Meanwhile, provided emotional support to daughter and son in law; offered prayers from the [facility]. Fr. Jameson arrived and
anointed Ivan. [employer] assured the family of on-going availability should they have need.
--- NOTE | 2024-03-30 16:28 | PTCARENOTE ---
fentanyl orders clarified, no change, positioned for comfort. Oral care. Family remains bedside. rests when undisturbed.
--- NOTE | 2024-03-30 17:32 | W.PN.UPDATE ---
Update Note
Progress Note Update
Arrived to the patient's room at around 10 AM for evaluation, but was informed by nurse that family transitioned her care to comfort measures. Spoke with daughter, Otilia and son, and expressed my sorrow and sympathy. They stated that prolonged
intubation/sedation was not within their mothers desires and feel the best option to uphold the patient's wishes is comfort measures and terminal extubation.
[2024-03-30] MEDS: OFIRMEV 100 IV (18:16)
--- NOTE | 2024-03-30 18:20 | PTCARENOTE ---
turned, skin care, family support. mouth care. T noted, ofirmev dose given.
--- NOTE | 2024-03-30 19:24 | PTCARENOTE ---
Addendum entered by Arnaldo Abraham RN 03/30/24 19:51:
All patient belongings brought home with daughter.
Original Note:
Assumed care of patient approx, 184.
During shift report patient TOD: [id number], see provider pronouncement for further details.
Family bedside with patient.
--- NOTE | 2024-03-30 20:06 | W.PN.DEATH ---
Pronouncement of
-
Called to see patient to pronounce.
No spontaneous heart tones or respirations noted.
Patient not responsive to verbal stimuli.
Patient is pronounced .
Time of : 18:54
Date of : 03/30/24
Cause of : large bowel obstruction, ischemic colitis, septic shock
Family Notified: Yes (son and daughter at bedside at time of )
== END 2024-03-30 18:54 | disposition expired | DRG 329 ==
LOC: ICU 13:59
PROVIDERS: Internal Medicine Critical Care Medicine; Nurse Practitioner Family; Nurse Practitioner Primary Care; Registered Nurse; ADMITTING PHYSICIAN Internal Medicine; CONSULT PHYSICIAN Internal Medicine Cardiovascular Disease; CONSULT PHYSICIAN Internal Medicine Critical Care Medicine; CONSULT PHYSICIAN Internal Medicine Hematology & Oncology; CONSULT PHYSICIAN Internal Medicine Infectious Disease; CONSULT PHYSICIAN Surgery; EMERGENCY PHYSICIAN Emergency Medicine; FAMILY PHYSICIAN Emergency Medicine; OTHER PHYSICIAN Internal Medicine Gastroenterology
PROC: 0D7N8DZ Dilation of Sigmoid Colon with Intraluminal Device, Via Natural or Artificial Opening Endoscopic (ICD-10-PCS; 2024-03-25)
PROC: 0D1E0Z4 Bypass Large Intestine to Cutaneous, Open Approach (ICD-10-PCS; 2024-03-27)
PROC: 0DJD8ZZ Inspection of Lower Intestinal Tract, Via Natural or Artificial Opening Endoscopic (ICD-10-PCS; 2024-03-27)
PROC: 0DTN0ZZ Resection of Sigmoid Colon, Open Approach (ICD-10-PCS; 2024-03-27)
PROC: 5A1945Z Respiratory Ventilation, 24-96 Consecutive Hours (ICD-10-PCS; 2024-03-27)
PROC: 02HV33Z Insertion of Infusion Device into Superior Vena Cava, Percutaneous Approach (ICD-10-PCS; 2024-03-28)
DX: K56.699 Other intestinal obstruction unspecified as to partial versus complete obstruction (principal); A41.9 Sepsis, unspecified organism; R65.21 Severe sepsis with septic shock; J69.0 Pneumonitis due to inhalation of food and vomit; J96.01 Acute respiratory failure with hypoxia; K55.9 Vascular disorder of intestine, unspecified; E87.20 Acidosis, unspecified; N17.9 Acute kidney failure, unspecified; K94.01 Colostomy hemorrhage; I47.19 Other supraventricular tachycardia; Z66 Do not resuscitate; Z51.5 Encounter for palliative care; I10 Essential (primary) hypertension; F41.9 Anxiety disorder, unspecified; F32.A Depression, unspecified; E78.00 Pure hypercholesterolemia, unspecified; I44.1 Atrioventricular block, second degree; D75.839 Thrombocytosis, unspecified; K44.9 Diaphragmatic hernia without obstruction or gangrene; K57.30 Diverticulosis of large intestine without perforation or abscess without bleeding; E86.0 Dehydration; E83.41 Hypermagnesemia; R00.1 Bradycardia, unspecified; Y83.3 Surgical operation with formation of external stoma as the cause of abnormal reaction of the patient, or of later complication, without mention of misadventure at the time of the procedure; D69.6 Thrombocytopenia, unspecified; K64.9 Unspecified hemorrhoids; D72.823 Leukemoid reaction; E87.6 Hypokalemia; I27.20 Pulmonary hypertension, unspecified; E88.09 Other disorders of plasma-protein metabolism, not elsewhere classified; R82.998 Other abnormal findings in urine; K21.9 Gastro-esophageal reflux disease without esophagitis; K58.1 Irritable bowel syndrome with constipation; M47.819 Spondylosis without myelopathy or radiculopathy, site unspecified; Z79.82 Long term (current) use of aspirin; Z82.49 Family history of ischemic heart disease and other diseases of the circulatory system; Z90.710 Acquired absence of both cervix and uterus; Z88.0 Allergy status to penicillin; Z90.49 Acquired absence of other specified parts of digestive tract
CPT/HCPCS: 88307; 71045; 74018; 74019; 74177; 74330; 76000; 80048; 80053; 80076; 80202; 81003; 81015; 82248; 82330; 82805; 83605; 83690; 83735; 84100; 84132; 84134; 84302; 84443; 84478; 84484; 85025; 85027; 85384; 85610; 85730; 86022; 86140; 86850; 86900; 86901; 87040; 87045; 87046; 87070; 87077; 87086; 87186; 87205; 87324; 87427; 87449; 87641; 93005; 93306; 93970; 94002; 94003; 96361; 96374; 96375; 99285; C1769; C1776; C1876; J0883; P9047; Q9967